=== PATIENT | male | born 1980 | race Caucasian/White ===

== ENCOUNTER 2017-01-04 11:20 | Emergency (ER) | payer OTHER ==
[~2017-01-04] VITALS: Ht 182.9 cm; Wt 85.8 kg
[~2017-01-04 11:20] MED LIST: RANI300T2 PO
[2017-01-04 11:48] VITALS: TEMP 36.4; Ht 182.9 cm; Wt 85.8 kg
--- NOTE | 2017-01-04 12:44 | EMERGENCY ROOM VISIT NOTE ---
History Report prepared by Randall: Cristo Christine Under the Supervision of: Dr. Shannan Iyer D.O. First contact with patient: 12:26 Chief Complaint: MENTAL HEALTH EVALUATION Stated Complaint: RINGING IN EAR History of Present Illness The patient is a 36 year old male who presents to the Emergency Room with complaints of episodes of hallucinations that started 2 days ago. He says that he was given a substance that he thought was cocaine 3 days ago, and he smoked it. The patient notes that as soon as he tasted it, he knew that it was not cocaine. The patient thinks it may have been bath salts or crystal meth. He took Suboxone after smoking the substance to try to sleep. A day later after smoking the substance, the patient started getting symptoms, including staring into space and not saying anything, per the patient's . The patient said he was concentrating because he was hearing something. He says that he has been hearing voices that consist of a artem and a girl. He says that he hears them often, and they are following him. Per the patient's , the patient last night kept saying that "they're at the door". The patient says that they are police, and they use walky-talkies that beep. The patient states that even in the waiting room here, he was hearing them. The patient notes that they would not come because there were dogs around. He wishes that the two people would come out if they are following him. The patient states that he has never had this kind of reaction before, and has never had mental health issues before. The patient used to be in the , and got into pain pills. The patient is not on the Suboxone program, but he buys Suboxone off the street, and uses it whenever he feels like he wants to get some pain pills. The patient started using cocaine in the past 8 months. He states that he had not been using recreational drugs much before the cocaine. He denies any major medical problems. He denies any chest pain, shortness of breath, palpitations, dizziness , cough, or diarrhea. The patient smokes cigarettes, but does not drink alcohol. Source of History: patient, spouse/significant other Onset: 2 days ago Position: other (global - hallucinations) Quality: other (hearing 2 voices, 1 artem and 1 girl that are following him) Timing: other (episodes) Associated Symptoms: No SOB, No chest pain, No cough, No diarrhea Note: Associated symptoms: Denies palpitations, dizziness. Review of Systems See HPI for pertinent positives & negatives. A total of 10 systems reviewed and were otherwise negative. Past Medical & Surgical Medical Problems: (1) Gout (2) Spinal stenosis Family History No pertinent family history Social History Smoking Status: Current Every Day Smoker Alcohol Use: none Drug Use: cocaine Marital Status: in relationship Housing Status: lives with significant other Occupation Status: employed Current/Historical Medications Scheduled Ranitidine (Zantac), 300 MG PO HS Allergies Coded Allergies: No Known Allergies (Unverified , 01/04/17) Physical Exam Vital Signs Date Time Temp Pulse Resp B/P Pulse Ox O2 Delivery O2 Flow Rate FiO2 01/04/17 14:00 113 20 135/90 98 Room Air 01/04/17 11:48 36.4 92 20 163/103 99 Room Air Physical Exam GENERAL: alert, well appearing, well nourished, no distress, non-toxic EYE EXAM: normal conjunctiva, PERRL and EOM's grossly intact OROPHARYNX: no exudate, no erythema, lips, buccal mucosa, and tongue normal and mucous membranes are moist NECK: supple, no nuchal rigidity, no adenopathy, non-tender LUNGS: Clear to auscultation. Normal chest wall mechanics HEART: no murmurs, S1 normal and S2 normal ABDOMEN: abdomen soft, non-tender, normo-active bowel sounds, no masses, no rebound or guarding. BACK: Back is symmetrical on inspection and there is no deformity, no midline tenderness, no CVA tenderness. SKIN: no rashes and no bruising UPPER EXTREMITIES: upper extremities are grossly normal. LOWER EXTREMITIES: No pitting edema. NEURO EXAM: Normal sensorium, cranial nerves II-XII grossly intact, normal speech, no gross weakness of arms, no gross weakness of legs. No drift. Finger to nose intact. Gross sensation intact. Medical Decision & Procedures Laboratory Results 01/04/17 12:44 Red Blood Count 5.06, Mean Corpuscular Volume 87.4, Mean Corpuscular Hemoglobin 29.4, Mean Corpuscular Hemoglobin Concent 33.7, Mean Platelet Volume 11.1, Neutrophils (%) (Auto) 65.8, Lymphocytes (%) (Auto) 22.7, Monocytes (%) (Auto) 8.9, Eosinophils (%) (Auto) 1.9, Basophils (%) (Auto) 0.5, Neutrophils # (Auto) 7.74, Lymphocytes # (Auto) 2.66, Monocytes # (Auto) 1.04, Eosinophils # (Auto) 0.22, Basophils # (Auto) 0.06 01/04/17 12:44 Test 01/04/17 12:44 01/04/17 13:05 White Blood Count 11.74 K/uL (4.8-10.8) Red Blood Count 5.06 M/uL (4.7-6.1) Hemoglobin 14.9 g/dL (14.0-18.0) Hematocrit 44.2 % (42-52) Mean Corpuscular Volume 87.4 fL (80-100) Mean Corpuscular Hemoglobin 29.4 pg (25-34) Mean Corpuscular Hemoglobin Concent 33.7 g/dl (32-36) Platelet Count 304 K/uL (130-400) Mean Platelet Volume 11.1 fL (7.4-10.4) Neutrophils (%) (Auto) 65.8 % Lymphocytes (%) (Auto) 22.7 % Monocytes (%) (Auto) 8.9 % Eosinophils (%) (Auto) 1.9 % Basophils (%) (Auto) 0.5 % Neutrophils # (Auto) 7.74 K/uL (1.4-6.5) Lymphocytes # (Auto) 2.66 K/uL (1.2-3.4) Monocytes # (Auto) 1.04 K/uL (0.11-0.59) Eosinophils # (Auto) 0.22 K/uL (0-0.5) Basophils # (Auto) 0.06 K/uL (0-0.2) RDW Standard Deviation 40.6 fL (36.4-46.3) RDW Coefficient of Variation 12.7 % (11.5-14.5) Immature Granulocyte % (Auto) 0.2 % Immature Granulocyte # (Auto) 0.02 K/uL (0.00-0.02) Anion Gap 3.0 mmol/L (3-11) Est Creatinine Clear Calc Drug Dose 94.3 ml/min Estimated GFR () 90.3 Estimated GFR (Non- 77.9 BUN/Creatinine Ratio 7.6 (10-20) Calcium Level 9.6 mg/dl (8.5-10.1) Total Bilirubin 0.6 mg/dl (0.2-1) Aspartate Amino Transf (AST/SGOT) 13 U/L (15-37) Alanine Aminotransferase (ALT/SGPT) 22 U/L (12-78) Alkaline Phosphatase 65 U/L (45-117) Total Protein 7.9 gm/dl (6.4-8.2) Albumin 4.6 gm/dl (3.4-5.0) Globulin 3.3 gm/dl (2.5-4.0) Albumin/Globulin Ratio 1.4 (0.9-2) Thyroid Stimulating Hormone (TSH) 1.090 uIu/ml (0.300-4.500) Salicylates Level 2.8 mg/dl (2.8-20) Acetaminophen Level < 2 ug/ml (10-30) Ethyl Alcohol mg/dL < 3.0 mg/dl (0-3) Urine Color YELLOW Urine Appearance CLEAR (CLEAR) Urine pH 7.0 (4.5-7.5) Urine Specific [place] 1.011 (1.000-1.030) Urine Protein NEG (NEG) Urine Glucose (UA) NEG (NEG) Urine Ketones NEG (NEG) Urine Occult Blood NEG (NEG) Urine Nitrite NEG (NEG) Urine Bilirubin NEG (NEG) Urine Urobilinogen NEG (NEG) Urine Leukocyte Esterase NEG (NEG) Urine Opiates Screen NEG (NEG) Urine Methadone, Qualitative NEG (NEG) Urine Barbiturates NEG (NEG) Urine Phencyclidine (PCP) Level NEG (NEG) Ur Amphetamine/Methamphetamine POS (NEG) MDMA (Ecstasy) Screen POS (NEG) Urine Benzodiazepines Screen NEG (NEG) Urine Cocaine Metabolite NEG (NEG) Urine Marijuana (THC) NEG (NEG) Laboratory results per my review. Medications Administered Medications (Trade) Dose Ordered Sig/Nabor Route Start Time Stop Time Status Last Admin Dose Admin Nicotine (Nicoderm Cq 21MG Patch) 1 patch STK-MED ONCE .ROUTE 01/04/17 17:12 01/04/17 17:13 DC 01/04/17 17:14 1 PATCH ED Course 1238: The patient was evaluated in room A6. A complete history and physical exam was performed. 1541: I reevaluated the patient and he still wants to go home. 1700: The mental health rn field case manager has informed me that the patient will sign a voluntary, and will be evaluated for further treatment at the [facility]. The patient verbally expressed understanding and agreement of the treatment plan. Medical Decision Differential diagnosis: Etiologies such as mood disorder, infection, hypoglycemia, electrolyte abnormalities, cardiac sources, intracerebral event, toxicologic, neurologic, as well as others were entertained. Patient admits to substance abuse, concern for additional psychiatric etiology of hallucinations and paranoia. In light of timing of ingestion and persistence of symptoms, patient evaluated for mental health. I feel patient is a safety risk going home, and after extensive bedside discussion patient agreed for voluntary admission. Labs otherwise reassuring. Did not feel patient warranted neuro imaging at this time. No recent trauma. Doubt occult infectious etiology, no evidence of joint abnormality. Impression Primary Impression: Hallucinations Additional Impressions: Paranoia Substance abuse Scribe Attestation The scribe's documentation has been prepared under my direction and personally reviewed by me in its entirety. I confirm that the note above accurately reflects all work, treatment, procedures, and medical decision making performed by me. Departure Information Dispostion Transfer Acute Care Facility (to [facility]) Referrals More Vazquez M.D. (PCP) Patient Instructions My [facility] Problem Qualifiers
[2017-01-04 13:02] LABS: BASO % 0.5 %; BASO ABS # 0.06 K/uL (0-0.2); COMPLETE YES; EOS % 1.9 %; HEMATOCRIT 44.2 % (42-52); IG% 0.2 %; LYMPH % 22.7 %; LYMPH ABS # 2.66 K/uL (1.2-3.4); MEAN CELL VOLUME 87.4 fL (80-100); MEAN CORPUSCULAR HEMOGLOBIN 29.4 pg (25-34); MEAN CORPUSCULAR HGB CONC 33.7 g/dl (32-36); MEAN PLATELET VOLUME 11.1 fL (7.4-10.4); MONO % 8.9 %; NEUT % 65.8 %; PLATELET COUNT 304 K/uL (130-400); RED BLOOD COUNT 5.06 M/uL (4.7-6.1); WHITE BLOOD COUNT 11.74 K/uL (4.8-10.8)
[2017-01-04 13:22] LABS: BUN/CREATININE RATIO 7.6 (10-20); CALCIUM 9.6 mg/dl (8.5-10.1); CREATININE 1.2 mg/dl (0.60-1.40)
[2017-01-04 13:32] LABS: ACETAMINOPHEN < 2 ug/ml (10-30); ALB/GLOB RATIO 1.4 (0.9-2); THYROID STIMULATING HORMONE 1.09 uIu/ml (0.300-4.500)
[2017-01-04 13:43] LABS: BENZODIAZEPINE, URINE NEG (NEG); COCAINE,URINE NEG (NEG); PHENCYCLIDINE, URINE NEG (NEG)
[2017-01-04 13:57] LABS: URINE APPEARANCE CLEAR (CLEAR); URINE BILIRUBIN NEG (NEG); URINE COLOR YELLOW; URINE NITRITE NEG (NEG); URINE SPECIFIC GRAVITY 1.011 (1.000-1.030); UROBILINOGEN NEG (NEG); ZZUR CULT IF INDIC CLEAN CATCH NO
[2017-01-04 13:59] LABS: MANUAL MICROSCOPIC REQUIRED? NO; REVIEW REQ? NO
[2017-01-04] MEDS ORDERED: NICOTINE 21 MG/24 HR TDSY ONE (17:12)
[2017-01-04] MEDS ORDERED: NURSING VERBAL MED ORDER ONE (17:15)
[2017-01-04] MEDS ORDERED: SODIUM CHLORIDE 0.9% 1000ML 1,000 ML IV STA (17:47)
[2017-01-04] MEDS ORDERED: hydrOXYzine HCL 10 MG TAB PO STA (20:26)
--- NOTE | 2017-01-04 20:52 | DIAGNOSTIC IMAGING REPORT ---
CT HEAD WITHOUT CONTRAST (CT) CLINICAL HISTORY: hallucinations COMPARISON STUDY: No previous studies for comparison. TECHNIQUE: Axial CT of the brain is performed from the vertex to the skull base. IV contrast was not administered for this examination. CT DOSE: 537.48 mGy.cm FINDINGS: No intra or extra-axial mass lesions are visualized. There is no CT evidence of acute cortical infarction. There is no evidence of midline shift. There is no acute hemorrhage. No calvarial fractures are visualized. There is no evidence of pathologic ventricular dilatation. There is no evidence of acute sinusitis IMPRESSION: Normal noncontrast head CT. Electronically signed by: Nelson Beatty M.D. 01/04/2017 8:50 PM Dictated Date/Time: 01/04/2017 8:50 PM
[2017-01-04 22:48] VITALS: BP 116/83; PULSE 120; O2SAT 98
[2017-01-12 11:43] LABS: SYNTHETIC CANNABINOIDS QL URIN NEGATIVE (Negative)
== END 2017-01-04 22:50 ==
LOC: C.EDB 11:22 → C.EDA 22:50
DX: R44.3 Hallucinations, unspecified (principal); F22 Delusional disorders; F19.10 Other psychoactive substance abuse, uncomplicated; Z79.899 Other long term (current) drug therapy; F17.200 Nicotine dependence, unspecified, uncomplicated

== ENCOUNTER → 2017-05-11 | Outpatient (CLI) | payer OTHER | END | disposition home or self-care (01) | LOC: C.LAB 17:08 | DX: Z02.83 Encounter for blood-alcohol and blood-drug test (principal) ==

== ENCOUNTER 2024-04-02 16:56 | Inpatient (IN) ==
[2024-04-02] MEDS: MULTI-VITAMIN INFUSION 10 ML, THIAMINE HCL 100 MG, FOLIC ACID 1 MG in SODIUM CHLORIDE 0... IV ONE (17:31)
[2024-04-02 18:00] LABS: Hematocrit (blood only) 37.9 % (42.0-52.0); Hemoglobin 12.8 g/dl (14.0-18.0); Mean Corpuscular Hemoglobin 32.6 pg (25.0-34.0); Mean Corpuscular Hgb Conc 33.8 g/dL (32.0-36.0); Mean Corpuscular Volume 96.4 fL (80.0-100.0); Mean Platelet Volume 10.5 fL (9.4-12.4); Platelet Count 274 K/uL (130-400); RDW Coefficient of Variation 15.9 % (11.5-14.5); RDW Standard Deviation 56.5 fL (36.4-46.3); Red Blood Count 3.93 M/uL (4.70-6.10); White Blood Count 13.13 K/ul (4.8-10.8)
[2024-04-02 18:48] LABS: Basophils # (auto) 0.14 K/uL (0.00-0.20); Basophils % (auto) 1.1 %; Eosinophils # (auto) 0.21 K/uL (0.00-0.50); Eosinophils % (auto) 1.6 %; Immature Granulocytes # (auto) 0.11 K/uL (0.01-0.20); Immature Granulocytes % (auto) 0.8 %; Lymphocytes # (auto) 6.75 K/uL (1.20-3.40); Lymphocytes % (auto) 51.4 %; Monocytes # (auto) 0.98 K/uL (0.11-0.59); Monocytes % (auto) 7.5 %; Neutrophils # (auto) 4.94 K/uL (1.40-6.50); Neutrophils % (auto) 37.6 %
--- NOTE | 2024-04-02 18:51 | Emergency Department Note ---
Impression & Plan Alcohol withdrawal syndrome, Alcoholic intoxication ED Provider Note NAME: ASTRID PERZE AGE: 43 SEX: M : 1980 ARRIVES VIA: Walk-In INFORMANT: Patient, ED PROVIDER(S): Shawnee Garcia MD CHIEF COMPLAINT: Alcohol withdrawal HPI: This is a 43-year-old male presenting for alcohol withdrawal. Patient states that he has been drinking excessively for 5 years, every single day. He notes that more recently he has been drinking "1 gallon of siri radha per day as well as 12 twisted teas ". He states he is never gone 1 day without drinking. He notes when he wakes up he is nauseous, tremulous and very anxious. He drinks all day, every day. He reports he wants to get sober and detox. He reports no current chest pain, nausea, vomiting, diarrhea, arm pain, leg pain, headache, vision changes. He last drank about 3 hours prior to arrival ROS: See above HPI for pertinent positives & negatives. A total of 10 systems reviewed and were otherwise negative. PHYSICAL EXAMINATION: General: resting comfortably in no acute distress, anxious appearing, tearful Head: Normocephalic and atraumatic Eyes: Normal inspection, extraocular muscles intact Ear, nose, throat: Normal external exam Neck: Normal range of motion Respiratory: lungs clear to auscultation bilaterally Cardiovascular: Regular rate/rhythm, no murmur GI: soft, nontender, no guarding or rebound Extremities: nontender, moves all extremities Neuro: The patient awake and alert, appropriately conversive, no focal deficits, symmetric faces Skin: Warm, dry, and intact MEDICAL DECISION MAKING: This is a 43-year-old male presenting for alcohol use disorder/detox request. Will do basic screening blood work. Will give Valium 10 mg due to tachycardia at this time. His heart rate is already between 115 and 130. Will continue to give Valium 10 mg to 20 mg as needed for withdrawal symptoms. -Patient's blood work is reviewed and shows a slight leukocytosis, slight anemia. Electrolytes slightly hypokalemic. No significant bilirubin elevation -Patient continues to be somewhat tremulous and tachycardic. Will redose the Valium at this time -Patient had downtrending heart rate,. More comfortable at this time. Will admit for alcohol detox Differential diagnosis: Alcohol withdrawal, cirrhosis, hepatorenal syndrome ER treatment provided: See below Diagnostics interpreted by me: ECG: None Cardiac Monitoring: An order was placed for continuous cardiac monitoring. The monitor shows a rate of 89 with sinus rhythm. Laboratory studies: As stated above and show below. Imaging studies: See below. Critical Care Note: I have personally spent 40 minutes of critical care time in the direct management of this patient. This includes bedside care, interpretation of diagnostic studies, and testing, discussion with consultants, patient, and family members, and other required patient management activities. This 40 minutes is in excess of all separately billable procedures. Past Med/Surg History Problem List (Updated 04/03/24 @ 00:00 by Shawnee Garcia MD) Alcoholic intoxication (Acute) Alcohol withdrawal syndrome (Acute) Pain, dental (Acute) GERD (gastroesophageal reflux disease) (Acute) Spinal stenosis Gout (Chronic) Pain of left great toe (Acute) Pain, dental (Acute) Surgical History Hx of knee surgery Family History Other No significant family history Social History Smoking Status: Current every day smoker Tobacco Type: Cigarettes Second Hand Exposure: No; Do You Dip or Chew Tobacco: No; Tobacco Cessation Education Requested by Patient: No Hx Alcohol Use: Yes Alcohol type: beer and hard liquor Hx Substance Use: No Preferred Language: Iranian Communication Ability: Effective Corporate Administrator Required: No Beliefs That Will Affect Care: None marital status: Single Current Living Situation: Homeless current occupational status: unemployed Other Information That Helps Us Care for You: No Feels Safe at Home: Hesitant to Answer Safety Concerns: Afraid for Self Assistive Devices: Denture - Upper Allergies Allergies Allergy/AdvReac Type Severity Reaction Status Date / Time No Known Allergies Allergy Verified 04/02/24 18:34 Home Meds Home Medications Medication Instructions Recorded Confirmed acetaminophen 500 mg tablet 1,000 mg PO Q6H PRN Pain 01/12/23 04/02/24 (Tylenol Extra Strength) ibuprofen 200 mg tablet 600 mg PO Q8 PRN Pain 01/12/23 04/02/24 omeprazole 20 mg capsule,delayed 20 mg PO DAILY PRN Acid Reflux 01/12/23 04/02/24 release lidocaine 5 % topical patch 1 patch topical DAILY PRN Pain 02/07/23 04/02/24 (Lidoderm) gabapentin 100 mg capsule 100 mg PO QAM 04/02/24 04/02/24 gabapentin 600 mg tablet 600 mg PO HS 04/02/24 04/02/24 Previous Rx's Medication Instructions Recorded cyclobenzaprine 10 mg tablet 10 mg PO TID PRN muscle spasm #10 01/13/23 tabs methocarbamol 500 mg tablet 500 mg PO Q8H PRN pain #20 tabs 02/07/23 Results & Data (ED) Vital Signs Vital Signs - 24 hr 04/02/24 17:01 04/02/24 17:11 04/02/24 17:18 Temperature 36.5 C Temperature Source Oral Pulse Rate 122 H 119 H 117 H Pulse Rate [Apical] Respiratory Rate 20 22 Respiratory Effort / Characteristics Non-Labored Respiratory Depth Normal Blood Pressure 143/104 H Blood Pressure [Left Arm] Blood Pressure Mean 117 Blood Pressure Mean [Left Arm] Blood Pressure Position [Left Arm] Pulse Oximetry 96 Oxygen Delivery Method Room Air Sepsis Recent Fever Within 48 Hours No Sepsis New/Unexplained Change in Mental Status No Sepsis Action Taken by Nursing No Action Required 04/02/24 17:19 04/02/24 17:20 04/02/24 17:20 Temperature Temperature Source Pulse Rate Pulse Rate [Apical] 125 H Respiratory Rate 19 Respiratory Effort / Characteristics Respiratory Depth Blood Pressure 146/97 H Blood Pressure [Left Arm] 146/97 H Blood Pressure Mean 102 Blood Pressure Mean [Left Arm] 113 Blood Pressure Position [Left Arm] Pulse Oximetry 94 98 Oxygen Delivery Method Room Air Room Air Sepsis Recent Fever Within 48 Hours Sepsis New/Unexplained Change in Mental Status Sepsis Action Taken by Nursing 04/02/24 17:21 04/02/24 17:24 04/02/24 17:30 Temperature Temperature Source Pulse Rate 115 H 117 H Pulse Rate [Apical] Respiratory Rate 17 Respiratory Effort / Characteristics Respiratory Depth Blood Pressure 128/97 Blood Pressure [Left Arm] Blood Pressure Mean 104 Blood Pressure Mean [Left Arm] Blood Pressure Position [Left Arm] Pulse Oximetry 98 99 Oxygen Delivery Method Sepsis Recent Fever Within 48 Hours Sepsis New/Unexplained Change in Mental Status Sepsis Action Taken by Nursing 04/02/24 17:36 04/02/24 17:45 04/02/24 17:57 Temperature Temperature Source Pulse Rate 106 H 105 H Pulse Rate [Apical] Respiratory Rate 24 20 Respiratory Effort / Characteristics Respiratory Depth Blood Pressure Blood Pressure [Left Arm] Blood Pressure Mean Blood Pressure Mean [Left Arm] Blood Pressure Position [Left Arm] Pulse Oximetry 97 97 97 Oxygen Delivery Method Sepsis Recent Fever Within 48 Hours Sepsis New/Unexplained Change in Mental Status Sepsis Action Taken by Nursing 04/02/24 18:00 04/02/24 18:03 04/02/24 18:18 Temperature Temperature Source Pulse Rate 109 H 114 H Pulse Rate [Apical] Respiratory Rate 18 15 Respiratory Effort / Characteristics Respiratory Depth Blood Pressure 140/94 Blood Pressure [Left Arm] Blood Pressure Mean 101 Blood Pressure Mean [Left Arm] Blood Pressure Position [Left Arm] Pulse Oximetry 97 97 Oxygen Delivery Method Sepsis Recent Fever Within 48 Hours Sepsis New/Unexplained Change in Mental Status Sepsis Action Taken by Nursing 04/02/24 18:21 04/02/24 18:35 04/02/24 19:12 Temperature 36.9 C Temperature Source Oral Pulse Rate 106 H Pulse Rate [Apical] 110 H Respiratory Rate 17 16 Respiratory Effort / Characteristics Respiratory Depth Blood Pressure 109/91 Blood Pressure [Left Arm] 128/96 Blood Pressure Mean 98 Blood Pressure Mean [Left Arm] 106 Blood Pressure Position [Left Arm] Sitting Pulse Oximetry 98 98 Oxygen Delivery Method Sepsis Recent Fever Within 48 Hours Sepsis New/Unexplained Change in Mental Status Sepsis Action Taken by Nursing 04/02/24 21:00 04/02/24 21:08 Temperature 36.8 C Temperature Source Oral Pulse Rate 105 H Pulse Rate [Apical] 94 H Respiratory Rate 24 Respiratory Effort / Characteristics Respiratory Depth Blood Pressure Blood Pressure [Left Arm] 122/80 Blood Pressure Mean Blood Pressure Mean [Left Arm] 94 Blood Pressure Position [Left Arm] Pulse Oximetry 96 Oxygen Delivery Method Room Air Sepsis Recent Fever Within 48 Hours Sepsis New/Unexplained Change in Mental Status Sepsis Action Taken by Nursing Laboratory Data 04/02/24 17:19 04/02/24 19:26 Lab Results 04/02/24 04/02/24 Range/Units 17:19 19:26 WBC 13.13 H (4.8-10.8) K/ul RBC 3.93 L (4.70-6.10) M/uL Hgb 12.8 L (14.0-18.0) g/dl Hct 37.9 L (42.0-52.0) % MCV 96.4 (80.0-100.0) fL MCH 32.6 (25.0-34.0) pg MCHC 33.8 (32.0-36.0) g/dL RDW Std Deviation 56.5 H (36.4-46.3) fL RDW Coeff of Dhiraj 15.9 H (11.5-14.5) % Plt Count 274 (130-400) K/uL MPV 10.5 (9.4-12.4) fL Immature Gran % (Auto) 0.8 % Neut % (Auto) 37.6 % Lymph % (Auto) 51.4 % [place] % (Auto) 7.5 % Eos % (Auto) 1.6 % Baso % (Auto) 1.1 % Neut # (Auto) 4.94 (1.40-6.50) K/uL Lymph # (Auto) 6.75 H (1.20-3.40) K/uL [place] # (Auto) 0.98 H (0.11-0.59) K/uL Eos # (Auto) 0.21 (0.00-0.50) K/uL Baso # (Auto) 0.14 (0.00-0.20) K/uL Immature Gran # (Auto) 0.11 (0.01-0.20) K/uL PT 11.1 (9.0-12.0) Seconds INR 1.0 (0.9-1.1) Sodium TNP 137 Potassium TNP 3.1 L Chloride 102 (98-107) mmol/L Carbon Dioxide 19 L (21-32) mmol/L Anion Gap TNP BUN 2 L (6-23) mg/dl Creatinine 0.76 (0.6-1.4) mg/dl Est Cr Clr Drug Dosing 139.0 ml/min Est GFR ( Amer) 130.4 ml/min Est GFR (Non-Af Amer) 112.5 ml/min BUN/Creatinine Ratio 2.6 L (10-20) Glucose 135 H (70-99(Fasting)) mg/dl Calcium 8.6 (8.6-10.3) mg/dl Magnesium TNP 2.0 Total Bilirubin 0.5 (0.2-1.0) mg/dl Direct Bilirubin TNP 0.1 AST TNP 66 H ALT 42 (7-52) U/L Alkaline Phosphatase 133 H (34-104) U/L Total Protein 7.9 (6.0-8.3) gm/dl Albumin 4.1 (3.4-5.0) gm/dl Lipase 50 (11-82) U/L Ethyl Alcohol mg/dL 368.8 H (<10.0) mg/dl Administered Medications Cyclobenzaprine HCl (Cyclobenzaprine Hcl 10 Mg Tab) 10 mg PO TID PRN PRN Reason: muscle spasm Stop: 05/02/24 22:52 Last Admin: 04/02/24 23:38 Dose: 10 mg Documented By: KEYANA Potassium Chloride 20 meq/ (Lactated Ringer's) 1,010 mls @ 100 mls/hr IV .Q10H6M ONE Stop: 04/03/24 07:20 Last Admin: 04/02/24 21:37 Dose: 100 mls/hr Documented By: JULIANA Discontinued Medications Chlordiazepoxide HCl (Chlordiazepoxide Hcl 25 Mg Cap) 50 mg PO ONE STA Stop: 04/02/24 21:43 Last Admin: 04/02/24 22:09 Dose: 50 mg Documented By: JULIANA Diazepam (Diazepam 5 Mg/Ml 10ml Vial) 10 mg IV NOW STA Stop: 04/02/24 17:32 Last Admin: 04/02/24 19:58 Dose: Not Given Documented By: JULIANA Diazepam (Diazepam 5 Mg/Ml 10ml Vial) 10 mg IV NOW STA Stop: 04/02/24 19:36 Last Admin: 04/02/24 19:45 Dose: 10 mg Documented By: JULIANA Multivitamins 10 ml/ Thiamine HCl 100 mg/ Folic Acid 1 mg/Sodium Chloride 1,011.2 mls @ 500 mls/hr IV .Q2H2M ONE Stop: 04/02/24 19:10 Last Infusion: 04/02/24 20:27 Dose: Infused Documented By: Admin: 04/02/24 17:31 Dose: 500 mls/hr Documented By: LOS Ketorolac Tromethamine (Ketorolac Tromethamine 15 Mg/Ml Vial) 15 mg IV NOW ONE Stop: 04/02/24 23:22 Last Admin: 04/02/24 23:38 Dose: 15 mg Documented By: KEYANA Nicotine (Nicotine 21 Mg/24 Hr Tdsy) 1 patch TD ONE STA Stop: 04/02/24 21:32 Last Admin: 04/02/24 21:46 Dose: 1 patch Documented By: JULIANA Oxycodone HCl (Oxycodone Hcl Ir 5 Mg Tab (Immediate Release)) 5 mg PO NOW STA Stop: 04/02/24 21:31 Last Admin: 04/02/24 21:46 Dose: 5 mg Documented By: JULIANA Potassium Chloride (Potassium Chloride Pwd 20 Meq Pack) 40 meq PO NOW STA Stop: 04/02/24 21:05 Last Admin: 04/02/24 21:34 Dose: 40 meq Documented By: JULIANA Potassium Chloride (Potassium Chloride Pwd 20 Meq Pack) 40 meq PO ONE ONE Stop: 04/02/24 23:01 Last Admin: 04/02/24 23:39 Dose: 40 meq Documented By: KEYANA Discharge Plan Visit Data Chief Complaint: Detox Request Stated Complaint: ARM PAIN/BOTH SIDES, ALC DETOX ED Provider: Shawnee Garcia Discharge Problem: Alcohol withdrawal syndrome, Alcoholic intoxication Patient Disposition: Admitted As Inpatient Discharge Instructions Interventions: ED Discharge Assessment Last Done: 04/02/24 22:22
[2024-04-02 18:53] LABS: Alanine Aminotransferase 42 U/L (7-52); Albumin Level 4.1 gm/dl (3.4-5.0); Alkaline Phosphatase 133 U/L (34-104); BUN Creatinine Ratio 2.6 (10-20); Bilirubin,Total 0.5 mg/dl (0.2-1.0); Blood Urea Nitrogen 2 mg/dl (6-23); Calcium 8.6 mg/dl (8.6-10.3); Carbon Dioxide 19 mmol/L (21-32); Chloride 102 mmol/L (98-107); Est GFR (African American) 130.4 ml/min; Est GFR (Non-African American) 112.5 ml/min; Glucose 135 mg/dl (70-99(Fasting)); Lipase 50 U/L (11-82); Total Protein 7.9 gm/dl (6.0-8.3)
[2024-04-02] MEDS: diazePAM 5 MG/ML 10ML VIAL IV STA ×2 (19:45→19:58)
[2024-04-02 20:09] LABS: Bilirubin Direct 0.1 mg/dl (0-0.2); Potassium 3.1 mmol/L (3.5-5.1)
--- NOTE | 2024-04-02 21:31 | History & Physical Report ---
Date of Service April 02, 2024 Assessment & Plan (1) Alcohol withdrawal syndrome: Plan: Sepsis SIRS with note of procalcitonin elevation possible sources: Infectious diarrhea rule out C. difficile ? Joint pathology given worsening bilateral shoulder pain UTI Hypokalemia secondary to diarrhea Acute on chronic anemia (baseline hemoglobin of 13), no overt source of bleed for now, FOBT done at the ER was negative Alcoholic hepatitis, likely good prognosis with normal PT level possible LILIANA mood disorder, patient not suicidal, patient not on maintenance medications Hyperglycemia rule out DM history of substance abuse ongoing tobacco abuse Admit to medical telemetry ERICA S, DT precautions CS, stool CS, C. difficile Check UA Cefepime for empiric coverage for now until source found Oral vancomycin 1 dose now for possible C. difficile given sepsis criteria CT shoulders re: worsening pain Replace potassium Anemia workup Outpatient sleep study Psych consult as per patient request Re: Depression Check hemoglobin A1c Nicotine patch DVT prophylaxis. Lovenox subcu Full code Text document was generated using [employer] voice recognition software. It may contain grammatical or spelling errors. Kindly contact undersigned for clarification of any documentation item in question. History of Present Illness Chief Complaint: Detox Primary Care Provider: Nayeli Gutierrez MD History obtained from patient and records. Medical history significant for chronic anemia (baseline hemoglobin of 13), GERD, possible LILIANA, gout, mood disorder, history of substance abuse, ongoing tobacco/alcohol abuse. Patient not feeling well the last few days. Watery stools of 1 month duration with nausea symptoms. No abdominal pain. Denies black/bloody stools, hematuria or unusual bleeding. Denies chest pain, SOB, cough symptoms. Longstanding possible sleep apnea symptoms. Worsening bilateral shoulder pain going on for some time now. Denies neck pain. Admits to depression but denies suicidality. Patient consulted ER due to wishes for detox. 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 Allergies Allergy/AdvReac Type Severity Reaction Status Date / Time No Known Allergies Allergy Verified 04/02/24 18:34 Home Medications Medication Instructions Recorded Confirmed Type acetaminophen 500 mg tablet 1,000 mg PO Q6H PRN Pain 01/12/23 04/02/24 History (Tylenol Extra Strength) ibuprofen 200 mg tablet 600 mg PO Q8 PRN Pain 01/12/23 04/02/24 History omeprazole 20 mg capsule,delayed 20 mg PO DAILY PRN Acid Reflux 01/12/23 04/02/24 History release cyclobenzaprine 10 mg tablet 10 mg PO TID PRN muscle spasm #10 01/13/23 04/02/24 Rx tabs lidocaine 5 % topical patch 1 patch topical DAILY PRN Pain 02/07/23 04/02/24 History (Lidoderm) methocarbamol 500 mg tablet 500 mg PO Q8H PRN pain #20 tabs 02/07/23 04/02/24 Rx gabapentin 100 mg capsule 100 mg PO QAM 04/02/24 04/02/24 History gabapentin 600 mg tablet 600 mg PO HS 04/02/24 04/02/24 History Past Med/Surg History Problem List (Updated 04/03/24 @ 00:00 by Shawnee Garcia MD) Alcoholic intoxication (Acute) Alcohol withdrawal syndrome (Acute) Pain, dental (Acute) GERD (gastroesophageal reflux disease) (Acute) Spinal stenosis Gout (Chronic) Pain of left great toe (Acute) Pain, dental (Acute) Surgical History Hx of knee surgery Family History Other No significant family history Social History Smoking Status: Current every day smoker Tobacco Type: Cigarettes Second Hand Exposure: No; Do You Dip or Chew Tobacco: No; Tobacco Cessation Education Requested by Patient: No Hx Alcohol Use: Yes Alcohol type: beer and hard liquor Hx Substance Use: No Preferred Language: [place] Communication Ability: Effective Rn Patient Services Required: No Beliefs That Will Affect Care: None marital status: Single Current Living Situation: Homeless current occupational status: unemployed Other Information That Helps Us Care for You: No Feels Safe at Home: Hesitant to Answer Safety Concerns: Afraid for Self Assistive Devices: Denture - Upper Review of Systems Review of Systems: As per HPI, all other systems reviewed and negative Physical Exam Physical Exam: GENERAL: uncomfortable, tearful, no respiratory distress SKIN: Pallor,, warm HEENT: Pale palpebral conjunctivae, no ptosis, dry buccal mucosa NECK : Supple, no tenderness CHEST : CTA, no tenderness HEART : Tachycardic, no obvious murmurs ABDOMEN: Some distention, nontender RECTAL : Intact sphincter, brown stool (FOBT negative) EXTREMITIES : No LE swelling/tenderness, minimal upper extremity tenderness, no other conspicuous deformities noted NEUROLOGIC : Coherent, no facial asymmetry, no other gross focality Results & Data Results & Data Vital Signs (Past 12 Hours) Vital Signs Temp Pulse Pulse Resp BP BP Pulse Ox 04/02/24 21:08 105 H 04/02/24 19:12 36.9 C 110 H 16 128/96 98 04/02/24 18:35 109/91 04/02/24 18:21 106 H 17 98 04/02/24 18:18 114 H 15 97 04/02/24 18:03 109 H 18 97 04/02/24 18:00 140/94 04/02/24 17:57 105 H 20 97 04/02/24 17:45 106 H 24 97 04/02/24 17:36 97 04/02/24 17:30 128/97 04/02/24 17:24 117 H 99 04/02/24 17:21 115 H 17 98 04/02/24 17:20 146/97 H 04/02/24 17:20 125 H 19 146/97 H 98 04/02/24 17:19 94 04/02/24 17:18 117 H 22 04/02/24 17:11 119 H 04/02/24 17:01 36.5 C 122 H 20 143/104 H 96 O2 Del Method 04/02/24 21:08 04/02/24 19:12 04/02/24 18:35 04/02/24 18:21 04/02/24 18:18 04/02/24 18:03 04/02/24 18:00 04/02/24 17:57 04/02/24 17:45 04/02/24 17:36 04/02/24 17:30 04/02/24 17:24 04/02/24 17:21 04/02/24 17:20 04/02/24 17:20 Room Air 04/02/24 17:19 Room Air 04/02/24 17:18 04/02/24 17:11 04/02/24 17:01 Room Air Laboratory Results Laboratory Results WBC 13.13 K/ul (4.8-10.8) H 04/02/24 17:19 RBC 3.93 M/uL (4.70-6.10) L 04/02/24 17:19 Hgb 12.8 g/dl (14.0-18.0) L 04/02/24 17:19 Hct 37.9 % (42.0-52.0) L 04/02/24 17:19 MCV 96.4 fL (80.0-100.0) 04/02/24 17:19 MCH 32.6 pg (25.0-34.0) 04/02/24 17:19 MCHC 33.8 g/dL (32.0-36.0) 04/02/24 17:19 RDW Std Deviation 56.5 fL (36.4-46.3) H 04/02/24 17:19 RDW Coeff of Dhiraj 15.9 % (11.5-14.5) H 04/02/24 17:19 Plt Count 274 K/uL (130-400) 04/02/24 17:19 MPV 10.5 fL (9.4-12.4) 04/02/24 17:19 Immature Gran % (Auto) 0.8 % 04/02/24 17:19 Neut % (Auto) 37.6 % 04/02/24 17:19 Lymph % (Auto) 51.4 % 04/02/24 17:19 [place] % (Auto) 7.5 % 04/02/24 17:19 Eos % (Auto) 1.6 % 04/02/24 17:19 Baso % (Auto) 1.1 % 04/02/24 17:19 Neut # (Auto) 4.94 K/uL (1.40-6.50) 04/02/24 17:19 Lymph # (Auto) 6.75 K/uL (1.20-3.40) H 04/02/24 17:19 [place] # (Auto) 0.98 K/uL (0.11-0.59) H 04/02/24 17:19 Eos # (Auto) 0.21 K/uL (0.00-0.50) 04/02/24 17:19 Baso # (Auto) 0.14 K/uL (0.00-0.20) 04/02/24 17:19 Immature Gran # (Auto) 0.11 K/uL (0.01-0.20) 04/02/24 17:19 Sodium 137 mmol/L (136-145) 04/02/24 19:26 Potassium 3.1 mmol/L (3.5-5.1) L 04/02/24 19:26 Chloride 102 mmol/L (98-107) 04/02/24 17:19 Carbon Dioxide 19 mmol/L (21-32) L 04/02/24 17:19 Anion Gap TNP 04/02/24 17:19 BUN 2 mg/dl (6-23) L 04/02/24 17:19 Creatinine 0.76 mg/dl (0.6-1.4) 04/02/24 17:19 Est Cr Clr Drug Dosing 139.0 ml/min 04/02/24 17:19 Est GFR ( Amer) 130.4 ml/min 04/02/24 17:19 Est GFR (Non-Af Amer) 112.5 ml/min 04/02/24 17:19 BUN/Creatinine Ratio 2.6 (10-20) L 04/02/24 17:19 Glucose 135 mg/dl (70-99(Fasting)) H 04/02/24 17:19 Calcium 8.6 mg/dl (8.6-10.3) 04/02/24 17:19 Magnesium 2.0 mg/dl (1.7-2.4) 04/02/24 19:26 Total Bilirubin 0.5 mg/dl (0.2-1.0) 04/02/24 17:19 Direct Bilirubin 0.1 mg/dl (0-0.2) 04/02/24 19:26 AST 66 U/L (13-39) H 04/02/24 19:26 ALT 42 U/L (7-52) 04/02/24 17:19 Alkaline Phosphatase 133 U/L (34-104) H 04/02/24 17:19 Total Protein 7.9 gm/dl (6.0-8.3) 04/02/24 17:19 Albumin 4.1 gm/dl (3.4-5.0) 04/02/24 17:19 Lipase 50 U/L (11-82) 04/02/24 17:19 Ethyl Alcohol mg/dL 368.8 mg/dl (<10.0) H 04/02/24 17:19 Diagnostic Findings EKG as per my interpretation :Rate 120, sinus tachycardia, normal axis, T wave flattening inferior leads
[2024-04-02] MEDS: POTASSIUM CHLORIDE PWD 20 MEQ PACK PO STA (21:34)
[2024-04-02] MEDS ORDERED: chlordiazePOXIDE ALCOHOL WITHDRAWL 50MG PO STA (21:35)
[2024-04-02] MEDS ORDERED: LORazepam 3 MG in SYRINGE 1.5 ML IV PRN (21:35)
[2024-04-02] MEDS ORDERED: Ativan IV Alcohol Withdrawal--Active Protocol IV PRN (21:35)
[2024-04-02] MEDS ORDERED: oxyCODONE HCL IR 5 MG TAB (IMMEDIATE RELEASE) PO PRN (21:35)
[2024-04-02] MEDS: POTASSIUM CHLORIDE 20 MEQ in LACTATED RINGER'S 1,000 ML IV ONE (21:37)
[2024-04-02] MEDS: oxyCODONE HCL IR 5 MG TAB (IMMEDIATE RELEASE) PO STA (21:46)
[2024-04-02] MEDS: NICOTINE 21 MG/24 HR TDSY TD STA (21:46)
[2024-04-02 22:01] LABS: Prothrombin Time 11.1 Seconds (9.0-12.0)
[2024-04-02] MEDS: chlordiazePOXIDE HCl 25 MG CAP PO STA (22:06)
[2024-04-02] MEDS ORDERED: PANTOprazole 40 MG TAB PO PRN (22:56)
[2024-04-02] MEDS: KETOROLAC TROMETHAMINE 15 MG/ML VIAL IV ONE (23:38)
[2024-04-02] MEDS: CYCLOBENZAPRINE HCL 10 MG TAB PO PRN (23:38)
[2024-04-02] MEDS: POTASSIUM CHLORIDE PWD 20 MEQ PACK PO ONE (23:39)
[2024-04-03] MEDS: OPTIRAY 320 100ml IV ONE (01:53)
[2024-04-03] MEDS: LORazepam 1 MG in SYRINGE 0.5 ML IV PRN (02:02)
[2024-04-03] MEDS: CEFEPIME 2,000 MG in SYRINGE 0 ML IV SCH (02:03)
[2024-04-03 02:22] LABS: Hematocrit (blood only) 32.2 % (42.0-52.0); Hemoglobin 10.8 g/dl (14.0-18.0); Mean Corpuscular Hemoglobin 32.2 pg (25.0-34.0); Mean Corpuscular Hgb Conc 33.5 g/dL (32.0-36.0); Mean Corpuscular Volume 96.1 fL (80.0-100.0); Mean Platelet Volume 10.2 fL (9.4-12.4); Platelet Count 189 K/uL (130-400); RDW Coefficient of Variation 15.9 % (11.5-14.5); RDW Standard Deviation 56.6 fL (36.4-46.3); Red Blood Count 3.35 M/uL (4.70-6.10); Reticulocyte % 2.47 % (0.50-2.00); White Blood Count 7.77 K/ul (4.8-10.8)
--- NOTE | 2024-04-03 02:40 | CT Scan Report ---
Exam(s): CT RIGHT SHOULDER With Contrast IV Amt: 92 cc opti 320 EXAM: CT Right Upper Extremity With Intravenous Contrast, Shoulder CLINICAL HISTORY: Reason for exam: worsening pain, sepsis. TECHNIQUE: Axial computed tomography images of the right shoulder with intravenous contrast. CTDI is 23.23 mGy and DLP is 685.26 mGy-cm. Automated exposure control was utilized for the study. A dose lowering technique was utilized adhering to the principles of ALARA. CONTRAST: Patient received 92 cc opti 320 of IV contrast COMPARISON: No relevant prior studies available. FINDINGS: Bones/joints: Acute T11 vertebral body compression fracture resulting in 2% vertebral body height loss. No dislocation. Soft tissues: Unremarkable. No abnormal contrast enhancement. IMPRESSION: Normal right shoulder CT. T11 vertebral body compression fracture resulting in 10% vertebral body height loss Electronically signed by: Stefano Fleming MD 04/03/24 02:39 AM
[2024-04-03 02:53] LABS: Albumin Globulin Ratio 1.3 (0.9-2); Albumin Level 3.4 gm/dl (3.4-5.0); BUN Creatinine Ratio 2.7 (10-20); Basophils # (auto) 0.07 K/uL (0.00-0.20); Basophils % (auto) 0.9 %; Bilirubin,Total 0.6 mg/dl (0.2-1.0); Calcium 7.8 mg/dl (8.6-10.3); Creatinine Clr Calc Pharmacy 144.7 ml/min; Eosinophils # (auto) 0.21 K/uL (0.00-0.50); Eosinophils % (auto) 2.7 %; Est GFR (African American) 132.6 ml/min; Est GFR (Non-African American) 114.4 ml/min; Globulin 2.7 gm/dl (2.5-4.0); Immature Granulocytes # (auto) 0.07 K/uL (0.01-0.20); Immature Granulocytes % (auto) 0.9 %; Lymphocytes # (auto) 3.91 K/uL (1.20-3.40); Lymphocytes % (auto) 50.3 %; Monocytes # (auto) 0.59 K/uL (0.11-0.59); Monocytes % (auto) 7.6 %; Neutrophils # (auto) 2.92 K/uL (1.40-6.50); Neutrophils % (auto) 37.6 %; Potassium 4.1 mmol/L (3.5-5.1); Total Protein 6.1 gm/dl (6.0-8.3)
[2024-04-03 02:54] LABS: Ferritin 546.3 ng/ml (8-388)
[2024-04-03 03:00] LABS: Folate (Folic Acid),Ser orPlas 18.97 ng/ml (>5.38)
--- NOTE | 2024-04-03 03:02 | CT Scan Report ---
Exam(s): CT LEFT SHOULDER With Contrast IV Amt: 92 cc opti 320 EXAM: CT Left Upper Extremity With Intravenous Contrast, Shoulder CLINICAL HISTORY: Reason for exam: worsening pain, sepsis. TECHNIQUE: Axial computed tomography images of the left shoulder with intravenous contrast. CTDI is 23.23 mGy and DLP is 685.26 mGy-cm. Automated exposure control was utilized for the study. A dose lowering technique was utilized adhering to the principles of ALARA. CONTRAST: Patient received 92 cc opti 320 of IV contrast COMPARISON: No relevant prior studies available. FINDINGS: Bones/joints: Unremarkable. No acute fracture. No dislocation. Soft tissues: Unremarkable. No abnormal contrast enhancement. IMPRESSION: Normal left shoulder CT. Electronically signed by: Stefano Fleming MD 04/03/24 03:01 AM
[2024-04-03] MEDS: VANCOMYCIN HCL 125 MG/2.5ML SOLN PO STA (03:39)
[2024-04-03] MEDS: CHERRY SYRUP 5 ML UDP PO STA (03:39)
[2024-04-03] MEDS: chlordiazePOXIDE HCl 25 MG CAP PO SCH ×2 (03:40→23:03)
[2024-04-03 05:29] LABS: Appearance Urine Clear (Clear); Bilirubin Urine Negative (Negative); Blood Urine Negative (Negative); Color Urine Yellow; Glucose Urine UA Negative (Negative); Ketones Urine Negative (Negative); Leukocyte Esterase Urine Negative (Negative); Nitrite Urine Negative (Negative); Protein Urine Negative (Negative); Specific Gravity Urine 1.005 (1.000-1.030); Urobilinogen Urine Negative (Negative); pH Urine 5.5 (4.5-7.5)
--- OUTSIDE RECORDS SUMMARY | 2024-04-03 05:38 | External Medical Summary | Summary of Care ---
Author Name Unknown Organization [facility] Address [address] [place] [address] Phone [phone] Care Team Providers Care Pattern Stamper Name Role Phone Nayeli Gutierrez MD Primary Care Provid er Encounter Details Date Type Department Care Team (Late st Contact Info) Description 11/10/2023 Patient Reported Data Patient Survey Ortho OBERD Allergies No known active allergiesdocumented as of this encounter (statuses as of 11/10/2023) Medications Medication Sig Dispensed Refills Start Date End Date Status Omeprazole 10 MG Oral Capsule Delayed Release (Prilosec) Take 1 Capsule by mouth in the morning. 0 Active Multivitamin Men Oral Tablet Take by mouth. 0 Active Lidocaine 5 % External Patch (Lidoderm) apply 1 patch TO THE AFFECTED AREA DAILY. LEAVE ON MOST PAINFUL A... (REFER TO PRESCRIPTION NOTES). 0 01/12/2023 Active Colchicine 0.6 MG Oral TabletIndications: Gouty arthropathy Take twice a day while in a gout flare up - stop 3 days after pain has resolved. 60 Tablet 5 02/14/2023 Active Additional Information Patient not taking.Reported on 08/14/2023 Allopurinol 100 MG Oral Tablet (Zyloprim)Indicati ons:Chronic gout without tophus, unspecified cause, unspecified site Take 1 Tablet by mouth in the morning. 30 Tablet 11 08/14/2023 Active Gabapentin 100 MG Oral Capsule (Neurontin)Indicat ions:Paresthesia Take 1 Capsule by mouth in the morning. 90 Capsule 1 08/14/2023 Active Gabapentin 600 MG Oral Tablet (Neurontin)Indicat ions:Paresthesia Take 1 Tablet by mouth at bedtime. 90 Tablet 1 08/14/2023 Active documented as of this encounter (statuses as of 11/10/2023) Active Problems Problem Noted Date Diagnosed Date Alcohol abuse, in remission 10/22/2023 Gastroesophageal reflux disease 02/12/2023 Gout 02/12/2023 DDD (degenerative disc disease), cervical 2022 Acute pain of right shoulder 02/06/2023 Severe episode of recurrent major depressive disorder, without psychotic features 12/14/2020 PTSD (post-traumatic stress disorder) 12/14/2020 Anxiety 12/14/2020 documented as of this encounter (statuses as of 11/10/2023) Resolved Problems Problem Noted Date Diagnosed Date Resolved Date Opioid abuse, in remission 12/14/2020 0 02/20/2022 documented as of this encounter (statuses as of 11/10/2023) Immunizations Name Administration Dates Next Due TDAP (age 10 and older)(Boostrix) 09/30/2021 documented as of this encounter Social History Tobacco Use Types Packs/Day Years Used Date Smoking Tobacco: Every Day Cigarettes 1 22 Smokeless Tobacco: Never Comments:09/29/20 currently smoking 10 cig/day Alcohol Use Standard Drinks/Week Comments Not Currently 0 (1 standard drink = 0.6 oz pur e alcohol) PHQ-2 Answer Date Recorded PHQ Adult Total Score 1 02/06/2023 Hunger Vital Sign Answer Date Recorded Within the past 12 months, y ou worried that your food would run out before you got the money to buy more. Never true 02/07/20 23 Within the past 12 months, t he food you bought just didn't last and you didn't have money to get more. Never true 02/06/2023 Sex and Gender Information Value Date Recorded Sex Assigned at Male 02/19/2022 11:36 PM EDT Gender Identity Male 02/19/2022 11:36 PM EDT Sexual Orientation Straight 02/19/2022 11 :36 PM EDT Job Start Date Occupation Industry Not on file Not on file Not on file documented as of this encounter Plan of Treatment Upcoming Encounters Date Type Department Care Team (Late st Contact Info) Description 12/13/2023 8:15 AM EDT Office Visit Orthopaedics [facility] [address] [phone] Jacobo Kumar MD [address] [place] [address] Health Maintenance Due Date Last Done Comments Lipid Panel 1981 Pneumococcal Vaccine: Pediat rics (0 to 5 Years) and At-Risk Patients (6 to 64 Years) (1 of 2 - PCV) 1987 Hepatitis B (1 of 3 - 19+ 3- dose series) 2000 COVID-19 Vaccine ( - 2022-2 4 season) 2023 Influenza Vaccine (FLU shot) (#1) 2023 Depression Screening 02/07/2024 02/06/2023 DTaP,Tdap,and Td Vaccines (2 - Td or Tdap) 09/30/2031 09/30/2021 GARDASIL-HPV IMMUNIZATION SERIES Aged Out No longer eligible based on patient's age to complete this topic MENINGOCOCCAL (MENACTRA/MENVEO) Aged Out No longer eligible based on patient's age to complete this topic documented as of this encounter Medical Devices Not on filedocumented as of this encounter Care Teams Pattern Stamper Relationship Specialty Start Date End Date Nayeli Gutierrez MD [address] [place] [address] PCP - General Family Medicine 12/14/20 documented as of this encounter
--- OUTSIDE RECORDS SUMMARY | 2024-04-03 05:38 | External Medical Summary | Summary of Care ---
Author Name Unknown Organization [facility] Address [address] [place] [address] Phone [phone] Care Team Providers Care Foundry Operator Name Role Phone Nayeli Gutierrez MD Primary Care Provid er Encounter Details Date Type Department Care Team (Late st Contact Info) Description 11/19/2023 Population Health External Data Unspecified Department Allergies No known active allergiesdocumented as of this encounter (statuses as of 11/19/2023) Medications Medication Sig Dispensed Refills Start Date [...] as of this encounter (statuses as of 11/19/2023) Active Problems Problem Noted Date Diagnosed Date Alcohol abuse, in remission 10/22/2023 Gastroesophageal reflux disease 02/12/2023 Gout 02/12/2023 DDD (degenerative disc disease), cervical 2022 Acute pain of right shoulder 02/06/2023 Severe episode of recurrent major depressive disorder, without psychotic features 12/14/2020 PTSD (post-traumatic stress disorder) 12/14/2020 Anxiety 12/14/2020 documented as of this encounter (statuses as of 11/19/2023) Resolved Problems Problem Noted Date Diagnosed Date Resolved Date Opioid abuse, in remission 12/14/2020 0 02/20/2022 documented as of this encounter (statuses as of 11/19/2023) Immunizations Name Administration Dates Next Due TDAP [...] AM EDT Office Visit Orthopaedics [facility] [address] [phone] Jacobo Kumar MD [address] [place] [address] Health Maintenance Due Date Last Done Comments [...] filedocumented as of this encounter Care Teams Foundry Operator Relationship Specialty Start Date End Date Nayeli Gutierrez MD [address] [place] [address] PCP - General Family Medicine 12/14/20 documented as of this encounter
--- OUTSIDE RECORDS SUMMARY | 2024-04-03 05:38 | External Medical Summary | Summary of Care ---
Author Name Unknown Organization [facility] Address [address] [place] [address] Phone [phone] Care Team Providers Care Charge Operator Name Role Phone Nayeli Gutierrez MD [...] Visit Orthopaedics [facility] [address] [phone] Jacobo Kumar MD [address] [place] [address] Health Maintenance Due Date Last Done Comments [...] filedocumented as of this encounter Care Teams Charge Operator Relationship Specialty Start Date End Date Nayeli Gutierrez MD [address] [place] [address] PCP - General Family Medicine 12/14/20 documented as of this encounter
--- OUTSIDE RECORDS SUMMARY | 2024-04-03 05:38 | External Medical Summary ---
Author Name Unknown Address Unknown Organization R4:[facility] [address] [address] Laboratory Report Ordering Provider Test Date Status GIO ESCOTO 11/15/2023 12:13:00 Final Observation Date Value Abnormality Reference (Units ) Status WBC 11/15/2023 12:40 15.6 Above high normal 4.0-9 .1 (X10E+09/L) Final PERIPHERAL SMEAR REVIEWED RBC 11/15/2023 12:40 3.47 Below low normal 4.6-6.1 (X10E+12/L) Final Hemoglobin 11/15/2023 12:40 11.2 Below low normal 13.7-17.5 (g/dL) Final Hematocrit 11/15/2023 12:40 33.4 Below low normal 40-51 (%) Final MCV 11/15/2023 12:40 96.3 Above high normal 79-92 (fL) Final MCH 11/15/2023 12:40 32.3 Above high normal 26.0-32.0 (pg) Final MCHC 11/15/2023 12:40 33.5 32-37 (g/dL) Final Platelets 11/15/2023 12:40 267 150-330 (X10E +09/L) Final RDW 11/15/2023 12:40 13.7 11.6-14.4 (%) Final Neutrophils 11/15/2023 12:40 74.5 Above high normal 34.0-67.9 (%) Final Lymphocytes 11/15/2023 12:40 15.5 Below low normal 21.8-53.1 (%) Final Monocytes 11/15/2023 12:40 8.6 5.3-12.2 (%) Final Eosinophils 11/15/2023 12:40 0.8 0.8-7.0 (%) Final Basophils 11/15/2023 12:40 0.6 0.1-1.2 (%) F inal Absolute Neutrophils 11/15/2023 12:40 11.60 Abo ve high normal 1.8-5.4 (X10E+09/L) Final Absolute Lymphocytes 11/15/2023 12:40 2.40 1. 3-3.6 (X10E+09/L) Final Absolute Monocytes 11/15/2023 12:40 1.30 Above high normal 0.3-0.8 (X10E+09/L) Final Absolute Eosinophils 11/15/2023 12:40 0.10 0. 0-0.5 (X10E+09/L) Final Absolute Basophils 11/15/2023 12:40 0.10 0.0- 0.1 (X10E+09/L) Final Performing Location [facility] [address] [address]
--- OUTSIDE RECORDS SUMMARY | 2024-04-03 05:38 | External Medical Summary | Summary of Care ---
Author Name Unknown Organization [facility] Address [address] [place] [address] Phone [phone] Care Team Providers Care Wall Attendant Name Role Phone Brina Barnett MD Primary Care Provid er Reason for Visit * Reason Comments eRx-Medication Refill Encounter Details Date Type Department Care Team (Late st Contact Info) Description 02/13/2024 Refill [facility] [address] [place] [address] Brina Barnett MD [address] [place] [address] Paresthesia Allergies No known active allergiesdocumented as of this encounter (statuses as of 02/15/2024) Medications Medication Sig Dispensed Refills Start Date End Date Status Omeprazole 10 MG Oral Capsule Delayed Release (Prilosec) Take 1 Capsule by mouth in the morning. Active Multivitamin Men Oral Tablet Take by mouth. Active Lidocaine 5 % External Patch (Lidoderm) apply 1 patch TO THE AFFECTED AREA DAILY. LEAVE ON MOST PAINFUL A... (REFER TO PRESCRIPTION NOTES). 01/12/2023 Active Colchicine 0.6 MG Oral TabletIndication s:Gouty arthropathy Take twice a day while in a gout flare up - stop 3 days after pain has resolved. 60 Tablet 5 02/14/2023 Active Additional Information Patient not taking.Reported on 08/14/2023 Allopurinol 100 MG Oral Tablet (Zyloprim)Indica tions:Chronic gout without tophus, unspecified cause, unspecified site Take 1 Tablet by mouth in the morning. 30 Tablet 11 08/14/2023 Active Gabapentin 600 MG Oral Tablet (Neurontin)Indic ations:Paresthes ia Take 1 Tablet by mouth at bedtime. 90 Tablet 1 08/14/2023 Active Gabapentin 100 MG Oral Capsule (Neurontin)Indic ations:Paresthes ia Take 1 capsule by mouth in the morning 90 Capsule 3 02/15/2024 Active Gabapentin 100 MG Oral Capsule (Neurontin)Indic ations:Paresthes ia Take 1 Capsule by mouth in the morning. 90 Capsule 1 08/14/2023 02/15/20 24 Discontinued documented as of this encounter (statuses as of 02/15/2024) Active Problems Problem Noted Date Diagnosed Date Alcohol abuse, in remission 10/22/2023 Gastroesophageal reflux disease 02/12/2023 Gout 02/12/2023 DDD (degenerative disc disease), cervical 2022 Acute pain of right shoulder 02/06/2023 Severe episode of recurrent major depressive disorder, without psychotic features 12/14/2020 PTSD (post-traumatic stress disorder) 12/14/2020 Anxiety 12/14/2020 documented as of this encounter (statuses as of 02/15/2024) Resolved Problems Problem Noted Date Diagnosed Date Resolved Date Opioid abuse, in remission 12/14/2020 0 02/20/2022 documented as of this encounter (statuses as of 02/15/2024) Immunizations Name Administration Dates Next Due TDAP [...] Answer Date Recorded PHQ Adult Total Score 8 01/01/2024 Hunger Vital Sign Answer Date Recorded Within the past 12 months, y ou worried that your food would run out before you got the money to buy more. Never true 11/19/19 24 Within the past 12 months, t he food you bought just didn't last and you didn't have money to get more. Never true 11/19/2023 Sex and Gender Information Value Date Recorded Sex Assigned at Male 02/19/2022 11:36 PM EDT Gender Identity Male 02/19/2022 11:36 PM EDT Sexual Orientation Straight 02/19/2022 11 :36 PM EDT Job Start Date Occupation Industry Not on file Not on file Not on file documented as of this encounter Miscellaneous Notes * Telephone Encounter - Brina Barnett MD - 02/15/2024 12:37 PM EDT Signed Prescriptions: Disp Refills Gabapentin 100 MG Oral Capsule (Neurontin) 90 Cap*3 Sig: Take 1 capsule by mouth in the morning Authorizing Provider: BRINA BARNETT * Telephone Encounter - Lam Martin RN - 02/13/2024 2:53 PM EDTPending Prescriptions: Disp Refills Gabapentin 100 MG Oral Capsule (Neurontin) 90 Cap*3 Sig: Take 1 capsule by mouth in the morning * Telephone Encounter - Lam Martin RN - 02/13/2024 2:52 PM EDT Images from the original note were not included. Refill routed to provider. Provider to address: med Reason for Call: eRx-Medication Refill Contact: My Katarzyna Contact Type: Medication Provider In-Basket: Yes Outcome: See above Face to face time spent with Patient (minutes): 0 Total Time including non face to face (minutes): 10 Lam Martin TRANSIT MIXER OPERATOR [employer] Primary Care Nurse Coordinator [facility] (Helping out) * Telephone Encounter - Teena Seymour - 02/13/2024 1:59 PM EDTPending Prescriptions: Disp Refills Gabapentin 100 MG Oral Capsule 90 Cap*0 Sig: Take 1 Capsule by mouth in the morning. documented in this encounter Plan of Treatment Health Maintenance Due Date Last Done Comments Lipid Panel 1981 Pneumococcal Vaccine: Pediat rics (0 to 5 Years) and At-Risk Patients (6 to 64 Years) (1 of 2 - PCV) 1987 Hepatitis B (1 of 3 - 19+ 3- dose series) 2000 COVID-19 Vaccine (2022-2 4 season) 2023 Influenza Vaccine (FLU shot) (Season Ended) 2024 DTaP,Tdap,and Td Vaccines (2 - Td or Tdap) 09/30/2031 09/30/2021 GARDASIL-HPV IMMUNIZATION SERIES Aged Out No longer eligible based on patient's age to complete this topic MENINGOCOCCAL (MENACTRA/MENVEO) Aged Out No longer eligible based on patient's age to complete this topic documented as of this encounter Medical Devices Not on filedocumented as of this encounter Visit Diagnoses Diagnosis Paresthesia Disturbance of skin sensation documented in this encounter Care Teams Wall Attendant Relationship Specialty Start Date End Date Brina Barnett MD [address], [place] [phone] PCP - General Family Medicine 12/14/20 documented as of this encounter
--- OUTSIDE RECORDS SUMMARY | 2024-04-03 05:38 | External Medical Summary ---
Author Name Unknown Address Unknown Organization R4H:[facility] [address] [address] Laboratory Report Ordering Provider Test Date Status GIO ESCOTO 11/15/2023 12:13:00 Final Observation Date Value Abnormality Reference (Units ) Status Glucose 11/15/2023 13:00 107 Above high normal 70-99 (mg/dL) Final BUN 11/15/2023 13:00 11 7-18 (mg/dL) Final Creatinine 11/15/2023 13:00 0.67 0.60-1.30 (m g/dL) Final eGFR 11/15/2023 13:00 120 >59 (mL/min/1 .73m2) Final eGFR = 142 X [min(Scr/k,1)]* *a [max(Scr/k,1)-1.200x0.9938age X 1.012 [if female] Where Scr is serum creatinine; k is 0.7 for females and 0.9 males; a is -0.241 for females and -0.302 for males; min indicates the minimum of Scr/k or 1, max indicates the maximum of Scr/k or 1 Sodium 11/15/2023 13:00 134 Below low normal 136-14 5 (mmol/L) Final Potassium 11/15/2023 13:00 3.2 Below low normal 3.6-5. 0 (mmol/L) Final Chloride 11/15/2023 13:00 97 Below low normal 101-11 1 (mmol/L) Final CO2 11/15/2023 13:00 24 21-31 (mmol/L ) Final Anion Gap 11/15/2023 13:00 16 6-16 (mmol/L) Final Calcium 11/15/2023 13:00 9.1 8.4-10.5 (mg/ dL) Final Total Protein 11/15/2023 13:00 8.1 6.0-8.3 ( g/dL) Final Albumin 11/15/2023 13:00 4.3 3.2-5.5 (g/dL ) Final Bilirubin, Total 11/15/2023 13:00 1.3 Above high tita l 0.2-1.0 (mg/dL) Final AST 11/15/2023 13:00 19 10-42 (U/L) F inal ALT 11/15/2023 13:00 15 10-60 (U/L) F inal Alkaline Phosphatase 11/15/2023 13:00 78 42 -121 (U/L) Final Performing Location [facility] [address] [address]
--- OUTSIDE RECORDS SUMMARY | 2024-04-03 05:38 | External Medical Summary | Summary of Care ---
Author Name Unknown Organization [facility] Address [address] [place] [address] Phone [phone] Care Team Providers Care Emr Trainer Name Role Phone Nayeli Gutierrez MD Primary [...] Visit Orthopaedics [place] Guido [address] [phone] Jacobo Kumar MD [address] [place] [address] Health Maintenance Due Date Last Done Comments [...] filedocumented as of this encounter Care Teams Emr Trainer Relationship Specialty Start Date End Date Nayeli Gutierrez MD [address] [place] [address] PCP - General Family Medicine 12/14/20 documented as of this encounter
--- OUTSIDE RECORDS SUMMARY | 2024-04-03 05:38 | External Medical Summary | Summary of Care ---
Author Name Unknown Organization [facility] Address [address] [place] [address] Phone [phone] Care Team Providers Care Landcare Facilitator Name Role Phone Nayeli Gutierrez MD Primary [...] Visit Orthopaedics [place] Guido [address] [phone] Jacobo Kumar MD [address] [place] [address] Health Maintenance Due Date Last Done Comments [...] filedocumented as of this encounter Care Teams Landcare Facilitator Relationship Specialty Start Date End Date Nayeli Gutierrez MD [address] [place] [address] PCP - General Family Medicine 12/14/20 documented as of this encounter
--- OUTSIDE RECORDS SUMMARY | 2024-04-03 05:38 | External Medical Summary ---
Author Name Unknown Address Unknown Organization R4LH:[facility] [address] [address] Laboratory Report Ordering Provider Test Date Status LEXIEJOJOYVETTE ANDERSATAERNESTO 11/15/2023 12:13:00 Final Observation Date Value Abnormality Reference (Units ) Status Sedimentation Rate 11/15/2023 12:47 42 Above high nor mal <15 (mm/h) Final Results and reference ranges are slightly higher due to new methodology Performing Location [facility] [address] [address]
--- OUTSIDE RECORDS SUMMARY | 2024-04-03 05:38 | External Medical Summary ---
Author Name Unknown Address Unknown Organization R1WR:[facility] [address] [place] [address] Laboratory Report Ordering Provider Test Date Status GIO ESCOTO 11/15/2023 12:13:00 Final Observation Date Value Abnormality Reference (Units ) Status Uric Acid 11/15/2023 16:58 8.9 3.7-9.2 (mg/d L) Final Performing Location [facility] [address] [place] [address]
--- OUTSIDE RECORDS SUMMARY | 2024-04-03 05:39 | External Medical Summary | Summary of Care ---
Author Name Unknown Organization [facility] Address [address] [place] [address] Phone [phone] Care Team Providers Care School Library Media Specialist Name Role Phone Nayeli Gutierrez MD Primary Care Provid er Reason for Referral * Evaluate & Treat - Unlimited Visits (Within 10 days (routine)) - Authorized Specialty Diagnoses / Procedures Referred By Conttramaine gerardo Referred To Contact Orthopaedic Surgery / Orthopedics Diagnoses Carpal tunnel syndrome of right wrist Dilshad Payan PA-C [facility] [place] [address] Jacobo Kumar MD [address] [place] [address] Referral ID Status Reason Start Date Expiration Date Visits Requested Visits Authorized [id number] Authorized Specialty Services Required 11/06/2023 999 999 Question Answer Referral Priority Within 10 days (routine) Where should this appointment be scheduled? [facility] What body part is the patient being seen for? Hand What condition is the patient being seen for? Weakness/Numbness/Tingling Reason for Visit * Reason Comments Test Results Encounter Details Date Type Department Care Team ([facility] st Contact Info) Description 11/06/2023 1:10 PM EST Office Visit Orthopaedics [address] [place] [address] Oscar Jimenez MD [facility] [place] [address] Carpal tunnel syndrome of right wrist* Allergies No known active allergiesdocumented as of this encounter (statuses as of 11/06/2023) Medications Medication Sig Dispensed Refills Start Date [...] as of this encounter (statuses as of 11/06/2023) Active Problems Problem Noted Date Diagnosed Date Alcohol abuse, in remission 10/22/2023 Gastroesophageal reflux disease 02/12/2023 Gout 02/12/2023 DDD (degenerative disc disease), cervical 2022 Acute pain of right shoulder 02/06/2023 Severe episode of recurrent major depressive disorder, without psychotic features 12/14/2020 PTSD (post-traumatic stress disorder) 12/14/2020 Anxiety 12/14/2020 documented as of this encounter (statuses as of 11/06/2023) Resolved Problems Problem Noted Date Diagnosed Date Resolved Date Opioid abuse, in remission 12/14/2020 0 02/20/2022 documented as of this encounter (statuses as of 11/06/2023) Immunizations Name Administration Dates Next Due TDAP [...] on file documented as of this encounter Progress Notes * Oscar Jimenez MD - 11/06/2023 1:22 PM EST I have reviewed the advanced practitioner's documentation on the date of service referenced in note, and I agree with, and take responsibility for the plan of care. * Dilshad Payan PA-C - 11/06/2023 1:14 PM EST CHIEF COMPLAINT: Right hand pain, numbness, and tingling Consultation was requested by Self for same. HISTORY OF PRESENT ILLNESS: Joaquim Reyes is a 43 year old male. Location: right Symptoms: numbness - fingers: thumb, index, long, and ring, tingling - fingers: thumb, index, long,and ring, pain - fingers # 1-4; pain severity: 8, and wakes patient at night Duration: 2 months Hand Dominance: Right EMG: yes, done 09/24/2023; positive for "evidence for a moderate prolongation right median distal sensory latencies and low amplitude right ulnar and radial sensory latencies consistent with a carpal tunnel syndrome and a superimposed sensory neuropathy." Previous Treatment: has tried OTC night splints, which were unhelpful and has not had an injection;also uses tylenol and ibuprofen without relief REVIEW OF SYSTEMS: Constitutional:Normal Skin: Negative HEENT: Normal Cardiovascular: Normal Pulmonary: Normal Gastrointestinal: Normal Genitourinary: Normal Endocrine/Metabolic: Normal Neurologic: Normal Musculoskeletal: Normal and gout history Hematologic: Normal Diabetes Mellitus: no Rheumatoid Arthritis: no Neck Pain: No Sleep Apnea: no No past medical history on file. No past surgical history on file. Current Outpatient Medications Medication Sig Dispense Refill Omeprazole 10 MG Oral Capsule Delayed Release (Prilosec) Take 1 Capsule by mouth in the morning. (Patient not taking: Reported on 08/14/2023) Multivitamin Men Oral Tablet Take by mouth. (Patient not taking: Reported on 02/20/2022) Lidocaine 5 % External Patch (Lidoderm) apply 1 patch TO THE AFFECTED AREA DAILY. LEAVE ON MOST PAINFUL A... (REFER TO PRESCRIPTION NOTES). (Patient not taking: Reported on 08/14/2023) Colchicine 0.6 MG Oral Tablet Take twice a day while in a gout flare up - stop 3 days after pain has resolved. (Patient not taking: Reported on 08/14/2023) 60 Tablet 5 Allopurinol 100 MG Oral Tablet (Zyloprim) Take 1 Tablet by mouth in the morning. 30 Tablet 11 Gabapentin 100 MG Oral Capsule (Neurontin) Take 1 Capsule by mouth in the morning. 90 Capsule 1 Gabapentin 600 MG Oral Tablet (Neurontin) Take 1 Tablet by mouth at bedtime. 90 Tablet 1 No current facility-administered medications for this visit. Review of patient's allergies indicates: No Known Allergies Social History Tobacco Use Smoking status: Every Day Current packs/day: 1.00 Average packs/day: 1 pack/day for 22.0 years (22.0 ttl pk-yrs) Types: Cigarettes Smokeless tobacco: Never Tobacco comments: 09/29/20 currently smoking 10 cig/day Substance Use Topics Alcohol use: Not Currently Drug use: Never Family History Problem Relation Age of Onset Other (sleep apnea) Father No Known Problems Sister No Known Problems Brother HAND EXAM There were no vitals filed for this visit. General: alert & oriented x 3, pleasant, and cooperative HEENT: hearing intact and sclera anicteric Neck: no masses/good motion Skin: no pertinent skin lesions, openings, rashes, ulcers, no edema, and no erythema PV: good peripheral pulses to b/L UE Elbow: ROM: full Hand: ROM: full ROM to wrist/fingers Right CTS: (+) Carpal Tunnel Compression test and (+) numbness in median nerve distribution Neuro: motor/sensory grossly intact b/L UE MS: 5/5 motor strength to bilateral UE, normal symmetry and tone. Assessment: Right carpal tunnel syndrome Plan: Patient evaluated and discussed with Dr. Jimenez Discussed exam, imaging findings, diagnosis, and treatment options with patient Carpal tunnel night splint fitted today Referral placed to hand surgery team to discuss carpal tunnel release Dilshad Payan PA-C 11/06/2023 1:14 PM Orthopa[address]ics [address] [phone] documented in this encounter Nursing Notes * Marifer Perez LPN - 11/06/2023 1:11 PM EST results documented in this encounter Plan of Treatment Upcoming Encounters Date Type Department Care Team ([facility] Contact Info) Description 12/13/2023 8:15 AM EDT Office Visit Orthopaedics Jessica Guido [address] [place] [phone] Jacobo Kumar MD [address] [place] [phone] Scheduled Referrals Name Type Priority Associated Diagnoses Order Schedule ORTHOPAEDICS REFERRAL OP Referral Within 10 days (routine) Carpal tunnel syndrome of right wrist Ordered: 11/06/2023 Health Maintenance Due Date Last Done Comments [...] as of this encounter Visit Diagnoses Diagnosis Carpal tunnel syndrome of right wrist- Primary Carpal tunnel syndrome documented in this encounter Care Teams School Library Media Specialist Relationship Specialty Start Date End Date Nayeli Gutierrez MD [address] [place] [address] PCP - General Family Medicine 12/14/20 documented as of this encounter
--- OUTSIDE RECORDS SUMMARY | 2024-04-03 05:39 | External Medical Summary | Summary of Care ---
Author Name Unknown Organization [facility] Address [address] [place] [address] Phone [phone] Care Team Providers Care Customer Sales Advisor Name Role Phone Nayeli Gutierrez MD Primary Care Provid er Encounter Details Date Type Department Care Team (Late st Contact Info) Description 11/02/2023 Population Health External Data Unspecified Department Allergies No known active allergiesdocumented as of this encounter (statuses as of 11/02/2023) Medications Medication Sig Dispensed Refills Start Date [...] as of this encounter (statuses as of 11/02/2023) Active Problems Problem Noted Date Diagnosed Date Alcohol abuse, in remission 10/22/2023 Gastroesophageal reflux disease 02/12/2023 Gout 02/12/2023 DDD (degenerative disc disease), cervical 2022 Acute pain of right shoulder 02/06/2023 Severe episode of recurrent major depressive disorder, without psychotic features 12/14/2020 PTSD (post-traumatic stress disorder) 12/14/2020 Anxiety 12/14/2020 documented as of this encounter (statuses as of 11/02/2023) Resolved Problems Problem Noted Date Diagnosed Date Resolved Date Opioid abuse, in remission 12/14/2020 0 02/20/2022 documented as of this encounter (statuses as of 11/02/2023) Immunizations Name Administration Dates Next Due TDAP [...] Upcoming Encounters Date Type Department Care Team ([facility] Contact Info) Description 11/06/2023 1:10 PM EST Office Visit Orthopaedics [facility] [address] [place] [phone] Oscar Jimenez MD [address] [place], [place] [phone] Health Maintenance Due Date Last Done Comments [...] filedocumented as of this encounter Care Teams Customer Sales Advisor Relationship Specialty Start Date End Date Nayeli Gutierrez MD [address] [place] [address] PCP - General Family Medicine 12/14/20 documented as of this encounter
--- OUTSIDE RECORDS SUMMARY | 2024-04-03 05:39 | External Medical Summary | Summary of Care ---
Author Name Unknown Organization [facility] Address [address] [place] [address] Phone [phone] Care Team Providers Care Insurance Coordinator Name Role Phone Nayeli Gutierrez MD Primary [...] Visit Orthopaedics [place] Guido [address] [phone] Jacobo Kumar MD [address] [place] [address] Health Maintenance Due Date Last Done Comments [...] filedocumented as of this encounter Care Teams Insurance Coordinator Relationship Specialty Start Date End Date Nayeli Gutierrez MD [address] [place] [address] PCP - General Family Medicine 12/14/20 documented as of this encounter
--- OUTSIDE RECORDS SUMMARY | 2024-04-03 05:39 | External Medical Summary | Summary of Care ---
Author Name Unknown Organization [facility] Address [address] [place] [address] Phone [phone] Care Team Providers Care Educational Program Assistant Name Role Phone Nayeli Gutierrez MD Primary Care Provid er Reason for Visit * Reason Onset Date Comments Appointment 10/15/2023 Encounter Details Date Type Department Care Team ([facility] st Contact Info) Description 10/15/2023 Telephone Orthopaedics [address] [place] [address] Dilshad Payan PA-C [address] [place] [address] Appointment Allergies No known active allergiesdocumented as of this encounter (statuses as of 10/16/2023) Medications Medication Sig Dispensed Refills Start Date [...] as of this encounter (statuses as of 10/16/2023) Active Problems Problem Noted Date Diagnosed Date Gastroesophageal reflux disease 02/12/2023 Gout 02/12/2023 DDD (degenerative disc disease), cervical 2022 Acute pain of right shoulder 02/06/2023 Severe episode of recurrent major depressive disorder, without psychotic features 12/14/2020 PTSD (post-traumatic stress disorder) 12/14/2020 Anxiety 12/14/2020 documented as of this encounter (statuses as of 10/16/2023) Resolved Problems Problem Noted Date Diagnosed Date Resolved Date Opioid abuse, in remission 12/14/2020 0 02/20/2022 documented as of this encounter (statuses as of 10/16/2023) Immunizations Name Administration Dates Next Due TDAP [...] encounter Miscellaneous Notes * Telephone Encounter - Courtney Cabrera OSA - 10/16/2023 12:53 PM EST Spoke to pt. Pt scheduled 11/06/[address] lozoya at [place] office. * Telephone Encounter - Jackie Key OSA - 10/15/2023 2:53 PM EST Patient had to cancel his appointment on 10/02 with Dilshad Payan for a follow up after EMG but no appointment available. Patient still needs to be seen as soon as possible. Please further assist. documented in this encounter Plan of Treatment Upcoming Encounters Date Type Department Care Team ([facility] st Contact Info) Description 11/06/2023 1:10 PM EST Office Visit Orthopaedics [address] [place] [address] Oscar Lozoya MD [address] [place] [address] Health Maintenance Due Date Last Done Comments Hepatitis B (1 of 3 - 3-dose series) 1981 Lipid Panel 1981 COVID-19 Vaccine (#1) 05/04/1982 Pneumococcal Vaccine: Pediat rics (0 to 5 Years) and At-Risk Patients (6 to 64 Years) (1 - PCV) 1987 Influenza Vaccine (FLU shot) (#1) 2023 Depression [...] filedocumented as of this encounter Care Teams Educational Program Assistant Relationship Specialty Start Date End Date Nayeli Gutierrez MD [address] [address] PCP - General Family Medicine 12/14/20 documented as of this encounter
--- OUTSIDE RECORDS SUMMARY | 2024-04-03 05:39 | External Medical Summary | Summary of Care ---
Author Name Unknown Organization [facility] Address [address] [place] [address] Phone [phone] Care Team Providers Care Rn Rehabilitation Name Role Phone Nayeli Gutierrez MD Primary Care Provid er Reason for Visit * Reason Onset Date Comments Appointment 10/15/2023 Encounter Details Date Type Department Care Team ([facility] st Contact Info) Description 10/15/2023 Telephone Orthopaedics [address] [place] [address] Dilshad Payan PA-C [address] [place] [address] Appointment Allergies No known active [...] Pt scheduled 11/06/[address] lozoya at [place] [facility]. * Telephone Encounter - Jackie Key OSA - 10/15/2023 2:53 PM EST Patient had to cancel his appointment on 10/02 with Dilshad Payan for a follow up after EMG but no appointment available. Patient still needs to be seen as soon as possible. Please further assist. documented in this encounter Plan of Treatment Upcoming Encounters Date Type Department Care Team ([facility] st Contact Info) Description 11/06/2023 1:10 PM EST Office Visit Orthopaedics [address] [place] [address] Oscar Lozoya MD [address] [place] [address] Health Maintenance Due Date Last Done [...] filedocumented as of this encounter Care Teams Rn Rehabilitation Relationship Specialty Start Date End Date Nayeli Gutierrez MD [address] [address] PCP - General Family Medicine 12/14/20 documented as of this encounter
--- OUTSIDE RECORDS SUMMARY | 2024-04-03 05:39 | External Medical Summary | Summary of Care ---
Author Name Unknown Organization [facility] Address [address] [place] [address] Phone [phone] Care Team Providers Care Word Processing Machine Operator Name Role Phone Nayeli Gutierrez MD [...] Visit Orthopaedics [place] Guido [address] [phone] Jacobo Kumar MD [address] [place] [address] Health Maintenance Due Date Last Done Comments [...] filedocumented as of this encounter Care Teams Word Processing Machine Operator Relationship Specialty Start Date End Date Nayeli Gutierrez MD [address] [place] [address] PCP - General Family Medicine 12/14/20 documented as of this encounter
[2024-04-03 06:14] LABS: Amphetamines+Metham, Urine Neg (Neg); Barbiturates, Urine Neg (Neg); Benzodiazepine, Urine Neg (Neg); Cocaine, Urine Neg (Neg); Fentanyl, Urine Neg (Neg); MDMA (Ecstacy), Urine Neg (Neg); Marijuana, Urine Pos (Neg); Methadone, Urine Neg (Neg); Opiate, Urine Neg (Neg); Phencyclidine, Urine Neg (Neg)
[2024-04-03] MEDS: MULTIVITAMIN TAB PO SCH (07:42)
[2024-04-03] MEDS: ENOXAPARIN INJ 40 MG/0.4 ML SYR SQ SCH (07:42)
[2024-04-03] MEDS: GABAPENTIN 100 MG CAP PO SCH (07:42)
[2024-04-03] MEDS: NICOTINE 21 MG/24 HR TDSY TD SCH (07:42)
[2024-04-03] MEDS: FOLIC ACID 1 MG TAB PO SCH (07:42)
[2024-04-03] MEDS: THIAMINE HCL 100 MG TAB PO SCH (07:43)
[2024-04-03 07:45] LABS: Estimated Average Glucose 117 mg/dl; Hemoglobin A1C 5.7 % (4.5-5.6)
--- NOTE | 2024-04-03 08:54 | Electrocardiogram Report ---
Test Reason : Blood Pressure : / mmHG Vent. Rate : 117 BPM Atrial Rate : 117 BPM P-R Int : 152 ms QRS Dur : 070 ms QT Int : 310 ms P-R-T Axes : 052 010 009 degrees QTc Int : 432 ms Sinus tachycardia Otherwise normal ECG When compared with ECG of 13-JAN-2023 07:19, Vent. rate has increased BY 41 BPM Confirmed by Joaquim Perez ([id number]) on 04/03/2024 8:54:21 AM Referred By: REFERRED SELF Confirmed By:Joaquim Perez
[2024-04-03] MEDS ORDERED: ENOXAPARIN INJ 40 MG/0.4 ML SYR SQ SCH (09:00)
[2024-04-03] MEDS: oxyCODONE HCL IR 5 MG TAB (IMMEDIATE RELEASE) PO PRN (11:32)
[2024-04-03 13:13] LABS: Adenovirus F 40/41 PCR Not Detected (NotDetected); Astrovirus PCR Not Detected (NotDetected); Campylobacter PCR Not Detected (NotDetected); Cryptosporidium PCR Not Detected (NotDetected); Cyclospora cayetanensis PCR Not Detected (NotDetected); Entamoeba histolytica PCR Not Detected (NotDetected); Enteroaggregative E.coli(EAEC) Not Detected (NotDetected); Enteropathogenic E.coli (EPEC) Not Detected (NotDetected); Enterotoxigenic E.coli (ETEC) Not Detected (NotDetected); Giardia lamblia PCR Not Detected (NotDetected); Norovirus GI/GII PCR Not Detected (NotDetected); Plesiomonas shigelloides PCR Not Detected (NotDetected); Rotavirus A PCR Not Detected (NotDetected); Salmonella PCR Not Detected (NotDetected); Sapovirus PCR Not Detected (NotDetected); Shiga-like Toxin E.coli (STEC) Not Detected (NotDetected); Shigella/Enteroinvasive E.coli Not Detected (NotDetected); Vibrio cholerae PCR Not Detected (NotDetected); Vibrio species PCR Not Detected (NotDetected); Yersinia enterocolitica PCR Not Detected (NotDetected)
--- NOTE | 2024-04-03 14:28 | Hospitalist Progress Note ---
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 He also reports some nausea, denies vomiting. Denies abdominal pain. Denies chest pain shortness of breath or febrile illness. He reported snoring while sleeping. He is being managed for the following: SIRS positive Rule out sepsis At admission, WBC and pulse rate elevated, procalcitonin elevated, lactate WNL, no source of infection identified. At admission: Lyme screen negative, stool PCR negative, C. difficile negative, UA negative. Patient with no cough or febrile illness or abdominal pain or pain or burning with passing urine. Patient started on cefepime 04/03, continue for now, DC once blood culture negative for 48 hours. Follow blood culture 04/03. Closely monitor for any other signs and symptoms of infection. Alcohol intoxication: Admitting alc level 368.8 Risks of alcohol withdrawal Patient reports drinking 1 L of gin or radha daily along with 12 pack of beer. Last drink was 04/02/2024 AM. AWSS protocol, thiamine, folic acid, as needed Ativan, Librium taper. Telemetry monitoring. Likely will benefit from inpatient rehab. CM consulted. Bilateral shoulder pain: Admitting CT negative for acute fracture or pathology. Continue with pain management. 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 Admitting stool culture and C. difficile negative . Monitor replete electrolytes. Monitor for clinical improvements with improvement in nutrition/cessation of alcohol. If ongoing loose stools, consider GI consultation. Acute on chronic anemia: Baseline hemoglobin of around 13, admitting hemoglobin of 12.8 which dropped to 10.8 the following day. FOBT done in the ED negative. Likely acute anemia in the setting of excessive alcohol use with dilutional component unmasking the anemia after admission. Iron profile with adequate iron store, vitamin B12 and folate WNL. Repeat iron profile and vitamin B12/folate levels in about 2 to 3 months time. Expect to improve with cessation of alcohol use. Alcoholic hepatitis, likely good prognosis with normal PT level, LFT trending down. monitor. Possible LILIANA: sleep study as OP. Prediabetes: A1c 5.7, encouraged lifestyle modification/incorporation of exercise regimen. repeat A1c in 3 months. Other chronic medical conditions: Continue with/resume home meds as and when able. mood disorder, patient not suicidal, patient not on maintenance medications Hyperglycemia rule out DM history of substance abuse ongoing tobacco abuse, Nicotine patch. DVT prophylaxis. Lovenox subcu Full code Text document was generated using [employer] voice recognition software. It may contain grammatical or spelling errors. Kindly contact undersigned for clarification of any documentation item in question. Admission and Anticipated Discharge Date Admission Date: April 02, 2024 Subjective Patient was seen and examined at bedside. Patient was lying in bed, on room air, NAD, resting comfortably. Patient denies any fever, chills, recent flulike illness, sore throat, chest pain. Patient reports eating okay, reports some nausea, denies vomiting. 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 Denies abdominal pain. Physical Exam Physical Exam: GENERAL: Alert and oriented x3. NAD, on RA. HEENT: No pallor, no icterus. Pupils equal, round and reactive to light. Oral mucosa moist. NECK: No JVD, no neck masses. HEART: S1 and S2 heard. Regular rate and rhythm. tachycardia. No murmur, no gallop. RESPIRATORY SYSTEM: Normal AP diameter. No accessory muscle use. No wheezing, no crackles. ABDOMEN: Soft, bowel sounds present, nontender, no distention. CENTRAL NERVOUS SYSTEM: No facial droop. Speech is clear. Obeys simple commands. Moves extremities. EXTREMITIES: No edema, no erythema seen. Results & Data Results & Data Vital Signs (Past 12 Hours) Vital Signs Temp Pulse Pulse Resp BP Pulse Ox O2 Del Method 04/03/24 11:51 36.8 C 92 H 20 141/93 H 97 Room Air 04/03/24 08:04 82 04/03/24 07:42 36.5 C 84 16 130/88 98 Room Air 04/03/24 04:48 37.1 C 89 18 129/87 98 Room Air
[2024-04-03] MEDS: CYANOCOBALAMIN (B-12) 100 MCG TABLET PO SCH (15:25)
[2024-04-03] MEDS: GABAPENTIN 600 MG TAB PO SCH (20:32)
[2024-04-03] MEDS ORDERED: NICOTINE 21 MG/24 HR TDSY TD SCH (21:00)
[2024-04-03 22:50] LABS: A calco-baum cmplx NotReported Not Detected (NotDetected); Bact fragilis Not Reported Not Detected (NotDetected); Blood Culture Id Panel See PCR Comment (NotDetected); C auris Not Reported Not Detected (NotDetected); Calbicans Not Reported Not Detected (NotDetected); Candida glabrata Not Reported Not Detected (NotDetected); Candida krusei Not Reported Not Detected (NotDetected); Cneoformans/gatti Not Reported Not Detected (NotDetected); Cparapsilosis Not Reported Not Detected (NotDetected); E cloacae compx Not Reported Not Detected (NotDetected); Efaecalis Not Reported Not Detected (NotDetected); Efaecium Not Reported Not Detected (NotDetected); Enterobacterales Not Reported Not Detected (NotDetected); Escherichia coli Not Reported Not Detected (NotDetected); H influenzae Not Reported Not Detected (NotDetected); K aerogenes Not Reported Not Detected (NotDetected); Koxytoca Not Reported Not Detected (NotDetected); Kpneumoniae grp Not Reported Not Detected (NotDetected); Lmonocyt Not Reported Not Detected (NotDetected); N meningitidis Not Reported Not Detected (NotDetected); P aeruginosa Not Reported Not Detected (NotDetected); Proteus spp Not Reported Not Detected (NotDetected); Salmonella spp Not Reported Not Detected (NotDetected); Staph lugdunensis Not Reported Not Detected (NotDetected); Staph spp. Not Reported DETECTED (NotDetected); Staphaureus Not Reported Not Detected (NotDetected); Staphepi Not Reported DETECTED (NotDetected); Stenmaltophilia Not Reported Not Detected (NotDetected); Strep agal(GrpB) Not Reported Not Detected (NotDetected); Strep pneum Not Reported Not Detected (NotDetected); Strep pyog (GrpA) Not Reported Not Detected (NotDetected); Strep spp Not Reported Not Detected (NotDetected); mecAC Resistant Gene Not Detected (NotDetected)
[2024-04-03 22:57] LABS: Staphylococcus epidermidis DETECTED (NotDetected); Staphylococcus spp. DETECTED (NotDetected)
[2024-04-04] MEDS: oxyCODONE HCL IR 5 MG TAB (IMMEDIATE RELEASE) PO PRN (06:40)
[2024-04-04 07:17] LABS: Hematocrit (blood only) 32.1 % (42.0-52.0); Hemoglobin 10.8 g/dl (14.0-18.0); Mean Corpuscular Hemoglobin 32.5 pg (25.0-34.0); Mean Corpuscular Hgb Conc 33.6 g/dL (32.0-36.0); Mean Corpuscular Volume 96.7 fL (80.0-100.0); Mean Platelet Volume 10.2 fL (9.4-12.4); Platelet Count 181 K/uL (130-400); RDW Coefficient of Variation 15.8 % (11.5-14.5); RDW Standard Deviation 56.1 fL (36.4-46.3); Red Blood Count 3.32 M/uL (4.70-6.10); White Blood Count 8.74 K/ul (4.8-10.8)
[2024-04-04 07:41] LABS: BUN Creatinine Ratio 11.8 (10-20); Calcium 8.8 mg/dl (8.6-10.3); Creatinine Clr Calc Pharmacy 155.3 ml/min; Est GFR (African American) 136.5 ml/min; Est GFR (Non-African American) 117.8 ml/min; Phosphorus 5.6 mg/dl (2.5-4.9)
--- NOTE | 2024-04-04 15:20 | Hospitalist Progress Note ---
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 He also reports some nausea, denies vomiting. Denies abdominal pain. Denies chest pain shortness of breath or febrile illness. He reported snoring while sleeping. He is being managed for the following: SIRS positive Rule out sepsis 1 of 4 bottles positive blood cx: likely contaminant. repeat bl cx 04/04. Antibiotic until repeat cx are neg. At admission, WBC and pulse rate elevated, procalcitonin elevated, lactate WNL, no source of infection identified. At admission: Lyme screen negative, stool PCR negative, C. difficile negative, UA negative. Patient with no cough or febrile illness or abdominal pain or pain or burning with passing urine. Patient started on cefepime 04/03, continue for now, DC once blood culture negative for 48 hours. Follow blood culture 04/03. Closely monitor for any other signs and symptoms of infection. Alcohol intoxication: Admitting alc level 368.8 Risks of alcohol withdrawal Patient reports drinking 1 L of gin or radha daily along with 12 pack of beer. Last drink was 04/02/2024 AM. AWSS protocol, thiamine, folic acid, as needed Ativan, Librium taper. Telemetry monitoring. Likely will benefit from inpatient rehab. CM consulted. Bilateral shoulder pain: Admitting CT negative for acute fracture or pathology. Continue with pain management. 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 Admitting stool culture and C. difficile negative . reports improvement and pt is happy. Acute on chronic anemia: Baseline hemoglobin of around 13, admitting hemoglobin of 12.8 which dropped to 10.8 the following day. FOBT done in the ED negative. Likely acute anemia in the setting of excessive alcohol use with dilutional component unmasking the anemia after admission. Iron profile with adequate iron store, vitamin B12 and folate WNL. Repeat iron profile and vitamin B12/folate levels in about 2 to 3 months time. Expect to improve with cessation of alcohol use. Alcoholic hepatitis, likely good prognosis with normal PT level, LFT trending down. monitor. Possible LILIANA: sleep study as OP. Prediabetes: A1c 5.7, encouraged lifestyle modification/incorporation of exercise regimen. repeat A1c in 3 months. Other chronic medical conditions: Continue with/resume home meds as and when able. mood disorder, patient not suicidal, patient not on maintenance medications Hyperglycemia rule out DM history of substance abuse ongoing tobacco abuse, Nicotine patch. DVT prophylaxis. Lovenox subcu Full code Text document was generated using [employer] voice recognition software. It may contain grammatical or spelling errors. Kindly contact undersigned for clarification of any documentation item in question. Admission and Anticipated Discharge Date Admission Date: April 02, 2024 Subjective Patient was seen and examined at bedside. Patient was lying in bed, on room air, NAD, resting comfortably. Patient denies any fever, chills, recent flulike illness, sore throat, chest pain. Patient reports eating okay, reports bowels getting better/no more loose stools. Physical Exam Physical Exam: GENERAL: Alert and oriented x3. NAD, on RA. HEENT: No pallor, no icterus. Pupils equal, round and reactive to light. Oral mucosa moist. NECK: No JVD, no neck masses. HEART: S1 and S2 heard. Regular rate and rhythm. tachycardia. No murmur, no gallop. RESPIRATORY SYSTEM: Normal AP diameter. No accessory muscle use. No wheezing, no crackles. ABDOMEN: Soft, bowel sounds present, nontender, no distention. CENTRAL NERVOUS SYSTEM: No facial droop. Speech is clear. Obeys simple commands. Moves extremities. EXTREMITIES: No edema, no erythema seen. Results & Data Results & Data Vital Signs (Past 12 Hours) Vital Signs Temp Pulse Pulse Resp BP Pulse Ox O2 Del Method 04/04/24 14:31 107 H 04/04/24 11:27 37.2 C 113 H 18 130/89 96 Room Air 04/04/24 08:19 82 04/04/24 08:09 36.3 C L 94 H 18 135/96 96 Room Air 04/04/24 04:17 36.3 C L 89 18 119/78 95 Room Air
[2024-04-04] MEDS: cloNIDine HCL 0.1 MG TAB PO ONE (21:11)
[2024-04-04] MEDS: ACETAMINOPHEN 325 MG TAB PO PRN (21:11)
[2024-04-04 22:02] LABS: Marijuana Quant, GCMS Urine 36 ng/mL (<5)
[2024-04-04] MEDS: chlordiazePOXIDE HCl 25 MG CAP PO SCH (23:57)
[2024-04-05] MEDS: PROMETHAZINE HCL 6.25 MG in SODIUM CHLORIDE 0.9% 50 ML IV PRN (02:08)
[2024-04-05 07:58] LABS: BUN Creatinine Ratio 12.5 (10-20); Calcium 8.8 mg/dl (8.6-10.3); Est GFR (Non-African American) 120.8 ml/min; Phosphorus 5.6 mg/dl (2.5-4.9)
[2024-04-05] MEDS ORDERED: ONDANSETRON INJ 2 MG/ML 2 ML VIAL IV PRN (08:56)
--- NOTE | 2024-04-05 15:36 | Hospitalist Progress Note ---
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 He also reports some nausea, denies vomiting. Denies abdominal pain. Denies chest pain shortness of breath or febrile illness. He reported snoring while sleeping. He is being managed for the following: SIRS positive Rule out sepsis 1 of 4 bottles positive blood cx: likely contaminant. repeat bl cx 04/04. Antibiotic until repeat cx are neg. At admission, WBC and pulse rate elevated, procalcitonin elevated, lactate WNL, no source of infection identified. At admission: Lyme screen negative, stool PCR negative, C. difficile negative, UA negative. Patient with no cough or febrile illness or abdominal pain or pain or burning with passing urine. Patient started on cefepime 04/03, continue for now, DC once repeat blood culture negative for 48 hours. Follow blood culture 04/03. Closely monitor for any other signs and symptoms of infection. Alcohol intoxication: Admitting alc level 368.8 Risks of alcohol withdrawal Patient reports drinking 1 L of gin or radha daily along with 12 pack of beer. Last drink was 04/02/2024 AM. AWSS protocol, thiamine, folic acid, as needed Ativan, Librium taper. Telemetry monitoring. Likely will benefit from inpatient rehab. CM assisting w/ inpatient rehab plan per pt wishes. Bilateral shoulder pain: Admitting CT negative for acute fracture or pathology. Continue with pain management. 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 Admitting stool culture and C. difficile negative . resolved. Acute on chronic anemia: Baseline hemoglobin of around 13, admitting hemoglobin of 12.8 which dropped to 10.8 the following day. FOBT done in the ED negative. Likely acute anemia in the setting of excessive alcohol use with dilutional component unmasking the anemia after admission. Iron profile with adequate iron store, vitamin B12 and folate WNL. Repeat iron profile and vitamin B12/folate levels in about 2 to 3 months time. Expect to improve with cessation of alcohol use. Alcoholic hepatitis, likely good prognosis with normal PT level, LFT trending down. monitor. Possible LILIANA: sleep study as OP. Prediabetes: A1c 5.7, encouraged lifestyle modification/incorporation of exercise regimen. repeat A1c in 3 months. Other chronic medical conditions: Continue with/resume home meds as and when able. mood disorder, patient not suicidal, patient not on maintenance medications Hyperglycemia rule out DM history of substance abuse ongoing tobacco abuse, Nicotine patch. DVT prophylaxis. Lovenox subcu Full code Text document was generated using [employer] voice recognition software. It may contain grammatical or spelling errors. Kindly contact undersigned for clarification of any documentation item in question. Admission and Anticipated Discharge Date Admission Date: April 02, 2024 Subjective Patient was seen and examined at bedside. Patient was lying in bed, on room air, NAD, resting comfortably. Patient denies any fever, chills, recent flulike illness, sore throat, chest pain. Pt reports no more diarrhea, but reports more tremulous w/ nausea and vomiting today. Appears anxious today. Physical Exam Physical Exam: GENERAL: Alert and oriented x3. NAD, on RA. tremors x b/l hand +ve HEENT: No pallor, no icterus. Pupils equal, round and reactive to light. Oral mucosa moist. NECK: No JVD, no neck masses. HEART: S1 and S2 heard. Regular rate and rhythm. tachycardia. No murmur, no gallop. RESPIRATORY SYSTEM: Normal AP diameter. No accessory muscle use. No wheezing, no crackles. ABDOMEN: Soft, bowel sounds present, nontender, no distention. CENTRAL NERVOUS SYSTEM: No facial droop. Speech is clear. Obeys simple commands. Moves extremities. EXTREMITIES: No edema, no erythema seen. Results & Data Results & Data Vital Signs (Past 12 Hours) Vital Signs Temp Pulse Pulse Resp BP Pulse Ox O2 Del Method 04/05/24 11:50 36.8 C 70 18 118/75 96 Room Air 04/05/24 08:27 36.8 C 99 H 18 116/71 98 Room Air 04/05/24 08:14 113 H 04/05/24 07:10 Room Air 04/05/24 07:09 O2 Del Method 04/05/24 11:50 04/05/24 08:27 04/05/24 08:14 04/05/24 07:10 04/05/24 07:09 Room Air
[2024-04-06 08:12] LABS: Calcium 9.2 mg/dl (8.6-10.3); Creatinine Clr Calc Pharmacy 140.8 ml/min; Est GFR (African American) 131.1 ml/min; Est GFR (Non-African American) 113.1 ml/min; Magnesium 2.2 mg/dl (1.7-2.4); Phosphorus 5.3 mg/dl (2.5-4.9); Potassium 4.3 mmol/L (3.5-5.1)
--- NOTE | 2024-04-06 10:05 | XRay Report ---
XR knee LT 3V HISTORY: 43 years-old Male left knee pain/ swelling acute left knee pain status post trauma COMPARISON: 06/04/2021 TECHNIQUE: 3 views of the left knee FINDINGS: Moderate size joint effusion. There is mild tricompartmental osteoarthritis of the knee. Mild circumf erential soft tissue swelling. No acute fracture, dislocation or opaque foreign body. IMPRESSION: 1. No acute fracture. 2. Soft tissue swelling with moderate joint effusion. ACT 112: Negative or not required by law. The above report was generated using voice recognition software. It may contain grammatical, syntax o r spelling errors. Electronically signed by: Basim Avelar M.D. 04/06/2024 10:04 AM
[2024-04-06] MEDS: predniSONE 20 MG TAB PO SCH (11:09)
[2024-04-06] MEDS: DICLOFENAC SOD 1% GEL 100 GM TUBE EXT SCH (11:09)
[2024-04-06] MEDS: PANTOprazole 40 MG TAB PO SCH (11:09)
--- NOTE | 2024-04-06 16:13 | Hospitalist Progress Note ---
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 He also reports some nausea, denies vomiting. Denies abdominal pain. Denies chest pain shortness of breath or febrile illness. He reported snoring while sleeping. He is being managed for the following: SIRS positive Rule out sepsis 1 of 4 bottles positive blood cx: likely contaminant. repeat bl cx 04/04. Antibiotic until repeat cx are neg. At admission, WBC and pulse rate elevated, procalcitonin elevated, lactate WNL, no source of infection identified. At admission: Lyme screen negative, stool PCR negative, C. difficile negative, UA negative. Patient with no cough or febrile illness or abdominal pain or pain or burning with passing urine. Patient started on cefepime 04/03, continue for now, DC once repeat blood culture negative for 48 hours. Follow blood culture 04/03. Closely monitor for any other signs and symptoms of infection. Left knee Swelling/gout vs infxn: XR left knee reviewed, prednisone started, ortho consulted. monitor for improvement. Alcohol intoxication: Admitting alc level 368.8 Risks of alcohol withdrawal Patient reports drinking 1 L of gin or radha daily along with 12 pack of beer. Last drink was 04/02/2024 AM. AWSS protocol, thiamine, folic acid, as needed Ativan, Librium taper. Telemetry monitoring. Likely will benefit from inpatient rehab. CM assisting w/ inpatient rehab plan per pt wishes. Bilateral shoulder pain: Admitting CT negative for acute fracture or pathology. Continue with pain management. 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 Admitting stool culture and C. difficile negative . resolved. Acute on chronic anemia: Baseline hemoglobin of around 13, admitting hemoglobin of 12.8 which dropped to 10.8 the following day. FOBT done in the ED negative. Likely acute anemia in the setting of excessive alcohol use with dilutional component unmasking the anemia after admission. Iron profile with adequate iron store, vitamin B12 and folate WNL. Repeat iron profile and vitamin B12/folate levels in about 2 to 3 months time. Expect to improve with cessation of alcohol use. Alcoholic hepatitis, likely good prognosis with normal PT level, LFT trending down. monitor. Possible LILIANA: sleep study as OP. Prediabetes: A1c 5.7, encouraged lifestyle modification/incorporation of exercise regimen. repeat A1c in 3 months. Other chronic medical conditions: Continue with/resume home meds as and when able. mood disorder, patient not suicidal, patient not on maintenance medications Hyperglycemia rule out DM history of substance abuse ongoing tobacco abuse, Nicotine patch. DVT prophylaxis. Lovenox subcu Full code Text document was generated using [employer] voice recognition software. It may contain grammatical or spelling errors. Kindly contact undersigned for clarification of any documentation item in question. Admission and Anticipated Discharge Date Admission Date: April 02, 2024 Subjective Patient was seen and examined at bedside. Patient was lying in bed, on room air, NAD, resting comfortably. Patient denies any fever, chills, recent flulike illness, sore throat, chest pain. Pt reports no more diarrhea, reports left knee swelling and pain. Has h/o gout for which he takes prn colchicine. Physical Exam Physical Exam: GENERAL: Alert and oriented x3. NAD, on RA. tremors x b/l hand +ve HEENT: No pallor, no icterus. Pupils equal, round and reactive to light. Oral mucosa moist. NECK: No JVD, no neck masses. HEART: S1 and S2 heard. Regular rate and rhythm. tachycardia. No murmur, no gallop. RESPIRATORY SYSTEM: Normal AP diameter. No accessory muscle use. No wheezing, no crackles. ABDOMEN: Soft, bowel sounds present, nontender, no distention. CENTRAL NERVOUS SYSTEM: No facial droop. Speech is clear. Obeys simple commands. Moves extremities. EXTREMITIES: No edema, no erythema seen. left knee swollen, warm, painful rom (doesn't seem out of proportion pain) Results & Data Results & Data Vital Signs (Past 12 Hours) Vital Signs Temp Pulse Pulse Resp BP Pulse Ox O2 Del Method 04/06/24 15:20 36.7 C 115 H 18 151/94 H 98 Room Air 04/06/24 11:31 36.4 C L 97 H 18 112/71 97 Room Air 07/28/24 08:16 36.6 C 102 H 18 121/79 94 Room Air 04/06/24 08:14 105 H 04/06/24 08:13 O2 Del Method 04/06/24 15:20 04/06/24 11:31 04/06/24 08:16 04/06/24 08:14 04/06/24 08:13 Room Air
[2024-04-06] MEDS: LIDOCAINE 1% LOCAL 20 ML VIAL INFIL ONE (20:19)
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
[2024-04-06 20:38] LABS: Appearance Synovial Fluid Hazy; Color Synovial Fluid Pale Yellow; Mononuclear WBC Synovial 23.2 %; Polynuclear WBC Synovial 76.8 %; RBC Synovial Fluid Auto < 2000 /uL; Source Synovial Fluid Left Knee; WBC Synovial Fluid Auto 14135 /ul (0-200)
[2024-04-07 07:19] LABS: Hematocrit (blood only) 30.3 % (42.0-52.0); Hemoglobin 10.1 g/dl (14.0-18.0); Mean Corpuscular Hgb Conc 33.3 g/dL (32.0-36.0); Mean Platelet Volume 10.8 fL (9.4-12.4); Platelet Count 234 K/uL (130-400); RDW Coefficient of Variation 15.5 % (11.5-14.5); RDW Standard Deviation 56.4 fL (36.4-46.3); Red Blood Count 3.06 M/uL (4.70-6.10); White Blood Count 10.71 K/ul (4.8-10.8)
[2024-04-07 07:37] LABS: BUN Creatinine Ratio 13.2 (10-20); Calcium 8.7 mg/dl (8.6-10.3); Creatinine Clr Calc Pharmacy 155.3 ml/min; Est GFR (African American) 136.5 ml/min; Est GFR (Non-African American) 117.8 ml/min; Magnesium 2.3 mg/dl (1.7-2.4); Phosphorus 5.2 mg/dl (2.5-4.9); Potassium 3.9 mmol/L (3.5-5.1)
--- NOTE | 2024-04-07 09:14 | Orthopedic Progress Note ---
Date of Service April 07, 2024 Assessment & Plan (1) Knee effusion, left: Plan: Patient is status post a left knee aspiration. He is much improved today. He can weight-bear as tolerated on the left knee. A compression wrap has been applied to the left knee and recommend keeping that in place. He can do gentle range of motion exercises as instructed. PT and OT. Will continue to follow culture, crystal analysis and Gram stain results. Will update patient as information becomes available. He may be out of bed as tolerated. May have regular diet. His fluid analysis revealed a slightly elevated white blood cell count but not suggestive for infection. Will continue to follow. Admission and Anticipated Discharge Date Admission Date: April 02, 2024 Supervising Physician Co-Signing Physician Notes I, Dr. Wise, saw and examined the patient. I discussed the management with my PA. I reviewed my PAs note and agree with the documented findings and attest to completing the substantive portion of medical decision making and plan of care I developed. Subjective Patient was seen at bedside today. Dr. Wise present for today's visit. Patient is ambulating in room at the time of our arrival. He states that his knee feels significantly better. He has been ambulating the halls and doing the exercises as instructed. He states that he can move it much better and his pain has minimized significantly. He has not had a fever. He has been tolerating a regular diet. He is pleased with how well his knee feels today. Physical Exam Musculoskeletal: Exam of his left lower extremity: He has no distal edema. Full ankle and hip range of motion. Range of motion active left knee is full extension to 105 flexion. He has small effusion, less than yesterday. Nontender to palpation. Extensor mechanism is intact. Calf is supple and nontender. Ambulates throughout the room with a slight antalgic gait without an assistive device. Results & Data Vital Signs (Past 12 Hours) Vital Signs Temp Pulse Pulse Resp BP Pulse Ox O2 Del Method 04/07/24 08:07 85 04/07/24 07:50 36.4 C L 90 18 109/71 95 Room Air 04/07/24 03:16 36.6 C 107 H 20 123/69 94 Room Air 04/06/24 23:33 36.5 C 110 H 20 132/86 95 Room Air 04/06/24 23:00 101 H Laboratory Results 04/07/24 04/06/24 04/06/24 Range/Units 06:58 20:14 19:49 WBC 10.71 (4.8-10.8) K/ul RBC 3.06 L (4.70-6.10) M/uL Hgb 10.1 L (14.0-18.0) g/dl Hct 30.3 L (42.0-52.0) % MCV 99.0 (80.0-100.0) fL MCH 33.0 (25.0-34.0) pg MCHC 33.3 (32.0-36.0) g/dL RDW Std Deviation 56.4 H (36.4-46.3) fL RDW Coeff of Dhiraj 15.5 H (11.5-14.5) % Plt Count 234 (130-400) K/uL MPV 10.8 (9.4-12.4) fL Sodium 140 (136-145) mmol/L Potassium 3.9 (3.5-5.1) mmol/L Chloride 106 (98-107) mmol/L Carbon Dioxide 28 (21-32) mmol/L Anion Gap 6 (3-11) BUN 9 (6-23) mg/dl Creatinine 0.68 (0.6-1.4) mg/dl Est Cr Clr Drug Dosing 155.3 ml/min Est GFR ( Amer) 136.5 ml/min Est GFR (Non-Af Amer) 117.8 ml/min BUN/Creatinine Ratio 13.2 (10-20) Glucose 108 H (70-99(Fasting)) mg/dl Calcium 8.7 (8.6-10.3) mg/dl Phosphorus 5.2 H (2.5-4.9) mg/dl Magnesium 2.3 (1.7-2.4) mg/dl Fluid Comment Synovial Source Left Knee Synovial Color Pale Yellow Synovial Appearance Hazy Synovial WBC (Auto) 27438 H (0-200) /ul Synovial RBC (Auto) < 2000 /uL Synovial Polynuclear % 76.8 % Synovial Mononuclear % 23.2 % Synovial Crystals Pending Anaplasma Smear See Comment Babesia Smear See Comment Babesia microti DNA PCR Pending Lyme Disease Screen Negative (Negative) Microbiology 04/04/24 09:03 Aerobic Blood Culture - Preliminary Blood No growth in Aerobic bottle after 48 hours. Anaerobic Blood Culture - Preliminary No growth in Anaerobic bottle after 48 hours. 04/04/24 09:05 Aerobic Blood Culture - Preliminary Blood No growth in Aerobic bottle after 48 hours. Anaerobic Blood Culture - Preliminary No growth in Anaerobic bottle after 48 hours. Left knee aspirate cultures and Gram stain currently pending. Crystal analysis pending
--- NOTE | 2024-04-07 15:49 | Hospitalist Progress Note ---
Date of Service April 07, 2024 Assessment & Plan (1) Alcohol withdrawal syndrome: Plan: 43-year-old male with PMH of chronic anemia [baseline hemoglobin of 13], GERD, possible LILIANA, gout, mood disorder, history of substance abuse, ongoing tobacco/alcohol abuse presented to the ED 04/02 with complaint of not feeling well since the last few days [employer] and also reported having loose stools about 4-5 times a day for about 1 to 2 months prior to arrival. He also reports some nausea, denies vomiting. Denies abdominal pain. Denies chest pain shortness of breath or febrile illness. He reported snoring while sleeping. He is being managed for the following: SIRS positive Rule out sepsis 1 of 4 bottles positive blood cx: likely contaminant. repeat bl cx 04/04 w/ NC48H, will dc antibiotics. At admission, WBC and pulse rate elevated, procalcitonin elevated, lactate WNL, no source of infection identified. At admission: Lyme screen negative, stool PCR negative, C. difficile negative, UA negative. Patient with no cough or febrile illness or abdominal pain or pain or burning with passing urine. Infection ruled out, antibiotic discontinued. Follow-up final blood culture and sensitivity. Monitor off antibiotic. Closely monitor for any other signs and symptoms of infection. Left knee Swelling/gout vs infxn: XR left knee reviewed, prednisone started 04/06, ortho consulted. 04/06 joint aspiration - +ve for gout. Patient reports improving left knee pain. Alcohol intoxication: Admitting alc level 368.8 Risks of alcohol withdrawal Patient reports drinking 1 L of gin or radha daily along with 12 pack of beer. Last drink was 04/02/2024 AM. AWSS protocol, thiamine, folic acid, as needed Ativan, Librium taper. Telemetry monitoring. Likely will benefit from inpatient rehab. CM assisting w/ inpatient rehab plan per pt wishes. Bilateral shoulder pain: Admitting CT negative for acute fracture or pathology. Continue with pain management. Loose stools Electrolyte abnormalities Patient reports having loose stools 4-5 times a day for about 1 to 2 months [employer]. Admitting stool culture and C. difficile negative . resolved. Acute on chronic anemia: Baseline hemoglobin of around 13, admitting hemoglobin of 12.8 which dropped to 10.8 the following day. FOBT done in the ED negative. Likely acute anemia in the setting of excessive alcohol use with dilutional component unmasking the anemia after admission. Iron profile with adequate iron store, vitamin B12 and folate WNL. Repeat iron profile and vitamin B12/folate levels in about 2 to 3 months time. Expect to improve with cessation of alcohol use. Alcoholic hepatitis, likely good prognosis with normal PT level, LFT trending down. monitor. Possible LILIANA: sleep study as OP. Prediabetes: A1c 5.7, encouraged lifestyle modification/incorporation of exercise regimen. repeat A1c in 3 months. Other chronic medical conditions: Continue with/resume home meds as and when able. mood disorder, patient not suicidal, patient not on maintenance medications Hyperglycemia rule out DM history of substance abuse ongoing tobacco abuse, Nicotine patch. DVT prophylaxis. Lovenox subcu Full code Text document was generated using [employer] voice recognition software. It may contain grammatical or spelling errors. Kindly contact undersigned for clarification of any documentation item in question. Admission and Anticipated Discharge Date Admission Date: April 02, 2024 Subjective Patient was seen and examined at bedside. Patient was lying in bed, on room air, NAD, resting comfortably. Patient denies any fever, chills, recent flulike illness, sore throat, chest pain. Pt reports no more diarrhea. He reports improvement in his left knee pain after starting steroid and joint aspiration. Physical Exam Physical Exam: GENERAL: Alert and oriented x3. NAD, on RA. tremors x b/l hand +ve HEENT: No pallor, no icterus. Pupils equal, round and reactive to light. Oral mucosa moist. NECK: No JVD, no neck masses. HEART: S1 and S2 heard. Regular rate and rhythm. tachycardia. No murmur, no gallop. RESPIRATORY SYSTEM: Normal AP diameter. No accessory muscle use. No wheezing, no crackles. ABDOMEN: Soft, bowel sounds present, nontender, no distention. CENTRAL NERVOUS SYSTEM: No facial droop. Speech is clear. Obeys simple commands. Moves extremities. EXTREMITIES: No edema, no erythema seen. left knee w/ dressing, improved rom Results & Data Results & Data Vital Signs (Past 12 Hours) Vital Signs Temp Pulse Pulse Resp BP Pulse Ox O2 Del Method 04/07/24 12:24 36.4 C L 96 H 18 116/77 96 Room Air 04/07/24 08:07 85 04/07/24 08:00 04/07/24 07:50 36.4 C L 90 18 109/71 95 Room Air O2 Del Method 04/07/24 12:24 04/07/24 08:07 04/07/24 08:00 Room Air 04/07/24 07:50
[2024-04-07] MEDS: LORazepam 2 MG in SYRINGE 1 ML IV PRN (16:51)
--- NOTE | 2024-04-08 13:34 | Orthopedic Progress Note ---
Date of Service April 08, 2024 Assessment & Plan (1) Gout of left knee: Plan: The patient was educated regarding today's findings. He states he is not aware of the gout diagnosis. Through further discussion, he relates that he has 2 bottles of colchicine that he recently picked up from the [facility]. He did not take the medication once it was picked up. He has a history of gout, but states he has never had an attack in his knee. He was reassured that there has been no indication for infection of his knee. His symptoms are likely related to gout. Risk of recurrence is high given his alcohol habits, risk of dehydration, and lack of regular preventative medication. The patient states he believes he will be discharged tomorrow. He was encouraged to follow-up with his PCP at the [facility] to discuss medication adjustments. He does not require any antibiotics. He is desiring outpatient alcohol treatment/counseling. However, he does not have access to a vehicle and has stated before that he is homeless. He now states he may stay with a friend. Inpatient rehab will be encouraged. Continue with the compression wrap for edema control. Ice and elevate the knee frequently to reduce pain and swelling. Maintain hydration and avoid alcohol. Avoid protein rich foods. He will need to be on a daily dose of preventative medication at this point. Follow-up pcp for gout management, follow-up with ortho as needed. Admission and Anticipated Discharge Date Admission Date: April 02, 2024 Supervising Physician Co-Signing Physician Notes I, Dr. Wise, saw and examined the patient. I discussed the management with my PA. I reviewed my PAs note and agree with the documented findings and attest to completing the substantive portion of medical decision making and plan of care I developed. Subjective This 43-year-old male was seen today in his room. He states the knee is better than prior to the aspiration. He states the pain has been increasing slightly, especially in the posterior aspect of the knee. He notes the swelling has increased slightly. He continues to be quite active. He states he took multiple walks yesterday using his cane, but overnight became anxious and did extensive walking without any assistive device. He thinks he will be discharged tomorrow. No fevers or chills. No new areas of discomfort. No other complaints. Physical Exam Physical Exam: General: Well-developed, well-nourished, middle-aged male, in no acute distress. Sitting on the edge of the bed. Alert and oriented. Skin: Warm and dry with good turgor. No rashes. Mild intra-articular effusion in the left knee. No erythema or warmth. Musculoskeletal: The patient has full terminal extension. Flexion to greater than 100 degrees. Strength is 5/5 with good quad tone. Mild discomfort with palpation over the popliteal fossa. No significant discomfort with palpation over the medial or lateral joint lines. No pain over his patellar tendon or quadriceps tendon. Ambulating with no significant limp. Neurologic: Gross sensation is intact across the left leg by soft touch. Peripheral pulses are 2+. Results & Data Vital Signs (Past 12 Hours) Vital Signs Temp Pulse Pulse Resp BP BP Pulse Ox 04/08/24 11:07 36.6 C 83 20 113/70 95 04/08/24 09:42 112 H 04/08/24 08:00 04/08/24 07:38 36.5 C 61 16 120/78 98 04/08/24 05:45 36.4 C L 111 H 20 131/87 97 04/08/24 03:22 36.4 C L 100 H 18 134/89 95 O2 Del Method O2 Del Method 04/08/24 11:07 Room Air 04/08/24 09:42 04/08/24 08:00 Room Air 04/08/24 07:38 Room Air 04/08/24 05:45 Room Air 04/08/24 03:22 Room Air Laboratory Results Knee aspirate was positive for gout.
--- NOTE | 2024-04-08 16:20 | Hospitalist Progress Note ---
Date of Service April 08, 2024 Assessment & Plan (1) Alcohol withdrawal syndrome: Plan: 43-year-old male with PMH of chronic anemia [baseline hemoglobin of 13], GERD, possible LILIANA, gout, mood disorder, history of substance abuse, ongoing tobacco/alcohol abuse presented to the ED 04/02 with complaint of not feeling well since the last few days [employer] and also reported having loose stools about 4-5 times a day for about 1 to 2 months prior to arrival. He also reports some nausea, denies vomiting. Denies abdominal pain. Denies chest pain shortness of breath or febrile illness. He reported snoring while sleeping. He is being managed for the following: SIRS positive Rule out sepsis 1 of 4 bottles positive blood cx: likely contaminant. repeat bl cx 04/04 w/ NC48H, will dc antibiotics. At admission, WBC and pulse rate elevated, procalcitonin elevated, lactate WNL, no source of infection identified. At admission: Lyme screen negative, stool PCR negative, C. difficile negative, UA negative. Patient with no cough or febrile illness or abdominal pain or pain or burning with passing urine. Infection ruled out, antibiotic discontinued. Follow-up final blood culture and sensitivity. Monitor off antibiotic. Closely monitor for any other signs and symptoms of infection. Left knee Swelling/gout vs infxn: XR left knee reviewed, prednisone started 04/06, ortho consulted. 04/06 joint aspiration - +ve for gout. Patient reports improving left knee pain. Taper steroid after resolution of knee pain over 7 to 10 days. Follow-up final results on joint aspiration culture. Alcohol intoxication: Admitting alc level 368.8 Risks of alcohol withdrawal Patient reports drinking 1 L of gin or radha daily along with 12 pack of beer. Last drink was 04/02/2024 AM. AWSS protocol, thiamine, folic acid, as needed Ativan, Librium taper. Telemetry monitoring. pt decided against inpatient rehab. counselled again on importance of alc cessation. Bilateral shoulder pain: Admitting CT negative for acute fracture or pathology. Continue with pain management. Loose stools Electrolyte abnormalities Patient reports having loose stools 4-5 times a day for about 1 to 2 months [employer]. Admitting stool culture and C. difficile negative . resolved. Acute on chronic anemia: Baseline hemoglobin of around 13, admitting hemoglobin of 12.8 which dropped to 10.8 the following day. FOBT done in the ED negative. Likely acute anemia in the setting of excessive alcohol use with dilutional component unmasking the anemia after admission. Iron profile with adequate iron store, vitamin B12 and folate WNL. Repeat iron profile and vitamin B12/folate levels in about 2 to 3 months time. Expect to improve with cessation of alcohol use. Alcoholic hepatitis, likely good prognosis with normal PT level, LFT trending down. monitor. Possible LILIANA: sleep study as OP. Prediabetes: A1c 5.7, encouraged lifestyle modification/incorporation of exercise regimen. repeat A1c in 3 months. Other chronic medical conditions: Continue with/resume home meds as and when able. mood disorder, patient not suicidal, patient not on maintenance medications Hyperglycemia rule out DM history of substance abuse ongoing tobacco abuse, Nicotine patch. DVT prophylaxis. Lovenox subcu Full code Dispo: likely dc narayan. Text document was generated using [employer] voice recognition software. It may contain grammatical or spelling errors. Kindly contact undersigned for clarification of any documentation item in [employer] ion. Admission and Anticipated Discharge Date Admission Date: April 02, 2024 Subjective Patient was seen and examined at bedside. Patient was lying in bed, on room air, NAD, resting comfortably. Patient denies any fever, chills, recent flulike illness, sore throat, chest p ain. Pt reports no more diarrhea. He reports improvement in his left knee pain after starting steroid and joint aspiration. Patient has decided against inpatient rehab, [facility] Patient counseled on importance of alcohol cessation. Patient would like to go home tomorrow. Physical Exam Physical Exam: GENERAL: Alert and oriented x3. NAD, on RA. tremors x b/l hand +ve HEENT: No pallor, no icterus. Pupils equal, round and reactive to light. Oral mucosa moist. NECK: No JVD, no neck masses. HEART: S1 and S2 heard. Regular rate and rhythm. tachycardia. No murmur, no gallop. RESPIRATORY SYSTEM: Normal AP diameter. No accessory muscle use. No wheezing, no crackles. ABDOMEN: Soft, bowel sounds present, nontender, no distention. CENTRAL NERVOUS SYSTEM: No facial droop. Speech is clear. Obeys simple commands. Moves extremities. EXTREMITIES: No edema, no erythema seen. left knee w/ dressing, improved rom Results & Data Results & Data Vital Signs (Past 12 Hours) Vital Signs Temp Pulse Pulse Resp BP BP Pulse Ox 04/08/24 15:51 36.7 C 86 18 117/71 96 04/08/24 11:07 36.6 C 83 20 113/70 95 04/08/24 09:42 112 H 04/08/24 08:00 04/08/24 07:38 36.5 C 61 16 120/78 98 04/08/24 05:45 36.4 C L 111 H 20 131/87 97 O2 Del Method O2 Del Method 04/08/24 15:51 Room Air 04/08/24 11:07 Room Air 04/08/24 09:42 04/08/24 08:00 Room Air 04/08/24 07:38 Room Air 04/08/24 05:45 Room Air
[2024-04-09 06:07] LABS: Hematocrit (blood only) 32.2 % (42.0-52.0); Hemoglobin 10.4 g/dl (14.0-18.0); Mean Corpuscular Hgb Conc 32.3 g/dL (32.0-36.0); Mean Corpuscular Volume 102.2 fL (80.0-100.0); Mean Platelet Volume 10.7 fL (9.4-12.4); Platelet Count 307 K/uL (130-400); RDW Coefficient of Variation 15.6 % (11.5-14.5); RDW Standard Deviation 58.4 fL (36.4-46.3); Red Blood Count 3.15 M/uL (4.70-6.10); White Blood Count 13.29 K/ul (4.8-10.8)
[2024-04-09 06:23] LABS: BUN Creatinine Ratio 14.9 (10-20); Calcium 8.6 mg/dl (8.6-10.3); Creatinine Clr Calc Pharmacy 157.6 ml/min; Est GFR (African American) 137.4 ml/min; Est GFR (Non-African American) 118.5 ml/min; Phosphorus 4.2 mg/dl (2.5-4.9); Potassium 3.6 mmol/L (3.5-5.1)
--- NOTE | 2024-04-09 12:04 | Discharge Summary ---
Date of Service April 09, 2024 Admission HPI Per Admitting Provider History obtained from patient and records. Medical history significant for chronic anemia (baseline hemoglobin of 13), GERD, possible LILIANA, gout, mood disorder, history of substance abuse, ongoing tobacco/alcohol abuse. Patient not feeling well the last few days. Watery stools of 1 month duration with nausea symptoms. No abdominal pain. Denies black/bloody stools, hematuria or unusual bleeding. Denies chest pain, SOB, cough symptoms. Longstanding possible sleep apnea symptoms. Worsening bilateral shoulder pain going on for some time now. Denies neck pain. Admits to depression but denies suicidality. Patient consulted ER due to wishes for detox. 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 Admission Exam Per Admitting Provider GENERAL: uncomfortable, tearful, no respiratory distress SKIN: Pallor,, warm HEENT: Pale palpebral conjunctivae, no ptosis, dry buccal mucosa NECK : Supple, no tenderness CHEST : CTA, no tenderness HEART : Tachycardic, no obvious murmurs ABDOMEN: Some distention, nontender RECTAL : Intact sphincter, brown stool (FOBT negative) EXTREMITIES : No LE swelling/tenderness, minimal upper extremity tenderness, no other conspicuous deformities noted NEUROLOGIC : Coherent, no facial asymmetry, no other gross focality Principal Diagnosis Alcohol withdrawal Gout flare, left knee Acute on chronic anemia Discharge Exam Constitutional + well hydrated; no acute distress Eyes PERRL, conjunctivae normal, anicteric sclerae ENMT external ear and nose normal, oropharynx normal Respiratory normal respiratory effort, lungs clear to auscultation Cardiovascular Rate/Rhythm: regular rate and regular rhythm Gastrointestinal (Abdomen) normal bowel sounds, soft, nontender, no hepatosplenomegaly Musculoskeletal Left knee bandaged Neurologic PERRL, EOMI, accommodation nl, no face palsy, no dysarthria Psychiatric A+Ox3, euthymic affect Discharge Data Allergies Allergy/AdvReac Type Severity Reaction Status Date / Time No Known Allergies Allergy Verified 04/02/24 18:34 Consultations 04/02/24 19:40 ED Decision to Admit Stat 04/03/24 12:56 Consult Behavioral Health Liaison Routine 04/06/24 09:41 Consult Orthopedic Surgery Routine Ordered Studies 04/03/24 01:33 CT shoulder LT w con Stat CT shoulder RT w con Stat Hospital Course (1) Alcohol withdrawal syndrome: 43-year-old male with PMH of chronic anemia [baseline hemoglobin of 13], GERD, possible LILIANA, gout, mood disorder, history of substance abuse, ongoing tobacco/alcohol abuse presented to the ED 04/02 with complaint of not feeling well since the last few days [employer] and also reported having loose stools about 4-5 times a day for about 1 to 2 months prior to arrival. He also reports some nausea, denies vomiting. Denies abdominal pain. Denies chest pain shortness of breath or febrile illness. He reported snoring while sleeping. He is being managed for the following: SIRS positive Ruled out sepsis 1 of 4 bottles positive blood cx: (Grew CONS) likely contaminant. repeat bl cx 04/04 negative At admission, WBC and pulse rate elevated, procalcitonin elevated, lactate WNL, no source of infection identified. At admission: Lyme screen negative, stool PCR negative, C. difficile negative, UA negative. Patient with no cough or febrile illness or abdominal pain or pain or burning with passing urine. Infection ruled out, antibiotic discontinued. Follow-up final blood culture and sensitivity. Left knee effusion/gout: XR left knee showed soft tissues swelling with moderate joint effusion Prednisone started 04/06, Ortho consulted evaluated and performed joint aspiration which was positive for gout. Synovial culture negative Knee pain improved Discharged on lower dose of prednisone to complete treatment Reports he was supposed to be taking allopurinol daily at home. He does not recall dose but stated he has enough medicine. Advised to take allopurinol and follow up with his PCP for med rec Alcohol intoxication: Admitting alc level 368.8 Risks of alcohol withdrawal Patient reports drinking 1 L of gin or radha daily along with 12 pack of beer. Last drink was 04/02/2024 AM. Was managed for alcohol withdrawal pt decided against inpatient rehab. Resources provided for outpatient rehab Bilateral shoulder pain: Admitting CT negative for acute fracture or pathology. Loose stools Electrolyte abnormalities Patient reports having loose stools 4-5 times a day for about 1 to 2 months [employer]. Admitting stool culture and C. difficile negative . Resolved. Acute on chronic anemia: Baseline hemoglobin of around 13, admitting hemoglobin of 12.8 which dropped to 10.8 the following day. FOBT done in the ED negative. Likely anemia in the setting of excessive alcohol use with dilutional component unmasking the anemia after admission. Iron profile with adequate iron store, vitamin B12 and folate WNL. Hb stable in 10s Follow up with PCP Elevated LFT Due to alcohol abuse. Trended down Possible LILIANA: Get sleep study Prediabetes: A1c 5.7, encouraged lifestyle modification/incorporation of exercise regimen. repeat A1c in 3 months. Other chronic medical conditions: . mood disorder, patient not suicidal, patient not on maintenance medications history of substance abuse ongoing tobacco abuse, Nicotine patch. Total Time Total Time Spent Total Time Spent (In Minutes): 35 Total Time Includes: Examination of the Patient, Discharge Planning and Medication Reconciliation Discharge Plan Discharge Items Patient Disposition: Home - Self-Care Reason For Visit: ALCOHOL WITHDRAWAL Discharge Diagnosis: Alcohol withdrawal Gout flare, left knee Acute on chronic anemia Activity: Resume your previous activity Non-emergency contact: Primary Care Provider Call non-emergency contact if: you have any medication questions and your symptoms worsen Follow-up/Referrals: Christopher Wise MD [Physician] - (as needed) Nayeli Gutierrez MD [Primary Care Provider] - Diet: Regular Addtl Attending Provider Instructions: Mr Reyes You were managed in the hospital for the above listed diagnoses. You are being discharged on few more days of prednisone for your gout flare. Please hold off your ibuprofen while on prednisone. Please ensure you start taking the allopurinol you stated you have at home and follow up with your Primary Doctor for proper medication reconciliation. Please avoid alcohol as we discussed and utilize the outpatient rehab services advised. It was a pleasure taking care of you. Pending Studies at Discharge: No Stand-Alone Forms: [facility], Smoking Cessation Medications and DC Order Prescriptions: New cyanocobalamin (vitamin B-12) [Vitamin B-12] 100 mcg Tablet 100 mcg PO QAM 30 Days Qty: 30 0RF prednisone 20 mg Tablet 20 mg PO QAM 4 Days Qty: 4 0RF thiamine HCl (vitamin B1) 100 mg Tablet 100 mg PO QAM 30 Days Qty: 30 0RF folic acid 1 mg Tablet 1 mg PO QAM 30 Days Qty: 30 0RF multivitamin with folic acid [Daily-Mark (with folic acid)] 400 mcg Tablet 1 tab PO QAM 30 Days Qty: 30 0RF oxycodone 5 mg tablet 5 mg PO TID PRN (Reason: pain, severe) Qty: 12 0RF Continued acetaminophen [Tylenol Extra Strength] 500 mg Tablet 1,000 mg PO Q6H PRN (Reason: Pain) omeprazole 20 mg Capsule,Delayed Release(Dr/Ec) 20 mg PO DAILY PRN (Reason: Acid Reflux) lidocaine [Lidoderm] 5 % adhesive patch,medicated 1 patch topical DAILY PRN (Reason: Pain) Rx Instructions: leave on most painful area for up to 12 hrs cyclobenzaprine 10 mg tablet 10 mg PO TID PRN (Reason: muscle spasm) Qty: 10 0RF Rx Instructions: UNKNOWN WHEN LAST FILLED gabapentin 600 mg tablet 600 mg PO HS Rx Instructions: LAST FILLED 11/19/23 FOR 90 CAPS/90 DAYS gabapentin 100 mg capsule 100 mg PO QAM Rx Instructions: LAST FILLED 11/19/23 FOR 90 CAPS/90 DAYS Discontinued ibuprofen 200 mg Tablet 600 mg PO Q8 PRN (Reason: Pain) methocarbamol 500 mg tablet 500 mg PO Q8H PRN (Reason: pain) Qty: 20 0RF Rx Instructions: UNKNOWN WHEN LAST FILLED Discharge Orders: Discharge Order (Routine); Ordered 04/09/24 Ordered By: Dottie Stover/Other Patient Handouts: Treating Gout Attacks, Alcohol Withdrawal: What to Expect, Eating to Prevent Gout Admission Data Admit Date/Time: 04/02/24 21:33 Attending Provider: Dottie Mireles I. Admit Provider: Caden Schuler Primary Care Provider: Nayeli Gutierrez Other Providers: Caden Schuler; [facility]; Vega Diamond; Camille Crenshaw; Karen Markham; More Senior; Keny Renee; Monet Castillo; Francisco Howe; Niyah Vicente; Sanju Carr; Jose Luis Sykes; Shanti Henson; Jose Luis Cooley; Basim Bajwa; Ryan Courtney; Rose Mary Mane Other Interventions: Discharge Summary Assessment (RN) Last Done: 04/09/24 16:17
[2024-04-10 05:17] LABS: Babesia microti DNA Not Detected (Not Detected)
== END 2024-04-09 17:20 | disposition home or self-care (01) | DRG 897 ==
LOC: ED 16:56 → 2N 21:33 → SUATTDRO 21:33 → 2N 22:22

== ENCOUNTER 2024-04-16 18:25 | Inpatient (IN) ==
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
[2024-04-16] MEDS: SODIUM CHLORIDE 0.9% 1,000 ML IV SCH (19:31)
[2024-04-16] MEDS: KETOROLAC TROMETHAMINE 15 MG/ML VIAL IV ONE (19:31)
[2024-04-16] MEDS: dexAMETHasone**PF** 10 MG/ML VIAL IV ONE (19:32)
[2024-04-16 19:45] LABS: Basophils # (auto) 0.09 K/uL (0.00-0.20); Basophils % (auto) 0.4 %; Eosinophils # (auto) 0.06 K/uL (0.00-0.50); Eosinophils % (auto) 0.3 %; Hematocrit (blood only) 37.4 % (42.0-52.0); Hemoglobin 12.2 g/dl (14.0-18.0); Immature Granulocytes # (auto) 0.41 K/uL (0.01-0.20); Immature Granulocytes % (auto) 1.9 %; Lymphocytes # (auto) 2.12 K/uL (1.20-3.40); Mean Corpuscular Hemoglobin 32.8 pg (25.0-34.0); Mean Corpuscular Hgb Conc 32.6 g/dL (32.0-36.0); Mean Corpuscular Volume 100.5 fL (80.0-100.0); Mean Platelet Volume 10.9 fL (9.4-12.4); Monocytes # (auto) 2.31 K/uL (0.11-0.59); Monocytes % (auto) 10.9 %; Neutrophils # (auto) 16.19 K/uL (1.40-6.50); Neutrophils % (auto) 76.5 %; Platelet Count 430 K/uL (130-400); RDW Coefficient of Variation 13.9 % (11.5-14.5); RDW Standard Deviation 51.6 fL (36.4-46.3); Red Blood Count 3.72 M/uL (4.70-6.10); White Blood Count 21.18 K/ul (4.8-10.8)
[2024-04-16 20:02] LABS: Alanine Aminotransferase 27 U/L (7-52); Albumin Globulin Ratio 1.3 (0.9-2); Albumin Level 3.9 gm/dl (3.4-5.0); Alkaline Phosphatase 87 U/L (34-104); Anion Gap 10 (3-11); Aspartate Aminotransferase 26 U/L (13-39); BUN Creatinine Ratio 16.9 (10-20); Bilirubin,Total 1.2 mg/dl (0.2-1.0); Blood Urea Nitrogen 13 mg/dl (6-23); Calcium 9.2 mg/dl (8.6-10.3); Carbon Dioxide 25 mmol/L (21-32); Chloride 104 mmol/L (98-107); Est GFR (African American) 129.7 ml/min; Est GFR (Non-African American) 111.9 ml/min; Globulin 3.1 gm/dl (2.5-4.0); Glucose 101 mg/dl (70-99(Fasting)); Potassium 3.7 mmol/L (3.5-5.1); Sodium 139 mmol/L (136-145); Uric Acid 8.4 mg/dl (2.6-7.2)
--- NOTE | 2024-04-16 20:08 | CT Scan Report ---
Exam(s): CT HEAD Without Contrast EXAM: CT Head Without Intravenous Contrast CLINICAL HISTORY: Reason for exam: headache, prior fall. TECHNIQUE: Axial computed tomography images of the head/brain without intravenous contrast. CTDI is 36.31 mGy and DLP is 547.75 mGy-cm. Automated exposure control was utilized for the study. A dose lowering technique was utilized adhering to the principles of ALARA. Mild motion artifact. COMPARISON: Head CT 02/10/22. FINDINGS: Brain: No mass effect or acute infarct. No acute hemorrhage. No abnormal density in the brain parenchyma. Ventricles: No hydrocephalus or midline shift. Bones/joints: No skull fracture. Soft tissues: No scalp hematoma. Visualized Sinuses: Clear. Mastoid air cells: No mastoid effusion. IMPRESSION: 1. No bleed, skull fracture, acute intracranial abnormality, or interval change. Electronically signed by: Gregoria Diaz M.D. 04/16/24 20:07 PM
[2024-04-16 20:16] LABS: Thyroid Stimulating Hormone 1.426 uIu/ml (0.300-4.500)
[2024-04-16 20:21] LABS: Prothrombin Time 11.2 Seconds (9.0-12.0)
[2024-04-16] MEDS: cefTRIAXone SODIUM 2,000 MG/50 ML BAG IV STA (20:24)
[2024-04-16] MEDS: SODIUM CHLORIDE 0.9% 1,000 ML IV ONE (20:24)
[2024-04-16] MEDS: MoRPHine SULFATE 2 MG/ML CARP IV STA (20:45)
--- NOTE | 2024-04-16 22:06 | Ultrasound Report ---
Exam(s): US VENOUS LEFT UPPER EXTREMITY EXAM: US Duplex Left Upper Extremity Veins CLINICAL HISTORY: Reason for exam: left arm swelling. TECHNIQUE: Real-time duplex ultrasound scan of the left upper extremity veins integrating B-mode two-dimensional vascular structure, Doppler spectral analysis, color flow Doppler imaging and compression. COMPARISON: No relevant prior studies available. FINDINGS: Deep veins: Unremarkable. No DVT in the internal jugular, subclavian, axillary, or brachial veins. The veins demonstrate normal color flow, are normally compressible, with normal phasic flow and/or augmentation response. Superficial veins: No thrombus. Soft tissues: No acute findings. IMPRESSION: 1. No DVT. Electronically signed by: Gregoria Diaz M.D. 04/16/24 22:05 PM
[2024-04-16] MEDS: DAPTOmycin 475 MG in SYRINGE 0 ML IV SCH (22:08)
--- NOTE | 2024-04-17 01:06 | History & Physical Report ---
Date of Service April 17, 2024 Assessment & Plan (1) Hand pain, left: Plan: 43-year-old male with past medical history significant for gout, GERD, depression, PTSD, anxiety, alcohol abuse and tobacco abuse comes because of left wrist pain. Initially also was somewhat hypotensive and tachycardic. In the ER received Decadron morphine and Toradol and fluids and antibiotics Dapto and Rocephin. Patient is somewhat drowsy now. Patient states last time he drank alcohol was 2 weeks ago. States he used to drink 12 pack of beer and also bottle seems radha daily. But when asked whether we should put him on alcohol withdrawal protocol he agreed to put him on alcohol withdrawal protocol. Denies any fevers. No chest pain or shortness of breath. Has some headache. Has cough. No runny nose. No sore throat. Yesterday had some chest discomfort that resolved. No shortness of breath. No nausea or abdominal pain. Normal bowel and bladder movements. Hemodynamics are okay. Left hand/wrist pain Swelling History of gout Recently treated for left knee gout Received Decadron and Toradol in the ER IV Toradol as needed Consult orthopedics in a.m. for further recommendations SIRS Leukocytosis and tachycardia Leukocytosis could be from recent steroid use for gout Empirically placed on Dapto and Rocephin in the ER which we will continue IV fluids Follow cultures Close monitor Alcoholism Patient is a heavy drinker States not have drinking for last 2 weeks but states okay to place on withdrawal protocol Staring on gabapentin withdrawal protocol with IV Ativan as needed Hold home gabapentin while getting protocol One dose of IV thiamine Continue home p.o. thiamine, folic acid and multivitamins Close monitor Possible sleep apnea Sleep study Depression PTSD Anxiety DVT prophylaxis SCDs for now Disposition Med/telemetry Full code. History of Present Illness Chief Complaint: Left wrist pain Primary Care Provider: Nayeli Gutierrez MD 43-year-old male with past medical history significant for gout, GERD, depression, PTSD, anxiety, alcohol abuse and tobacco abuse comes because of left wrist pain. Initially also was somewhat hypotensive and tachycardic. In the ER received Decadron morphine and Toradol and fluids and antibiotics Dapto and Rocephin. Patient is somewhat drowsy now. Patient states last time he drank alcohol was 2 weeks ago. States he used to drink 12 pack of beer and also bottle seems radha daily. But when asked whether we should put him on alcohol withdrawal protocol he agreed to put him on alcohol withdrawal protocol. Denies any fevers. No chest pain or shortness of breath. Has some headache. Has cough. No runny nose. No sore throat. Yesterday had some chest discomfort that resolved. No shortness of breath. No nausea or abdominal pain. Normal bowel and bladder movements. Hemodynamics are okay. Past medical history. As mentioned above Past surgical history. No surgical history on file Social history. Smokes 1 pack a day for 22 years. Drinks alcohol. Medical marijuana. Family history. Father had sleep apnea. Allergies Allergy/AdvReac Type Severity Reaction Status Date / Time No Known Allergies Allergy Verified 04/16/24 21:06 Home Medications Medication Instructions Recorded Confirmed Type acetaminophen 500 mg tablet 1,000 mg PO Q6H PRN Pain 01/12/23 04/16/24 History (Tylenol Extra Strength) omeprazole 20 mg capsule,delayed 20 mg PO DAILY PRN Acid Reflux 01/12/23 04/16/24 History release lidocaine 5 % topical patch 1 patch topical DAILY PRN Pain 02/07/23 04/16/24 History (Lidoderm) gabapentin 100 mg capsule 100 mg PO QAM 04/02/24 04/16/24 History gabapentin 600 mg tablet 600 mg PO HS 04/02/24 04/16/24 History cyanocobalamin (vitamin B-12) 100 100 mcg PO QAM 30 days #30 tabs 04/09/24 04/16/24 Rx mcg tablet (Vitamin B-12) folic acid 1 mg tablet 1 mg PO QAM 30 days #30 tabs 04/09/24 04/16/24 Rx multivitamin with folic acid 400 1 tab PO QAM 30 days #30 tabs 04/09/24 04/16/24 Rx mcg tablet (Daily-Mark (with folic acid)) thiamine HCl (vitamin B1) 100 mg 100 mg PO QAM 30 days #30 tabs 04/09/24 04/16/24 Rx tablet Past Med/Surg History Problem List (Updated 04/16/24 @ 19:28 by Manuel Gustafson MD) Hand pain, left (Acute) Swelling of left hand (Acute) Gout of left knee Knee effusion, left Alcoholic intoxication (Acute) Alcohol withdrawal syndrome (Acute) Pain, dental (Acute) Pain of left great toe (Acute) Pain, dental (Acute) Medical History (Updated 04/16/24 @ 19:28 by Manuel Gustafson MD) Alcoholism Gout Spinal stenosis GERD (gastroesophageal reflux disease) Surgical History Hx of knee surgery Family History Other No significant family history Social History Smoking Status: Current every day smoker Tobacco Type: Cigarettes Cigarettes Per Day: 20; Second Hand Exposure: Yes; Do You Dip or Chew Tobacco: No; Hx Alcohol Use: Yes Alcohol type: beer and hard liquor Hx Substance Use: No (No per patient) Preferred Language: Maldivian Communication Ability: Effective Music Professor Required: No Beliefs That Will Affect Care: None marital status: Single Current Living Situation: Alone current occupational status: unemployed Feels Safe at Home: Yes Safety Concerns: Feels Safe At This Time Assistive Devices: Cane, Denture - Upper, Denture - Lower and Glasses Review of Systems Review of Systems: All systems reviewed & are unremarkable except as noted in HPI & below Physical Exam Physical Exam: General- Not in distress Head- atraumatic Eyes- PERRL. ENT- oropharynx clear Neck- supple, no JVD. Lungs- clear to auscultation no wheezing or crackles Heart- regular rhythm; no murmur, no gallop. Abdomen- normal bowel sounds, soft, nontender, no distension Extremities- no pretibial edema, left wrist somewhat swollen and tender to palpation Neuro-somewhat drowsy ; PERRL, ; no facial palsy; no dysarthria; moves extremities. obeys simple commands Results & Data Results & Data Vital Signs (Past 12 Hours) Vital Signs Temp Pulse Pulse Resp BP BP Pulse Ox 04/16/24 23:03 72 16 97 04/16/24 22:09 19 95 04/16/24 21:00 69 16 96 04/16/24 21:00 100/62 04/16/24 20:48 86 22 96 04/16/24 20:44 119/73 04/16/24 20:28 113/76 04/16/24 20:28 113/76 04/16/24 19:24 90 19 96 04/16/24 19:15 90 17 97 04/16/24 19:14 93 H 20 111/72 98 04/16/24 19:06 105 H 04/16/24 19:03 111/72 04/16/24 18:36 37.2 C 120 H 20 95/56 L 97 O2 Del Method 04/16/24 23:03 Room Air 04/16/24 22:09 04/16/24 21:00 04/16/24 21:00 04/16/24 20:48 04/16/24 20:44 04/16/24 20:28 04/16/24 20:28 04/16/24 19:24 04/16/24 19:15 04/16/24 19:14 Room Air 04/16/24 19:06 04/16/24 19:03 04/16/24 18:36 Room Air Diagnostic Findings Laboratory Results WBC 21.18 K/ul (4.8-10.8) H 04/16/24 19:25 RBC 3.72 M/uL (4.70-6.10) L 04/16/24 19:25 Hgb 12.2 g/dl (14.0-18.0) L 04/16/24 19:25 Hct 37.4 % (42.0-52.0) L 04/16/24 19:25 MCV 100.5 fL (80.0-100.0) H 04/16/24 19:25 MCH 32.8 pg (25.0-34.0) 04/16/24 19:25 MCHC 32.6 g/dL (32.0-36.0) 04/16/24 19:25 RDW Std Deviation 51.6 fL (36.4-46.3) H 04/16/24 19:25 RDW Coeff of Dhiraj 13.9 % (11.5-14.5) 04/16/24 19:25 Plt Count 430 K/uL (130-400) H 04/16/24 19:25 MPV 10.9 fL (9.4-12.4) 04/16/24 19:25 Immature Gran % (Auto) 1.9 % 04/16/24 19:25 Neut % (Auto) 76.5 % 04/16/24 19:25 Lymph % (Auto) 10.0 % 04/16/24 19:25 Dodge % (Auto) 10.9 % 04/16/24 19:25 Eos % (Auto) 0.3 % 04/16/24 19:25 Baso % (Auto) 0.4 % 04/16/24 19:25 Neut # (Auto) 16.19 K/uL (1.40-6.50) H 04/16/24 19:25 Lymph # (Auto) 2.12 K/uL (1.20-3.40) 04/16/24 19:25 Dodge # (Auto) 2.31 K/uL (0.11-0.59) H 04/16/24 19:25 Eos # (Auto) 0.06 K/uL (0.00-0.50) 04/16/24 19:25 Baso # (Auto) 0.09 K/uL (0.00-0.20) 04/16/24 19:25 Immature Gran # (Auto) 0.41 K/uL (0.01-0.20) H 04/16/24 19:25 PT 11.2 Seconds (9.0-12.0) 04/16/24 19:25 INR 1.0 (0.9-1.1) 04/16/24 19:25 Sodium 139 mmol/L (136-145) 04/16/24 19:25 Potassium 3.7 mmol/L (3.5-5.1) 04/16/24 19:25 Chloride 104 mmol/L (98-107) 04/16/24 19:25 Carbon Dioxide 25 mmol/L (21-32) 04/16/24 19:25 Anion Gap 10 (3-11) 04/16/24 19:25 BUN 13 mg/dl (6-23) 04/16/24 19:25 Creatinine 0.77 mg/dl (0.6-1.4) 04/16/24 19:25 Est Cr Clr Drug Dosing Not Reportable 04/16/24 19:25 Est GFR ( Amer) 129.7 ml/min 04/16/24 19:25 Est GFR (Non-Af Amer) 111.9 ml/min 04/16/24 19:25 BUN/Creatinine Ratio 16.9 (10-20) 04/16/24 19:25 Glucose 101 mg/dl (70-99(Fasting)) H 04/16/24 19:25 Lactate 1.2 mmol/L (0.4-2.0) 04/16/24 19:25 Uric Acid 8.4 mg/dl (2.6-7.2) H 04/16/24 19:25 Calcium 9.2 mg/dl (8.6-10.3) 04/16/24 19:25 Magnesium 2.0 mg/dl (1.7-2.4) 04/16/24 19:25 Total Bilirubin 1.2 mg/dl (0.2-1.0) H 04/16/24 19:25 AST 26 U/L (13-39) 04/16/24 19:25 ALT 27 U/L (7-52) 04/16/24 19:25 Alkaline Phosphatase 87 U/L (34-104) 04/16/24 19:25 Total Protein 7.0 gm/dl (6.0-8.3) 04/16/24 19:25 Albumin 3.9 gm/dl (3.4-5.0) 04/16/24 19:25 Globulin 3.1 gm/dl (2.5-4.0) 04/16/24 19:25 Albumin/Globulin Ratio 1.3 (0.9-2) 04/16/24 19:25 Procalcitonin 0.14 ng/ml (0-0.5) 04/16/24 19:25 TSH 1.426 uIu/ml (0.300-4.500) 04/16/24 19:[address] 04/16/24 19:10 Exam(s): CT HEAD Without Contrast EXAM: CT Head Without Intravenous Contrast CLINICAL HISTORY: Reason for exam: headache, prior fall. TECHNIQUE: Axial computed tomography images of the head/brain without intravenous contrast. CTDI is 36.31 mGy and DLP is 547.75 mGy-cm. Automated exposure control was utilized for the study. A dose lowering technique was utilized adhering to the principles of ALARA. Mild motion artifact. COMPARISON: Head CT 02/10/22. FINDINGS: Brain: No mass effect or acute infarct. No acute hemorrhage. No abnormal density in the brain parenchyma. Ventricles: No hydrocephalus or midline shift. Bones/joints: No skull fracture. Soft tissues: No scalp hematoma. Visualized Sinuses: Clear. Mastoid air cells: No mastoid effusion. IMPRESSION: 1. No bleed, skull fracture, acute intracranial abnormality, or interval change. Electronically signed by: Gregoria Diaz M.D. 04/16/24 20:07 PM Extremity Venous Study 04/16/24 19:20 Exam(s): US VENOUS LEFT UPPER EXTREMITY EXAM: US Duplex Left Upper Extremity Veins CLINICAL HISTORY: Reason for exam: left arm swelling. TECHNIQUE: Real-time duplex ultrasound scan of the left upper extremity veins integrating B-mode two-dimensional vascular structure, Doppler spectral analysis, color flow Doppler imaging and compression. COMPARISON: No relevant prior studies available. FINDINGS: Deep veins: Unremarkable. No DVT in the internal jugular, subclavian, axillary, or brachial veins. The veins demonstrate normal color flow, are normally compressible, with normal phasic flow and/or augmentation response. Superficial veins: No thrombus. Soft tissues: No acute findings. IMPRESSION: 1. No DVT. Electronically signed by: Gregoria Diaz M.D. 04/16/24 22:05 PM ECG Additional Comments: ECG. Normal sinus rhythm with a rate of 86. No significant change was found. Code Status & VTE Plan VTE Prophylaxis Plan VTE Prophylaxis will be ordered: Yes
--- OUTSIDE RECORDS SUMMARY | 2024-04-17 01:45 | External Medical Summary | Summary of Care ---
Author Name Unknown Organization [facility] Address [address] [place] [address] Phone [phone] Care Team Providers [facility] Worker Name Role Phone Nayeli Gutierrez MD Primary Care Provid er Reason for Visit * Reason Onset Date Comments Hospital Follow-Up 04/10/2024 [facility] for [facility] Encounter Details Date Type Department Care Team ([facility] st Contact Info) Description 04/10/2024 Telephone Ancillary Department, [address] [address] Skylar Novak RN Hospital Follow-Up ([facility] for [facility]) Allergies No known active allergiesdocumented as of this encounter (statuses as of 04/11/2024) Medications Medication Sig Dispensed Refills Start Date [...] NOTES). 01/12/2023 Active Colchicine 0.6 MG Oral TabletIndications: [...] MG Oral Capsule (Neurontin)Indicat ions:Paresthesia Take 1 capsule by mouth in the morning 90 Capsule 3 02/15/2024 Active documented as of this encounter (statuses as of 04/11/2024) Active Problems Problem Noted Date Diagnosed Date Alcohol abuse, in remission 10/22/2023 Gastroesophageal reflux disease 02/12/2023 Gout 02/12/2023 DDD (degenerative disc disease), cervical 2022 Acute pain of right shoulder 02/06/2023 Severe episode of recurrent major depressive disorder, without psychotic features 12/14/2020 PTSD (post-traumatic stress disorder) 12/14/2020 Anxiety 12/14/2020 documented as of this encounter (statuses as of 04/11/2024) Resolved Problems Problem Noted Date Diagnosed Date Resolved Date Opioid abuse, in remission 12/14/2020 0 02/20/2022 documented as of this encounter (statuses as of 04/11/2024) Immunizations Name Administration Dates Next Due TDAP [...] money to get more. Never true 11/19/2023 Childcare Answer Date Recorded Do you feel overwhelmed with taking care of a child, family member or friend? No 11/19/2023 Does your family need help f inding childcare? (Household - for ages 0-17 years) Not on file 11/19/2023 Clothing Answer Date Recorded Have you been unable to get clothing when it was really needed? No 11/19/2023 Is your family able to get c lothes or diapers when needed? (Household - for ages 0-17 years) Not on file 11/19/2023 Personal Safety Answer Date Recorded Do you feel unsafe or have concerns for your saf ety? No 11/19/2023 Do you have concerns for you r family's safety? (Household - for ages 0-17 years) Not on file 11/19/2023 Utilities Answer Date Recorded Do you have trouble paying y our heating, water, or electric bill? Yes 11/19/2023 Is your family able to pay t he heat, water, or electric bill? (Household - for ages 0-17 years) Not on file 11/19/2023 Does your family have access to good internet? (Household - for ages 0-17 years) Not on file 11/19/2023 Employment Status Answer Date Recorded Are you unemployed or without regular income? No 11/19/2023 Does the household have a re lar source of income? (Household - for ages 0-17 years) Not on file 11/19/2023 Social Connections Answer Date Recorded How often do you feel lonely or isolated from th ose around you? Never 11/19/2023 Financial Resource Strain Answer Date R ecorded Do you have any trouble payi ng for your medications, or do you think you might in the future? No 11/19/2023 Does your family have troubl e paying for medicine? (Household - for ages 0-17 years) Not on file 11/19/2023 Transportation Needs Answer Date Record ed READ ONLY Do you have troubl e getting a ride to medical visits or work? Often True 11/19/2023 Does your family have a hard time getting a ride to doctors visits? (Household - for ages 0-17 years) Not on file 11/19/2023 Has lack of transportation k ept you from medical appointments, meetings, work, or from getting things needed for daily living? Check all that apply. (Adult - for ages 18 years and over) Not on file 11/19/2023 Do you (or your family) have trouble finding or paying for a ride (transportation)? (Household - for ages 0-17 years) Not on file 11/19/2023 Housing Stability Answer Date Recorded Do you currently live in a s helter or have no steady place to sleep at night? Yes 11/19/2023 READ ONLY Do you think you a re at risk of becoming homeless? Yes 11/19/2023 Does your family worry about paying for your home or becoming homeless? (Household - for ages 0-17 years) Not on file 0 11/19/2023 Are you homeless or worried that you might be in the future? (Adult - for ages 18 years and over) Not on file Are you (or your family) doyle eless or worried that you might be in the future? (Household - for ages 0-17 years) Not on file Food Insecurity Answer Date Recorded Do you need food for this week? No 11/19/2023 Are you able to get enough f ood for your family? (Household - for ages 0-17 years) Not on file 11/19/2023 Does your family need food t his week? (Household - for ages 0-17 years) Not on file 11/19/2023 Do you always have enough fo od for your family? (Household - for ages 0-17 years) Not on file 11/19/2023 Sex and Gender Information Value Date Recorded Sex Assigned at Male 02/19/2022 11:36 PM EDT Gender Identity Male 02/19/2022 11:36 PM EDT Sexual Orientation Straight 02/19/2022 11 :36 PM EDT Job Start Date Occupation Industry Not on file Not on file Not on file documented as of this encounter Miscellaneous Notes * Telephone Encounter - Skylar Novak RN - 04/11/2024 4:21 PM EDT Attempted Phone Call Second Attempt Call Outcome myG * Telephone Encounter - Skylar Novak RN - 04/11/2024 8:56 AM EDT MYG was Last read by Faye Cotton at 8:44 AM on 04/11/2024. Im unsure who Faye is, but I will try toreach patient again today. * Telephone Encounter - Skylar Novak RN - 04/10/2024 2:16 PM EDT Transitions of Care Note Reason for Referral:Recent Admission Phone visit for follow up: andreia Admitted to:[facility], Date: 04.02.24 Discharged to: home, Date: 04.09.24 Diagnosis driving hospitalization: Alcohol withdrawal Gout flare, left knee Acute on chronic anemia Medications: per hospital discharge New cyanocobalamin (vitamin B-12) [Vitamin B-12] 100 mcg Tablet 100 mcg PO QAM 30 Days Qty: 30 0RF prednisone 20 mg Tablet 20 mg PO QAM 4 Days Qty: 4 0RF thiamine HCl (vitamin B1) 100 mg Tablet 100 mg PO QAM 30 Days Qty: 30 0RF folic acid 1 mg Tablet 1 mg PO QAM 30 Days Qty: 30 0RF multivitamin with folic acid [Daily-Mark (with folic acid)] 400 mcg Tablet 1 tab PO QAM 30 Days Qty: 30 0RF oxycodone 5 mg tablet 5 mg PO TID PRN (Reason: pain, severe) Qty: 12 0RF Discontinued ibuprofen 200 mg Tablet 600 mg PO Q8 PRN (Reason: Pain) methocarbamol 500 mg tablet 500 mg PO Q8H PRN (Reason: pain) Qty: 20 0RF Rx Instructions: UNKNOWN WHEN LAST FILLED Per hospital discharge : Resources provided for outpatient rehab Patient reports drinking 1 L of gin or radha daily along with 12 pack of beer. Last drink was 04/02/2024 AM. Hb stable in 10s Possible LILIANA: Get sleep study Attempted Phone Call First Attempt Home phone had restrictions and would not accept my call. 2nd Attempt I will send a [employer] message. Call Outcome Left Voicemail/Message Skylar Novak RN documented in this encounter Plan of Treatment Upcoming Encounters Date Type Department Care Team (Late st Contact Info) Description 04/15/2024 2:00 PM EDT Office Visit [facility] [address] [place] [address] Nayeli Gutierrez MD [address] [address] Health Maintenance Due Date Last Done Comments Lipid Panel 1981 Pneumococcal Vaccine: Pediat rics (0 to 5 Years) and At-Risk Patients (6 to 64 Years) (1 of 2 - PCV) 1987 Hepatitis B Vaccine (1 of 3 - 19+ 3-dose series) 2000 COVID-19 Vaccine (1 - 2022-2 4 season) 2023 Influenza Vaccine (FLU shot) (#1) 2024 Depression Monitoring 12/31/2024 01/01/2024 DTaP,Tdap,and Td Vaccines (2 - Td or Tdap) 09/30/2031 09/30/2021 HPV (Gardasil) Vaccine Aged Out No lo nger eligible based on patient's age to complete this topic MENINGOCOCCAL (MENACTRA/MENVEO) Aged Out No longer eligible based on patient's age to complete this topic documented as of this encounter Medical Devices Not on filedocumented as of this encounter Care Teams [facility] Worker Relationship Specialty Start Date End Date Nayeli Gutierrez MD [address] [address] PCP - General Family Medicine 12/14/20 documented as of this encounter
[2024-04-17] MEDS ORDERED: LORazepam 2 MG in SYRINGE 1 ML IV PRN (01:54)
[2024-04-17] MEDS ORDERED: NITROGLYCERIN SL 0.4 MG/TAB TAB SL PRN (01:54)
[2024-04-17] MEDS ORDERED: ONDANSETRON INJ 2 MG/ML 2 ML VIAL IV PRN (01:54)
[2024-04-17] MEDS ORDERED: LIDOCAINE 5% 1 PATCH TD PRN (01:54)
[2024-04-17] MEDS ORDERED: GABAPENTIN 1200MG ALCOHOL WITHDRAWAL LOAD PO STA (01:54)
[2024-04-17] MEDS ORDERED: LORazepam 3 MG in SYRINGE 1.5 ML IV PRN (01:54)
[2024-04-17] MEDS ORDERED: Ativan IV Alcohol Withdrawal--Active Protocol IV PRN (01:54)
[2024-04-17] MEDS ORDERED: LORazepam 1 MG in SYRINGE 0.5 ML IV PRN (01:54)
[2024-04-17] MEDS: KETOROLAC TROMETHAMINE 15 MG/ML VIAL IV PRN (02:20)
[2024-04-17] MEDS: SODIUM CHLORIDE 0.9% 1,000 ML IV SCH (02:22)
[2024-04-17] MEDS: THIAMINE HCL 100 MG in SYRINGE 9 ML IV STA (02:23)
[2024-04-17] MEDS: GABAPENTIN 600 MG TAB PO ONE (02:23)
[2024-04-17] MEDS: HYDROmorphone INJ 0.5 MG/0.5 ML SYR IV PRN (03:06)
--- NOTE | 2024-04-17 06:52 | XRay Report ---
XR wrist LT min 3V routine, XR hand LT min 3V routine CLINICAL HISTORY: pain and swelling TECHNIQUE: 4 views of the left wrist and 3 views of left hand were obtained. Comparison: None available at the time of this dictation. FINDINGS: There is no evidence of an acute fracture. Mild degenerative changes are seen most prominent at the m etacarpal bases. No soft tissue abnormality is seen. IMPRESSION: No evidence of acute osseous injury. ACT 112: Negative or not required by law. Electronically signed by: Ryne Valerio M.D. 04/17/2024 6:50 AM
[2024-04-17 07:24] LABS: Basophils # (auto) 0.05 K/uL (0.00-0.20); Basophils % (auto) 0.2 %; Hemoglobin 11.1 g/dl (14.0-18.0); Immature Granulocytes # (auto) 0.28 K/uL (0.01-0.20); Immature Granulocytes % (auto) 1.2 %; Lymphocytes # (auto) 1.79 K/uL (1.20-3.40); Lymphocytes % (auto) 7.8 %; Mean Corpuscular Hemoglobin 32.9 pg (25.0-34.0); Mean Corpuscular Hgb Conc 32.6 g/dL (32.0-36.0); Mean Corpuscular Volume 100.9 fL (80.0-100.0); Mean Platelet Volume 11.3 fL (9.4-12.4); Monocytes # (auto) 1.24 K/uL (0.11-0.59); Monocytes % (auto) 5.4 %; Neutrophils # (auto) 19.53 K/uL (1.40-6.50); Neutrophils % (auto) 85.4 %; Platelet Count 404 K/uL (130-400); RDW Coefficient of Variation 13.7 % (11.5-14.5); RDW Standard Deviation 51.2 fL (36.4-46.3); Red Blood Count 3.37 M/uL (4.70-6.10); White Blood Count 22.89 K/ul (4.8-10.8)
[2024-04-17 07:41] LABS: Calcium 8.6 mg/dl (8.6-10.3); Creatinine Clr Calc Pharmacy 173.2 ml/min; Est GFR (African American) 142.8 ml/min; Est GFR (Non-African American) 123.2 ml/min; Magnesium 2.2 mg/dl (1.7-2.4)
[2024-04-17] MEDS: MULTIVITAMIN TAB PO SCH (08:17)
[2024-04-17] MEDS: FOLIC ACID 1 MG TAB PO SCH (08:18)
[2024-04-17] MEDS: CYANOCOBALAMIN (B-12) 100 MCG TABLET PO SCH (08:18)
[2024-04-17] MEDS: THIAMINE HCL 100 MG TAB PO SCH (08:18)
[2024-04-17] MEDS: GABAPENTIN 600 MG TAB PO SCH ×2 (09:07→20:48)
--- NOTE | 2024-04-17 11:44 | Electrocardiogram Report ---
Test Reason : Blood Pressure : */* mmHG Vent. Rate : 86 BPM Atrial Rate : 86 BPM P-R Int : 150 ms QRS Dur : 76 ms QT Int : 358 ms P-R-T Axes : 33 -18 2 degrees QTcB Int : 428 ms Normal sinus rhythm Normal ECG When compared with ECG of 02-Apr-2024 17:15, No significant change was found Confirmed by Turner Wilson ([id number]) on 04/17/2024 11:44:51 AM Referred By: REFERRED SELF Confirmed By: Turner Wilson
--- NOTE | 2024-04-17 13:42 | Communication Note ---
Date of Service: April 17, 2024 Patient was seen and examined at bedside. 43-year-old male with PMH of gout, GERD, depression, PTSD, anxiety, alcohol abuse and tobacco abuse presented to the ED 04/16 with complaint of left wrist pain. At presentation, he was somewhat hypotensive and tachycardic which got resolved with use of a Decadron/morphine/Toradol/fluids/antibiotics [daptomycin and Rocephin] in the ED. He was also noted to be drowsy at ED. He reported his last drink was 2 weeks ago [employer]. Patient denies any febrile illness, sore throat or chest pain or cough. Reports he had been eating okay and moving bowels okay prior to presentation. Denied any pain or burning with passing urine. He is being managed for the following: Joint pain Left hand/wrist pain Possible gout attack Patient was recently treated for left knee gout. Patient presented with left wrist swelling/pain along with other left elbow/ankle/knee pain but no swelling/erythema appreciated Patient is supposed to take allopurinol at home, does not take. Per outpatient chart review 04/17, he takes allopurinol 100 mg daily. Left upper extremity imaging reviewed. Will continue with steroids and Toradol, follow clinically improvement.Famotidine while on a steroid Continue with empiric antibiotics daptomycin and Rocephin until blood culture negative for 48 hours. Orthopedics consulted, await recommendation. Possible metabolic encephalopathy Alcohol abuse: pt is a heavy drinker, denies alc use since 2 wks ago [employer]. Patient noted to be drowsy at presentation, was hypotensive and tachycardic as well. Follow blood culture, send urine tox screen. CT head with no acute finding Patient with improved mentation currently. Patient has alcohol history, denies drinking any alcohol 2 weeks [employer]. Currently maintain ERICA S protocol, continue to monitor. SIRS positive: Leukocytosis and tachycardia at presentation. leukocytosis can be due to recent steroid use. Procalcitonin was negative. Patient denied any febrile illness or cough or acute changes in his bowel or bladder habits at presentation. Follow blood culture. Closely monitor. Possible sleep apnea: Sleep study as an outpatient. Depression, PTSD, Anxiety: stable, not on medications. DVT prophylaxis: SCDs for now Disposition: Med/telemetry Full code. For detailed information on the patient, reported today's H&P note.
[2024-04-17] MEDS: FAMOTIDINE 20 MG TAB PO SCH (14:55)
[2024-04-17] MEDS: predniSONE 20 MG TAB PO SCH (14:55)
--- NOTE | 2024-04-17 15:02 | Orthopedic Consultation ---
Date of Consultation April 17, 2024 Assessment & Plan (1) Swelling of left hand: I suspect the patient has a gouty flare of the left wrist. Would recommend ice and elevation. I applied an Darshan bandage to the left hand and wrist for compression. Encouraged him to do gentle range of motion of the fingers and wrist as tolerated. He is on prednisone and Toradol which I believe is appropriate. Continue gout treatment as well. There is no evidence of any type of septic joint or tenosynovitis or cellulitis. Will continue to follow and reevaluate tomorrow. Findings were discussed with Dr. Mathew. If symptoms persist or worsen may consider aspiration of the joint or even an MRI of the left wrist. In the meantime if symptoms continue to improve with gout treatment and NSAIDs then benefits outweigh the risks of the joint aspiration. No plans for surgical intervention at this time. May have a regular diet. Patient is in agreement with the current treatment plan. He may use his hand as tolerated for light daily activities. Darshan bandage for comfort. All questions were answered today. Supervising Physician Co-Signing Physician Notes I saw and examined the patient, reviewed his chart and imaging, formulated the plan and agree with the note. Low suspicion for septic wrist. Appears to be gout. Risks of aspiration outweight benefits. Recommend medical treatment for gout. Follow-up as needed. History of Present Illness Reason for Consultation: Left wrist pain and swelling times a few days Attending Physician: Rose Mary Mane MD History of Present Illness Patient was readmitted to [facility] last evening after presenting to the emergency room complaining of "his whole body hurting, Especially his left wrist". He was admitted recently approximately [address] [facility] for left knee pain and possible sepsis. He had an aspiration of his left knee which was negative for any bacteria growth and positive for mono urate sodium crystals suggestive of gout. He was placed on gout treatment. He was discharged on steroids. He states 2 days ago he stopped the steroids and his "whole body blew up". He states that this has happened before when he stopped prednisone. He states that prior to that a few days before he had some sinus stuff and "felt like his head was hollow". He did develop some tingling and numbness in his right hand but that has since resolved. He also states about a month ago he had bilateral swelling of his elbows which is also resolved. He states that the right shoulder and wrist have improved significantly. The left wrist continues to be swollen and the left shoulder is sore. He states that since yesterday he is actually noticing a lot of improvement with regards to diminished pain and resolution of swelling although is hand continues to be swollen. He denies any injury. He is left- hand dominant. He has been elevating his hand. He has been using it for daily activities as he has been able. He states he still has trouble with trying to " open things". He denies any skin abrasions or open wounds. He states the swelling is less but he still continues to have pain. He has been on IV antibiotics, blood cultures have been obtained. He is also restarted on prednisone and Toradol. He states that he does know that he gets gout flares. He does feel similar to that in his left wrist. He did have allopurinol to take but has not been taking it as the last time he took it he could got a "gout attack". Allergies Allergy/AdvReac Type Severity Reaction Status Date / Time No Known Allergies Allergy Verified 04/16/24 21:06 Home Medications Medication Instructions Recorded Confirmed Type acetaminophen 500 mg tablet 1,000 mg PO Q6H PRN Pain 01/12/23 04/16/24 History (Tylenol Extra Strength) omeprazole 20 mg capsule,delayed 20 mg PO DAILY PRN Acid Reflux 01/12/23 04/16/24 History release lidocaine 5 % topical patch 1 patch topical DAILY PRN Pain 02/07/23 04/16/24 History (Lidoderm) gabapentin 100 mg capsule 100 mg PO QAM 04/02/24 04/16/24 History gabapentin 600 mg tablet 600 mg PO HS 04/02/24 04/16/24 History cyanocobalamin (vitamin B-12) 100 100 mcg PO QAM 30 days #30 tabs 04/09/24 04/16/24 Rx mcg tablet (Vitamin B-12) folic acid 1 mg tablet 1 mg PO QAM 30 days #30 tabs 04/09/24 04/16/24 Rx multivitamin with folic acid 400 1 tab PO QAM 30 days #30 tabs 04/09/24 04/16/24 Rx mcg tablet (Daily-Mark (with folic acid)) thiamine HCl (vitamin B1) 100 mg 100 mg PO QAM 30 days #30 tabs 04/09/24 04/16/24 Rx tablet Patient History Medical History Alcoholism Gout Spinal stenosis GERD (gastroesophageal reflux disease) Surgical History Hx of knee surgery Family History Other No significant family history Social History Smoking Status: Current every day smoker Tobacco Type: Cigarettes Cigarettes Per Day: 20; Second Hand Exposure: Yes; Do You Dip or Chew Tobacco: No; Hx Alcohol Use: Yes Alcohol type: beer and hard liquor Hx Substance Use: No (No per patient) Preferred Language: Portuguese 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 No erythema or warmth. Full passive range of motion of the left shoulder reveals some mild discomfort with overhead type activity. His strength is maintained. He has full elbow and forearm range of motion without discomfort. He has noticeable soft tissue edema on the dorsum of his left hand into his fingers. He is able to fully extend his fingers and hold against resistance. There is no increased discomfort with passive extension or flexion of his fingers. He can flex his fingers but is unable to make a full fist due to the edema in the MCPs. He has no fluctuance or fluid collection. There is no erythema. Mild warmth to the dorsum of his left hand. He may have a trace effusion to the left wrist joint but that is a little hard to appreciate with the overlying edema. He is nontender with palpation of the DRUJ. He has tenderness with palpation of the wrist joint but tolerates passive flexion, extension radial and ulnar deviation. He has normal sensation throughout the left hand. Capillary fill is brisk. Distal pulses are 1+. He is able to approximate his thumb to all of his fingers. Has discomfort with active extension and flexion of his wrist. Results & Data Vital Signs (Past 12 Hours) Vital Signs Temp Pulse Pulse Resp BP Pulse Ox O2 Del Method 04/17/24 11:47 36.7 C 69 18 107/59 L 97 Room Air 04/17/24 07:50 36.4 C 56 L 18 110/63 96 Room Air 04/17/24 07:10 58 L 04/17/24 03:15 Room Air 04/17/24 03:13 76 Laboratory Results 04/17/24 04/16/24 Range/Units 06:44 19:25 WBC 22.89 H 21.18 H (4.8-10.8) K/ul RBC 3.37 L 3.72 L (4.70-6.10) M/uL Hgb 11.1 L 12.2 L (14.0-18.0) g/dl Hct 34.0 L 37.4 L (42.0-52.0) % MCV 100.9 H 100.5 H (80.0-100.0) fL MCH 32.9 32.8 (25.0-34.0) pg MCHC 32.6 32.6 (32.0-36.0) g/dL RDW Std Deviation 51.2 H 51.6 H (36.4-46.3) fL RDW Coeff of Dhiraj 13.7 13.9 (11.5-14.5) % Plt Count 404 H 430 H (130-400) K/uL MPV 11.3 10.9 (9.4-12.4) fL Immature Gran % (Auto) 1.2 1.9 % Neut % (Auto) 85.4 76.5 % Lymph % (Auto) 7.8 10.0 % Ida % (Auto) 5.4 10.9 % Eos % (Auto) 0.0 0.3 % Baso % (Auto) 0.2 0.4 % Neut # (Auto) 19.53 H 16.19 H (1.40-6.50) K/uL Lymph # (Auto) 1.79 2.12 (1.20-3.40) K/uL Ida # (Auto) 1.24 H 2.31 H (0.11-0.59) K/uL Eos # (Auto) 0.00 0.06 (0.00-0.50) K/uL Baso # (Auto) 0.05 0.09 (0.00-0.20) K/uL Immature Gran # (Auto) 0.28 H 0.41 H (0.01-0.20) K/uL PT 11.2 (9.0-12.0) Seconds INR 1.0 (0.9-1.1) Sodium 139 139 (136-145) mmol/L Potassium 4.0 3.7 (3.5-5.1) mmol/L Chloride 108 H 104 (98-107) mmol/L Carbon Dioxide 24 25 (21-32) mmol/L Anion Gap 7 10 (3-11) BUN 11 13 (6-23) mg/dl Creatinine 0.61 0.77 (0.6-1.4) mg/dl Est Cr Clr Drug Dosing 173.2 Not Reportable Est GFR ( Amer) 142.8 129.7 ml/min Est GFR (Non-Af Amer) 123.2 111.9 ml/min BUN/Creatinine Ratio 18.0 16.9 (10-20) Glucose 140 H 101 H (70-99(Fasting)) mg/dl Lactate 1.2 (0.4-2.0) mmol/L Uric Acid 8.4 H (2.6-7.2) mg/dl Calcium 8.6 9.2 (8.6-10.3) mg/dl Magnesium 2.2 2.0 (1.7-2.4) mg/dl Total Bilirubin 1.2 H (0.2-1.0) mg/dl AST 26 (13-39) U/L ALT 27 (7-52) U/L Alkaline Phosphatase 87 (34-104) U/L Total Protein 7.0 (6.0-8.3) gm/dl Albumin 3.9 (3.4-5.0) gm/dl Globulin 3.1 (2.5-4.0) gm/dl Albumin/Globulin Ratio 1.3 (0.9-2) Procalcitonin 0.14 (0-0.5) ng/ml TSH 1.426 (0.300-4.500) uIu/ml Micro: Blood cultures obtained and currently pending. Diagnostic Findings Exam(s): US VENOUS LEFT UPPER EXTREMITY EXAM: US Duplex Left Upper Extremity Veins CLINICAL HISTORY: Reason for exam: left arm swelling. TECHNIQUE: Real-time duplex ultrasound scan of the left upper extremity veins integrating B-mode two-dimensional vascular structure, Doppler spectral analysis, color flow Doppler imaging and compression. COMPARISON: No relevant prior studies available. FINDINGS: Deep veins: Unremarkable. No DVT in the internal jugular, subclavian, axillary, or brachial veins. The veins demonstrate normal color flow, are normally compressible, with normal phasic flow and/or augmentation response. Superficial veins: No thrombus. Soft tissues: No acute findings. IMPRESSION: 1. No DVT. XR wrist LT min 3V routine, XR hand LT min 3V routine CLINICAL HISTORY: pain and swelling TECHNIQUE: 4 views of the left wrist and 3 views of left hand were obtained. Comparison: None available at the time of this dictation. FINDINGS: There is no evidence of an acute fracture. Mild degenerative changes are seen most prominent at the metacarpal bases. No soft tissue abnormality is seen. IMPRESSION: No evidence of acute osseous injury. XR wrist LT min 3V routine, XR hand LT min 3V routine CLINICAL HISTORY: pain and swelling TECHNIQUE: 4 views of the left wrist and 3 views of left hand were obtained. Comparison: None available at the time of this dictation. FINDINGS: There is no evidence of an acute fracture. Mild degenerative changes are seen most prominent at the metacarpal bases. No soft tissue abnormality is seen.
[2024-04-17 15:49] LABS: Amphetamines+Metham, Urine Neg (Neg); Barbiturates, Urine Neg (Neg); Benzodiazepine, Urine Pos (Neg); Cocaine, Urine Neg (Neg); Fentanyl, Urine Neg (Neg); MDMA (Ecstacy), Urine Neg (Neg); Marijuana, Urine Pos (Neg); Methadone, Urine Neg (Neg); Opiate, Urine Neg (Neg); Phencyclidine, Urine Neg (Neg)
[2024-04-17] MEDS: HYDROmorphone HCL 2 MG TAB PO PRN (19:18)
[2024-04-17] MEDS: cefTRIAXone SODIUM 2,000 MG/50 ML BAG IV SCH (20:42)
[2024-04-18 06:20] LABS: Hematocrit (blood only) 31.5 % (42.0-52.0); Hemoglobin 10.2 g/dl (14.0-18.0); Mean Corpuscular Hemoglobin 32.8 pg (25.0-34.0); Mean Corpuscular Hgb Conc 32.4 g/dL (32.0-36.0); Mean Corpuscular Volume 101.3 fL (80.0-100.0); Mean Platelet Volume 11.7 fL (9.4-12.4); Platelet Count 415 K/uL (130-400); RDW Standard Deviation 51.6 fL (36.4-46.3); Red Blood Count 3.11 M/uL (4.70-6.10); White Blood Count 21.16 K/ul (4.8-10.8)
[2024-04-18 06:33] LABS: BUN Creatinine Ratio 16.2 (10-20); Calcium 8.6 mg/dl (8.6-10.3); Creatinine Clr Calc Pharmacy 142.7 ml/min; Est GFR (African American) 131.9 ml/min; Est GFR (Non-African American) 113.8 ml/min; Magnesium 2.3 mg/dl (1.7-2.4); Phosphorus 3.3 mg/dl (2.5-4.9); Potassium 4.2 mmol/L (3.5-5.1)
--- NOTE | 2024-04-18 09:42 | Orthopedic Progress Note ---
Date of Service April 18, 2024 Assessment & Plan (1) Swelling of left hand: Plan: Edema of his left hand is improved. He should continue the Darshan bandage as needed for compression. He can loosen or rewrap as needed for comfort. He can do active range of motion of his fingers, wrist and forearm of the left upper extremity. May do activities as tolerated. I suspect that this is gout flare as it is improving each day. Encouraged elevation and ice as needed. Orthopedics will sign off for now. He can follow-up on an as-needed basis. Would recommend continuation of NSAIDs and gout treatment. Discussed findings with Dr. Mathew. Patient understands and agrees with the plan. Admission and Anticipated Discharge Date Admission Date: April 17, 2024 Subjective Patient states that he is doing better today. His hand is moving more freely. He still has some swelling and discomfort but it is improved. He thinks that the Darshan bandages helped. Physical Exam Musculoskeletal: Exam of the left hand: The Darshan bandage was removed. He still has some dorsal edema but it is much less tender today. He has the ability to almost fully flex his hand which she was unable to do yesterday. He still has a little tenderness at the wrist joint as well as the dorsum of his hand. There is no edema into his forearm he has full pronation supination. He can do active flexion and extension much better today than yesterday. Stable to approximate the thumb to all of his fingers. Distal pulses are 1+. Mild warmth but no erythema. No fluid collections or fluctuance. No effusion to the wrist joint. Results & Data Vital Signs (Past 12 Hours) Vital Signs Temp Pulse Pulse Pulse Resp BP Pulse Ox 04/18/24 07:56 36.4 C L 63 18 124/75 97 04/18/24 07:15 65 04/18/24 02:59 36.4 C L 66 18 129/82 94 04/18/24 00:53 36.5 C 71 18 113/65 96 04/17/24 22:15 80 O2 Del Method 04/18/24 07:56 Room Air 04/18/24 07:15 04/18/24 02:59 Room Air 04/18/24 00:53 Room Air 04/17/24 22:15 Laboratory Results 04/18/24 04/17/24 Range/Units 05:50 15:00 WBC 21.16 H (4.8-10.8) K/ul RBC 3.11 L (4.70-6.10) M/uL Hgb 10.2 L (14.0-18.0) g/dl Hct 31.5 L (42.0-52.0) % MCV 101.3 H (80.0-100.0) fL MCH 32.8 (25.0-34.0) pg MCHC 32.4 (32.0-36.0) g/dL RDW Std Deviation 51.6 H (36.4-46.3) fL RDW Coeff of Dhiraj 14.0 (11.5-14.5) % Plt Count 415 H (130-400) K/uL MPV 11.7 (9.4-12.4) fL Sodium 140 (136-145) mmol/L Potassium 4.2 (3.5-5.1) mmol/L Chloride 109 H (98-107) mmol/L Carbon Dioxide 23 (21-32) mmol/L Anion Gap 8 (3-11) BUN 12 (6-23) mg/dl Creatinine 0.74 (0.6-1.4) mg/dl Est Cr Clr Drug Dosing 142.7 ml/min Est GFR ( Amer) 131.9 ml/min Est GFR (Non-Af Amer) 113.8 ml/min BUN/Creatinine Ratio 16.2 (10-20) Glucose 179 H (70-99(Fasting)) mg/dl Calcium 8.6 (8.6-10.3) mg/dl Phosphorus 3.3 (2.5-4.9) mg/dl Magnesium 2.3 (1.7-2.4) mg/dl Urine Opiates Screen Neg (Neg) Ur Methadone, Qual Neg (Neg) Urine Fentanyl Screen Neg (Neg) Urine Barbiturates Neg (Neg) Ur Phencyclidine (PCP) Neg (Neg) U Amphetamin/Meth Scrn Neg (Neg) MDMA (Ecstasy) Screen Neg (Neg) U OH-Alprazolam Confrm Pending U Benzodiazepines Scrn Pos H (Neg) 7-Amino Clonazepam Pending Ur Nordiazepam Confirm Pending U OH-ethylflurazepam Pending U Lorazepam Cnf GC/MS Pending U Oxazepam Confm GC/MS Pending Ur Temazepam Confirm Pending U OH-Triazolam Confirm Pending U OH-Midazolam Confirm Pending Ur Cocaine Metabolite Neg (Neg) U Marijuana (THC) Screen Pos H (Neg) U Marijuana THC Carboxy Pending Drug Screen Comment Pending
--- NOTE | 2024-04-18 14:13 | Hospitalist Progress Note ---
Date of Service April 18, 2024 Assessment & Plan (1) Hand pain, left: Plan 43-year-old male with PMH of gout, GERD, depression, PTSD, anxiety, alcohol abuse and tobacco abuse presented to the ED 04/16 with complaint of left wrist pain. At presentation, he was somewhat hypotensive and tachycardic which got resolved with use of a Decadron/morphine/Toradol/fluids/antibiotics [daptomycin and Rocephin] in the ED. He was also noted to be drowsy at ED. 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 Patient denies any febrile illness, sore throat or chest pain or cough. Reports he had been eating okay and moving bowels okay prior to presentation. Denied any pain or burning with passing urine. He is being managed for the following: Joint pain Left hand/wrist pain Possible gout attack Patient was recently treated for left knee gout. Patient presented with left wrist swelling/pain along with other left elbow/ankle/knee pain but no swelling/erythema appreciated Patient is supposed to take allopurinol at home, does not take. Per outpatient chart review 04/17, he takes allopurinol 100 mg daily. Left upper extremity imaging reviewed. Will continue with steroids and Toradol, gradual improvement w/ swelling/rom/tenderness noted. Famotidine while on a steroid Continue with empiric antibiotics daptomycin and Rocephin until blood culture negative for 48 hours. Orthopedics consulted, appreciate recommendation. 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 Patient noted to be drowsy at presentation, was hypotensive and tachycardic as well. Follow blood culture, follow urine tox screen. CT head with no acute finding Patient with improved mentation now. Patient has alcohol history, denies drinking any alcohol 2 weeks [employer]IOR [employer] ARCHITECT. Currently maintain ERICA S protocol, continue to monitor. SIRS positive: Leukocytosis and tachycardia at presentation. leukocytosis can be due to recent steroid use. Procalcitonin was negative. Patient denied any febrile illness or cough or acute changes in his bowel or bladder habits at presentation. Follow blood culture. Closely monitor. Possible sleep apnea: Sleep study as an outpatient. Depression, PTSD, Anxiety: stable, not on medications. DVT prophylaxis: SCDs for now Disposition: Med/telemetry Full code. Admission and Anticipated Discharge Date Admission Date: April 17, 2024 Subjective Patient was seen and examined at bedside. Patient was lying in bed, on room air, NAD, resting comfortably. Patient reports feeling better today, reports improvement in his swelling and pain at the left wrist. He reports eating okay and moving bowels okay, denies other review of symptoms. Physical Exam Physical Exam: General- Not in distress Head- atraumatic Eyes- PERRL. ENT- oropharynx clear Neck- supple, no JVD. Lungs- clear to auscultation no wheezing or crackles Heart- regular rhythm; no murmur, no gallop. Abdomen- normal bowel sounds, soft, nontender, no distension Extremities- no pretibial edema, left wrist somewhat swollen and tender to palpation --improving Neuro-somewhat drowsy ; PERRL, ; no facial palsy; no dysarthria; moves extremities. obeys simple commands Results & Data Results & Data Vital Signs (Past 12 Hours) Vital Signs Temp Pulse Pulse Pulse Resp BP Pulse Ox 04/18/24 07:56 36.4 C L 63 18 124/75 97 04/18/24 07:15 65 04/18/24 02:59 36.4 C L 66 18 129/82 94 O2 Del Method 04/18/24 07:56 Room Air 04/18/24 07:15 04/18/24 02:59 Room Air
[2024-04-18] MEDS: LIDOCAINE 5% 1 PATCH TD SCH (20:05)
[2024-04-18] MEDS: GABAPENTIN 600 MG TAB PO SCH (23:00)
[2024-04-19 03:35] VITALS: RESP 18
[2024-04-19 06:27] LABS: Hematocrit (blood only) 33.5 % (42.0-52.0); Hemoglobin 10.5 g/dl (14.0-18.0); Mean Corpuscular Hemoglobin 32.6 pg (25.0-34.0); Mean Corpuscular Hgb Conc 31.3 g/dL (32.0-36.0); Mean Platelet Volume 12.1 fL (9.4-12.4); Platelet Count 464 K/uL (130-400); RDW Coefficient of Variation 14.2 % (11.5-14.5); RDW Standard Deviation 54.4 fL (36.4-46.3); Red Blood Count 3.22 M/uL (4.70-6.10); White Blood Count 19.98 K/ul (4.8-10.8)
[2024-04-19 06:30] LABS: BUN Creatinine Ratio 17.7 (10-20); Calcium 8.7 mg/dl (8.6-10.3); Creatinine Clr Calc Pharmacy 133.7 ml/min; Est GFR (African American) 128.4 ml/min; Est GFR (Non-African American) 110.8 ml/min
[2024-04-19 08:24] VITALS: TEMP 98.1
[2024-04-19] MEDS: PANTOprazole 40 MG TAB PO PRN (08:35)
[2024-04-19 11:17] VITALS: BP 143/85; O2SAT 98
--- NOTE | 2024-04-19 11:18 | Discharge Summary ---
Date of Service April 19, 2024 Admission HPI Per Admitting Provider 43-year-old male with past medical history significant for gout, GERD, depression, PTSD, anxiety, alcohol abuse and tobacco abuse comes because of left wrist pain. Initially also was somewhat hypotensive and tachycardic. In the ER received Decadron morphine and Toradol and fluids and antibiotics Dapto and Rocephin. Patient is somewhat drowsy now. Patient states last time he drank alcohol was 2 weeks ago. States he used to drink 12 pack of beer and also bottle seems radha daily. But when asked whether we should put him on alcohol withdrawal protocol he agreed to put him on alcohol withdrawal protocol. Denies any fevers. No chest pain or shortness of breath. Has some headache. Has cough. No runny nose. No sore throat. Yesterday had some chest discomfort that resolved. No shortness of breath. No nausea or abdominal pain. Normal bowel and bladder movements. Hemodynamics are okay. Past medical history. As mentioned above Past surgical history. No surgical history on file Social history. Smokes 1 pack a day for 22 years. Drinks alcohol. Medical marijuana. Family history. Father had sleep apnea. Admission Exam Per Admitting Provider General- Not in distress Head- atraumatic Eyes- PERRL. ENT- oropharynx clear Neck- supple, no JVD. Lungs- clear to auscultation no wheezing or crackles Heart- regular rhythm; no murmur, no gallop. Abdomen- normal bowel sounds, soft, nontender, no distension Extremities- no pretibial edema, left wrist somewhat swollen and tender to palpation Neuro-somewhat drowsy ; PERRL, ; no facial palsy; no dysarthria; moves extremities. obeys simple commands Principal Diagnosis Joint pain Left hand/wrist pain Possible gout attack Discharge Exam General- Not in distress Head- atraumatic Eyes- PERRL. ENT- oropharynx clear Neck- supple, no JVD. Lungs- clear to auscultation no wheezing or crackles Heart- regular rhythm; no murmur, no gallop. Abdomen- normal bowel sounds, soft, nontender, no distension Extremities- no pretibial edema, left wrist swelling and tenderness improved. ROM improved. Neuro-somewhat drowsy ; PERRL, ; no facial palsy; no dysarthria; moves extremities. obeys simple commands Discharge Data Allergies Allergy/AdvReac Type Severity Reaction Status Date / Time No Known Allergies Allergy Verified 04/16/24 21:06 Consultations 04/16/24 21:44 ED Decision to Admit Stat 04/17/24 08:00 Consult Orthopedic Surgery Routine Ordered Studies 04/16/24 19:10 CT head/brain wo con Stat 04/16/24 19:20 US venous doppler UE LT Stat Hospital Course (1) Hand pain, left: Plan 43-year-old male with PMH of gout, GERD, depression, PTSD, anxiety, alcohol abuse and tobacco abuse presented to the ED 04/16 with complaint of left wrist pain. At presentation, he was somewhat hypotensive and tachycardic which got resolved with use of a Decadron/morphine/Toradol/fluids/antibiotics [daptomycin and Rocephin] in the ED. He was also noted to be drowsy at ED. 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 Patient denies any febrile illness, sore throat or chest pain or cough. Reports he had been eating okay and moving bowels okay prior to presentation. Denied any pain or burning with passing urine. He was managed for the following: Joint pain Left hand/wrist pain Possible gout attack Patient was recently treated for left knee gout. Patient presented with left wrist swelling/pain along with other left elbow/ankle/knee pain but no swelling/erythema appreciated Patient is supposed to take allopurinol at home, does not take. Per outpatient chart review 04/17, he takes allopurinol 100 mg daily. Left upper extremity imaging reviewed. Was Rx w/ with steroids and Toradol, gradual improvement w/ swelling/rom/te nderness noted. Famotidine while on a steroid Continue with empiric antibiotics daptomycin and Rocephin until blood culture negative for 48 hours --> dc as blood cx neg for 48 hrs. Orthopedics consulted, appreciate recommendation. Pt feels better, pain better controlled, states he has diclofenac gel at home, advised to utilize it over the left wrist every 4-6 hours. Pt will be discharged on steroid and diclo-gel. pt has been advised to resume his allopurinol once wrist pain is resolved. 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 Patient noted to be drowsy at presentation, was hypotensive and tachycardic as well. Follow blood culture, follow urine tox screen. CT head with no acute finding Patient with improved mentation now. 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 Stable. SIRS positive: Leukocytosis and tachycardia at presentation. leukocytosis can be due to recent steroid use. Procalcitonin was negative. Patient denied any febrile illness or cough or acute changes in his bowel or bladder habits at presentation. Neg blood culture x 48 hours. Closely monitor. Possible sleep apnea: Sleep study as an outpatient. Depression, PTSD, Anxiety: stable, not on medications. DVT prophylaxis: SCDs for now Disposition: Med/telemetry Full code. Patient is being discharged with following instructions at the point of discharge: Follow-up with your primary care physician within a week time and likely you will need labs CBC/CMP/magnesium/phosphorus. You were treated for acute gout attack, continue to take your prednisone as prescribed. Continue to utilize diclofenac gel over the left wrist every 4-6 hours until pain is resolved. Continue with left wrist elevation and ice and compression bandage. Continue to take famotidine while on the steroid. Highly appreciate that you have quit drinking since last few weeks, continue to maintain abstinence from alcohol. You would likely benefit from a sleep study as an outpatient, coordinate with your PCP office to set up the test. After the wrist pain is resolved, you can take your prior allopurinol doses. Take your medication as prescribed. Please make sure that you are able to get your medications today by calling your pharmacy before you leave the hospital so that your treatment continuity is not broken. Home Health Attestation I certify that this patient is under my care and that I, or a physicians program support assistant working with me, had a face to-face encounter that meets the home health [id number] encounter requirements with this patient. The encounter with the patient was in whole, or in part, for the following medical condition, which is the primary reason for home health care (list medical condition): I certify that, based on my findings, the following services are medically necessary home health services: My clinical findings support the need for the above services because: Further, I certify that my clinical findings support that this patient is homebound (i.e. absences from home require considerable and taxing effort and are for medical reasons or evangelical services or infrequently or of short duration when for other reasons) because: Certification for Home Health Services: Based on the above findings, I certify that this patient is confined to the home and needs intermittent nursing home care, physical therapy and/or speech therapy or continues to need occupational therapy. The patient is under my care, and I have initiated the establishment of the plan of care. This patient will be followed by a physician who will periodically review the plan of care. Total Time Total Time Spent Total Time Spent (In Minutes): 45 Discharge Plan Discharge Items Patient Disposition: Home - Self-Care Reason For Visit: SIRS, GOUT FLARE? ALCOHOLISM Discharge Diagnosis: left wrist gout flare Activity: Resume your previous activity Non-emergency contact: Primary Care Provider Call non-emergency contact if: you have any medication questions and your symptoms worsen Follow-up/Referrals: Nayeli Gutierrez MD [Primary Care Provider] - Diet: Regular Addtl Attending Provider Instructions: Follow-up with your primary care physician within a week time and likely you will need labs CBC/CMP/magnesium/phosphorus. You were treated for acute gout attack, continue to take your prednisone as prescribed. Continue to utilize diclofenac gel over the left wrist every 4-6 hours until pain is resolved. Continue with left wrist elevation and ice and compression bandage. Continue to take famotidine while on the steroid. Highly appreciate that you have quit drinking since last few weeks, continue to maintain abstinence from alcohol. You would likely benefit from a sleep study as an outpatient, coordinate with your PCP office to set up the test. After the wrist pain is resolved, you can take your prior allopurinol doses. Take your medication as prescribed. Please make sure that you are able to get your medications today by calling your pharmacy before you leave the hospital so that your treatment continuity is not broken. Pending Studies at Discharge: Yes Stand-Alone Forms[facility], Sm[facility] Cess[facility] Medications and DC Order Prescriptions: New oxycodone 5 mg tablet 5 mg PO Q8H PRN (Reason: pain (scale score 7-10)) Qty: 9 0RF famotidine 20 mg Tablet 20 mg PO QAM 10 Days Qty: 10 0RF prednisone 20 mg Tablet 40 mg PO UD Qty: 13 0RF Rx Instructions: 2 tabs daily x 4 days, then 1 tab daily x 3 days, then 1/2 tab daily x 3 days, then stop. allopurinol 100 mg tablet 100 mg PO DAILY Qty: 30 0RF Continued acetaminophen [Tylenol Extra Strength] 500 mg Tablet 1,000 mg PO Q6H PRN (Reason: Pain) omeprazole 20 mg Capsule,Delayed Release(Dr/Ec) 20 mg PO DAILY PRN (Reason: Acid Reflux) lidocaine [Lidoderm] 5 % adhesive patch,medicated 1 patch topical DAILY PRN (Reason: Pain) Rx Instructions: leave on most painful area for up to 12 hrs gabapentin 600 mg tablet 600 mg PO HS Rx Instructions: LAST FILLED 11/19/23 FOR 90 CAPS/90 DAYS gabapentin 100 mg capsule 100 mg PO QAM Rx Instructions: LAST FILLED 11/19/23 FOR 90 CAPS/90 DAYS cyanocobalamin (vitamin B-12) [Vitamin B-12] 100 mcg Tablet 100 mcg PO QAM 30 Days Qty: 30 0RF thiamine HCl (vitamin B1) 100 mg Tablet 100 mg PO QAM 30 Days Qty: 30 0RF folic acid 1 mg Tablet 1 mg PO QAM 30 Days Qty: 30 0RF multivitamin with folic acid [Daily-Mark (with folic acid)] 400 mcg Tablet 1 tab PO QAM 30 Days Qty: 30 0RF Discharge Orders: Discharge Order (Routine); Ordered 04/19/24 Ordered By: Rose Mary Mane Admission Data Admit Date/Time: 04/17/24 01:01 Attending Provider: Rose Mary Mane Admit Provider: Edward Eugene Primary Care Provider: Nayeli Gutierrez Other Providers: Edward Eugene; Reynold Dumont; [facility]
[2024-04-19 14:13] VITALS: PULSE 66
[2024-04-19] MEDS ORDERED: GABAPENTIN 600 MG TAB PO SCH (23:30)
[2024-04-20] MEDS ORDERED: GABAPENTIN 600 MG TAB PO SCH (11:30)
[2024-04-20 12:28] LABS: 7-Aminoclonaz, Confirm NEGATIVE ng/mL (<25); Hydro-Alp Ur, GC/MS NEGATIVE ng/mL (<25); Hydroxyethylflurazepam, Conf NEGATIVE ng/mL (<50); Hydroxymidazolam Ur, GC/MS NEGATIVE ng/mL (<50); Hydroxytriazolam NEGATIVE ng/mL (<50); Lorazepam, Ur GC/MS NEGATIVE ng/mL (<50); Marijuana Quant, GCMS Urine >5000 ng/mL (<5); Nordiazepam, Confirm NEGATIVE ng/mL (<50); Oxazepam Ur, GC/MS 118 ng/mL (<50); Temazepam, Confirm NEGATIVE ng/mL (<50)
== END 2024-04-19 17:31 | disposition home or self-care (01) | DRG 553 ==
LOC: ED 18:25 → 2W 04-17 01:01

== ENCOUNTER 2024-07-26 12:09 | Inpatient (IN) ==
--- NOTE | 2024-07-26 12:39 | Emergency Department Note ---
Impression & Plan Alcohol withdrawal syndrome, Hip pain, acute ED Provider Note NAME: ASTRID PEREZ AGE: 43 SEX: M : 1980 ARRIVES VIA: Walk-In INFORMANT: Patient] ED PROVIDER(S): JOSTIN Lee, Shawnee Garcia MD CHIEF COMPLAINT: Leg pain HISTORY OF PRESENT ILLNESS: This 43-year-old male patient presents to the emergency department via private vehicle for evaluation of right leg pain. He reports he is unable to put pressure on it due to severe pain. He reports he fell 4 times last night due to pain. He reports no known injury to the right leg, however has chronic issues due to an injury in 2002. He reports he feels the pain begins deep in his groin and extends into the right upper hip and thigh. He reports no scrotal pain. He reports no abdominal pain, nausea, or vomiting. He states inability to lift the right leg, or bear weight due to severe pain. He reports full sensation, and no weakness. He reports no dysuria, constipation, or diarrhea. REVIEW OF SYSTEMS: A review of systems was performed with positives and pertinent negatives listed in the history of present illness. All other systems were reviewed and are negative. ALLERGIES: See below MEDICATIONS: See below PMH: See below PHYSICAL EXAM: VITALS: Vitals are noted on the nurse's note and reviewed by myself. Vital signs stable. GENERAL: 43-year-old male, in no acute distress, nondiaphoretic, well-developed well-nourished. SKIN: The skin was without rashes, erythema, edema, or bruising. HEAD: Normocephalic atraumatic. NECK: Supple without nuchal rigidity. No lymphadenopathy. No thyromegaly. Cervical spine is nontender. No JVD. HEART: Tachycardia, without murmurs gallops or rubs. LUNGS: Clear to auscultation bilaterally without wheezes, rales or rhonchi. No retractions or accessory muscle use. ABDOMEN: Positive bowel sounds x 4. Soft, nontender, without masses or organomegaly. Pugh sign negative. No guarding or rebound tenderness. MUSCULOSKELETAL: Limited ROM right hip, secondary to pain. Full sensation intact BLE, to dull and sharp. DP pulse intact bilaterally. NEURO: Patient was alert and oriented to person place and time. No focal neurological deficits. MEDICAL DECISION MAKING: The patient is a pleasant 43-year-old male who arrives to the emergency department for evaluation of the above-stated complaint. A saline lock was established, CBC, CMP, urinalysis were obtained. Lab work shows leukocytosis, with a stable anemia. CMP shows no significant findings. Urinalysis CT imaging of the abdomen and pelvis with IV contrast with recon CT lumbar spine was obtained which shows no significant findings in the lumbar spine, with a chronic appearing right acetabular fracture involving the superolateral aspect with no displacement. The patient was placed on the monitor and storage bin tender due to tachycardia. EKG was obtained which per my initial interpretation shows sinus tachycardia at a rate of 128bpm with no ST elevation, depression, or ischemic findings. The patient was provided 4 mg of IV morphine for pain control. Upon reevaluation he reports no reduction in his symptoms. We discussed the persistent tachycardia, which initially appeared to be from pain, however, after reviewing the patient's chart, it was found he has a history of alcohol withdrawal. I spoke with the patient regarding his last drink, which he stated was yesterday. He said the pain was so severe, he needed something to help. He reported prior to yesterday, he was alcohol free for 2 months. Alcohol withdrawal scale was performed with lorazepam dosing according to scale. Thiamine, multivitamin, and drug profile orders were placed for assistance with admission. I informed him he would need to be admitted for alcohol withdrawal, and we could further evaluated the findings of his CT report. I spoke with Dr. Howe, from orthopedics, who stated he did not believe the findings were the cause of his pain and ambulatory dysfunction, however, he would be happy to consult during the patient's admission. Dr. Silva, from the [facility] service was contacted for admission, who agreed to accept the patient. Please refer to his documentation for further patient workup and care. DIFFERENTIAL DIAGNOSIS: Fracture, subluxation, dislocation, contusion, ligamentous injury, neurovascular, compartment syndrome, as well as other pathologies. Continuous monitor and storage bin tender: Order was placed for continuous monitor and storage bin tender. Patient was placed on the monitor and storage bin tender. Patient was noted to be in normal sinus tachycardia at an initial rate of 127 bpm. The chart was completed utilizing [employer] voice recognition software. Grammatical errors, random word insertions, pronoun errors, and incomplete sentences are an occasional consequence of this system due to software limitations, ambient noise, and hardware issues. Any formal questions or concerns about the content, text, or information contained within the body of this dictation should be directly addressed to the physician for clarification. Past Med/Surg History Problem List (Updated 08/02/24 @ 23:34 by JOSTIN Stone) Hip pain, acute (Acute) Knee effusion, right Tachycardia Right hip pain Intractable neuropathic pain of right lower extremity Elevated white blood cell count, unspecified Acute bilateral knee pain (Acute) Gout of left wrist Hand pain, left (Acute) Swelling of left hand (Acute) Gout of left knee Knee effusion, left Alcoholic intoxication (Acute) Alcohol withdrawal syndrome (Acute) Pain, dental (Acute) Pain of left great toe (Acute) Pain, dental (Acute) Medical History Acute bilateral knee pain Alcoholism Gout Spinal stenosis GERD (gastroesophageal reflux disease) Surgical History Hx of knee surgery Family History Other No significant family history Social History Smoking Status: Current every day smoker Tobacco Type: Cigarettes Cigarettes Per Day: 20; Second Hand Exposure: No; Do You Dip or Chew Tobacco: No; Hx Alcohol Use: Yes Alcohol type: beer Hx Substance Use: Yes Last Used Substance: Days (ago) Substance Use Type Other:: benzodiazepam Preferred Language: Estonian Communication Ability: Effective 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 Beliefs That Will Affect Care: None marital status: Single Current Living Situation: Alone Current Living Situation Comment: apartment current occupational status: unemployed Feels Safe at Home: Yes Assistive Devices: Cane Allergies Allergies Allergy/AdvReac Type Severity Reaction Status Date / Time No Known Allergies Allergy Verified 07/26/24 18:15 Home Meds Home Medications Medication Instructions Recorded Confirmed acetaminophen 500 mg tablet 1,000 mg PO Q6H PRN Pain 01/12/23 07/26/24 (Tylenol Extra Strength) lidocaine 5 % topical patch 1 patch topical DAILY PRN Pain 02/07/23 07/26/24 (Lidoderm) gabapentin 100 mg capsule 100 mg PO QAM 07/24/24 11/16/24 gabapentin 600 mg tablet 600 mg PO HS 04/02/24 07/26/24 Previous Rx's Medication Instructions Recorded allopurinol 100 mg tablet 100 mg PO DAILY #30 tabs 04/19/24 escitalopram oxalate 10 mg tablet 5 mg (1/2 x 10 mg) PO QAM #30 tabs 07/31/24 folic acid 1 mg tablet 1 mg PO QAM #10 tabs 07/31/24 hydroxyzine HCl 25 mg tablet 25 mg PO TID PRN anxiety #10 tabs 07/31/24 multivitamin with folic acid 400 1 tab PO QAM #30 tabs 07/31/24 mcg tablet (Daily-Mark (with folic acid)) omeprazole 20 mg capsule,delayed 20 mg PO DAILY Acid Reflux #0 caps 07/31/24 release oxycodone 5 mg tablet 5 mg PO QID PRN pain #14 tabs 07/31/24 prednisone 20 mg tablet 20 mg PO DAILY #4 tabs 07/31/24 thiamine HCl (vitamin B1) 100 mg 100 mg PO QAM #10 tabs 07/31/24 tablet Results & Data (ED) Vital Signs Vital Signs - 24 hr 07/26/24 12:26 Temperature 37.1 C Temperature Source Temporal Artery Scan Pulse Rate 137 H Pulse Rhythm Regular Pulse Strength Normal Respiratory Rate 18 Respiratory Effort / Characteristics Non-Labored Spontaneous Respiratory Depth Normal Respiratory Pattern Regular Blood Pressure 128/81 Blood Pressure Mean 96 Pulse Oximetry 100 Oxygen Delivery Method Room Air Sepsis Recent Fever Within 48 Hours No Sepsis New/Unexplained Change in Mental Status N/A Sepsis Action Taken by Nursing No Action Required Home Medications Current Medication List: was personally reviewed by me Laboratory Data Attestation: I reviewed the patient's lab results. 07/30/24 05:43 07/30/24 05:43 Lab Results 07/26/24 07/26/24 Range/Units 13:44 14:27 WBC 18.55 H (4.8-10.8) K/ul RBC 4.70 (4.70-6.10) M/uL Hgb 14.1 (14.0-18.0) g/dl Hct 43.6 (42.0-52.0) % MCV 92.8 (80.0-100.0) fL MCH 30.0 (25.0-34.0) pg MCHC 32.3 (32.0-36.0) g/dL RDW Std Deviation 47.9 H (36.4-46.3) fL RDW Coeff of Dhiraj 14.1 (11.5-14.5) % Plt Count 274 (130-400) K/uL MPV 10.7 (9.4-12.4) fL Immature Gran % (Auto) 0.8 % Neut % (Auto) 70.8 % Lymph % (Auto) 14.2 % [place] % (Auto) 13.8 % Eos % (Auto) 0.1 % Baso % (Auto) 0.3 % Neut # (Auto) 13.13 H (1.40-6.50) K/uL Lymph # (Auto) 2.64 (1.20-3.40) K/uL [place] # (Auto) 2.56 H (0.11-0.59) K/uL Eos # (Auto) 0.02 (0.00-0.50) K/uL Baso # (Auto) 0.06 (0.00-0.20) K/uL Immature Gran # (Auto) 0.14 (0.01-0.20) K/uL Sodium 136 (136-145) mmol/L Potassium 3.5 (3.5-5.1) mmol/L Chloride 100 (98-107) mmol/L Carbon Dioxide 24 (21-32) mmol/L Anion Gap 12 H (3-11) BUN 8 (6-23) mg/dl Creatinine 0.81 (0.6-1.4) mg/dl Est Cr Clr Drug Dosing 130.4 ml/min eGFR 112.89 BUN/Creatinine Ratio 9.9 L (10-20) Glucose 127 H (70-99(Fasting)) mg/dl Calcium 9.5 (8.6-10.3) mg/dl Total Bilirubin 0.6 (0.2-1.0) mg/dl AST 17 (13-39) U/L ALT 14 (7-52) U/L Alkaline Phosphatase 141 H (34-104) U/L Total Protein 7.3 (6.0-8.3) gm/dl Albumin 4.3 (3.4-5.0) gm/dl Globulin 3.0 (2.5-4.0) gm/dl Albumin/Globulin Ratio 1.4 (0.9-2) Urine Color Yellow Urine Appearance Clear (Clear) Urine pH 6.0 (4.5-7.5) Ur Specific [place] 1.011 (1.000-1.030) Urine Protein Negative (Negative) Urine Glucose (UA) Negative (Negative) Urine Ketones Negative (Negative) Urine Blood Negative (Negative) Urine Nitrite Negative (Negative) Urine Bilirubin Negative (Negative) Urine Urobilinogen Negative (Negative) Ur Leukocyte Esterase Negative (Negative) Urine Opiates Screen Pos H (Neg) U Codeine Confrm GC/MS NEGATIVE (<50) ng/mL Ur Morphine (GC/MS) 774 H (<50) ng/mL Ur Hydrocodone (GC/MS) NEGATIVE (<50) ng/mL Ur Norhydrocodone NEGATIVE (<50) ng/mL Ur Noroxycodone NEGATIVE (<50) ng/mL Urine Oxycodone (GC/MS) NEGATIVE (<50) ng/mL U Oxymorphone GC/MS NEGATIVE (<50) ng/mL Ur Methadone, Qual Neg (Neg) Ur Hydromorphone (GC/MS) NEGATIVE (<50) ng/mL Urine Fentanyl Screen Neg (Neg) Urine Barbiturates Neg (Neg) Ur Phencyclidine (PCP) Neg (Neg) U Amphetamin/Meth Scrn Neg (Neg) MDMA (Ecstasy) Screen Neg (Neg) U OH-Alprazolam Confrm NEGATIVE (<25) ng/mL U Benzodiazepines Scrn Pos H (Neg) 7-Amino Clonazepam NEGATIVE (<25) ng/mL Ur Nordiazepam Confirm 565 H (<50) ng/mL U OH-ethylflurazepam NEGATIVE (<50) ng/mL U Lorazepam Cnf GC/MS NEGATIVE (<50) ng/mL U Oxazepam Confm GC/MS 594 H (<50) ng/mL Ur Temazepam Confirm 1280 H (<50) ng/mL U OH-Triazolam Confirm NEGATIVE (<50) ng/mL U OH-Midazolam Confirm NEGATIVE (<50) ng/mL Ur Cocaine Metabolite Neg (Neg) U Marijuana (THC) Screen Pos H (Neg) U Marijuana THC Carboxy 327 H (<5) ng/mL Drug Screen Comment SEE NOTE Administered Medications Discontinued Medications Acetaminophen (Acetaminophen 500 Mg Tab) 1,000 mg PO Q6H PRN PRN Reason: Pain Stop: 08/25/24 20:44 Last Admin: 07/31/24 04:05 Dose: 1,000 mg Documented By: Admin: 07/30/24 21:13 Dose: 1,000 mg Documented By: Admin: 07/28/24 21:51 Dose: 1,000 mg Documented By: Admin: 07/28/24 06:36 Dose: 1,000 mg Documented By: Admin: 07/27/24 21:10 Dose: 1,000 mg Documented By: Admin: 07/27/24 15:11 Dose: 1,000 mg Documented By: Admin: 07/27/24 07:39 Dose: 1,000 mg Documented By: Admin: 07/26/24 22:45 Dose: 1,000 mg Documented By: CHAPITO Al Hydrox/Mg Hydrox/Simethicone (Aluminum/Magnesium Susp 30 Ml Udc) 15 ml PO NOW STA Stop: 07/31/24 09:02 Last Admin: 07/31/24 09:11 Dose: 15 ml Documented By: EDWARD Allopurinol (Allopurinol 100 Mg Tab) 100 mg PO DAILY [place] Stop: 08/26/24 08:59 Last Admin: 07/31/24 08:32 Dose: 100 mg Documented By: Admin: 07/30/24 09:24 Dose: 100 mg Documented By: Admin: 07/29/24 09:00 Dose: 100 mg Documented By: Admin: 07/28/24 08:34 Dose: 100 mg Documented By: Admin: 07/27/24 08:06 Dose: 100 mg Documented By: RENATA Chlordiazepoxide HCl (Chlordiazepoxide Hcl 25 Mg Cap) 50 mg PO Q8H [place] Stop: 07/29/24 02:01 Last Admin: 07/29/24 01:27 Dose: 50 mg Documented By: Admin: 07/28/24 18:13 Dose: 50 mg Documented By: Admin: 07/28/24 10:36 Dose: 50 mg Documented By: NICK Chlordiazepoxide HCl (Chlordiazepoxide Hcl 25 Mg Cap) 50 mg PO Q6H [place] Stop: 07/28/24 02:01 Last Admin: 07/28/24 01:51 Dose: 50 mg Documented By: Admin: 07/27/24 19:59 Dose: 50 mg Documented By: Admin: 07/27/24 15:11 Dose: 50 mg Documented By: Admin: 07/27/24 08:05 Dose: 50 mg Documented By: OO Chlordiazepoxide HCl (Chlordiazepoxide Hcl 25 Mg Cap) 25 mg PO Q8H [place] Stop: 07/30/24 02:01 Last Admin: 07/30/24 01:21 Dose: 25 mg Documented By: Admin: 07/29/24 17:24 Dose: 25 mg Documented By: Admin: 07/29/24 09:03 Dose: 25 mg Documented By: OO Chlordiazepoxide HCl (Chlordiazepoxide Hcl 10 Mg Cap) 10 mg PO Q12H [place] Stop: 07/31/24 02:01 Last Admin: 07/31/24 01:45 Dose: 10 mg Documented By: Admin: 07/30/24 13:23 Dose: 10 mg Documented By: ONatalya Docusate Sodium (Docusate Sodium 100 Mg Cap) 100 mg PO BID [place] Stop: 08/28/24 15:54 Last Admin: 07/31/24 08:37 Dose: 100 mg Documented By: Admin: 07/30/24 21:12 Dose: Not Given Documented By: Admin: 07/30/24 09:27 Dose: 100 mg Documented By: Admin: 07/29/24 16:55 Dose: 100 mg Documented By: ONatalya Doxycycline Hyclate (Doxycycline Hyclate 100 Mg Cap) 100 mg PO BID [place] Stop: 08/01/24 20:59 Last Admin: 07/31/24 08:31 Dose: 100 mg Documented By: Admin: 07/30/24 21:12 Dose: 100 mg Documented By: Admin: 07/30/24 09:23 Dose: 100 mg Documented By: Admin: 07/29/24 20:43 Dose: 100 mg Documented By: Admin: 07/29/24 08:59 Dose: 100 mg Documented By: Admin: 07/28/24 20:09 Dose: 100 mg Documented By: Admin: 07/28/24 10:39 Dose: 100 mg Documented By: Admin: 07/27/24 21:08 Dose: 100 mg Documented By: REYNALDO Escitalopram Oxalate (Escitalopram Oxalate 10 Mg Tab) 5 mg PO QAM [place] Stop: 12/20/24 08:59 Last Admin: 07/31/24 08:34 Dose: 5 mg Documented By: Admin: 07/30/24 09:27 Dose: 5 mg Documented By: OO Famotidine (Famotidine 20 Mg Tab) 20 mg PO QAM [place] Stop: 08/30/24 08:59 Last Admin: 07/31/24 11:14 Dose: 20 mg Documented By: GRISELDA Folic Acid (Folic Acid 1 Mg Tab) 1 mg PO QA [place] Stop: 08/26/24 08:59 Last Admin: 07/31/24 08:33 Dose: 1 mg Documented By: Admin: 07/30/24 09:25 Dose: 1 mg Documented By: Admin: 07/29/24 09:00 Dose: 1 mg Documented By: Admin: 07/28/24 08:34 Dose: 1 mg Documented By: Admin: 07/27/24 08:06 Dose: 1 mg Documented By: RENATA Gabapentin (Gab[facility] 100 Mg Cap) [facility] [place] Stop: 08/26/24 08:59 Last Admin: 07/31/24 08:31 Dose: 100 mg Documented By: Admin: 07/30/24 09:23 Dose: 100 mg Documented By: Admin: 07/29/24 09:01 Dose: 100 mg Documented By: Admin: 07/28/24 08:34 Dose: 100 mg Documented By: Admin: 07/27/24 08:07 Dose: 100 mg Documented By: ONatalya Gabapentin (Gabapentin 600 Mg Tab) 600 mg PO HS [place] Stop: 08/25/24 20:59 Last Admin: 07/30/24 21:12 Dose: 600 mg Documented By: Admin: 07/29/24 20:43 Dose: 600 mg Documented By: Admin: 07/28/24 20:09 Dose: 600 mg Documented By: Admin: 07/27/24 21:08 Dose: 600 mg Documented By: Admin: 07/26/24 22:44 Dose: 600 mg Documented By: CHAPITO Heparin Sodium (Porcine) (Heparin Sod 5,000 Unit/0.5 Ml Vial) 5,000 units SQ Q12 [place] Stop: 08/26/24 20:59 Last Admin: 07/31/24 08:38 Dose: 5,000 units Documented By: Admin: 07/30/24 21:12 Dose: 5,000 units Documented By: Admin: 07/30/24 09:30 Dose: 5,000 units Documented By: Admin: 07/29/24 20:42 Dose: 5,000 units Documented By: Admin: 07/29/24 08:59 Dose: 5,000 units Documented By: Admin: 07/28/24 20:09 Dose: 5,000 units Documented By: Admin: 07/28/24 08:44 Dose: 5,000 units Documented By: Admin: 07/27/24 21:07 Dose: 5,000 units Documented By: REYNALDO Hydromorphone HCl (Hydromorphone Inj 0.5 Mg/0.5 Ml Syr) 0.5 mg IV Q6H PRN PRN Reason: Pain Stop: 08/09/24 19:36 Last Admin: 07/29/24 20:43 Dose: 0.5 mg Documented By: Admin: 07/29/24 11:08 Dose: 0.5 mg Documented By: Admin: 07/29/24 04:26 Dose: 0.5 mg Documented By: Admin: 07/28/24 22:26 Dose: 0.5 mg Documented By: Admin: 07/28/24 16:17 Dose: 0.5 mg Documented By: Admin: 07/28/24 10:36 Dose: 0.5 mg Documented By: Admin: 07/28/24 04:34 Dose: 0.5 mg Documented By: Admin: 07/27/24 22:16 Dose: 0.5 mg Documented By: Admin: 07/27/24 16:05 Dose: 0.5 mg Documented By: Admin: 07/27/24 09:39 Dose: 0.5 mg Documented By: Admin: 07/27/24 02:47 Dose: 0.5 mg Documented By: Admin: 07/26/24 21:13 Dose: 0.5 mg Documented By: CHAPITO Hydroxyzine HCl (Hydroxyzine Hcl 25 Mg Tab) 50 mg PO TID PRN PRN Reason: Anxiety/Insomnia Stop: 08/28/24 09:04 Last Admin: 07/31/24 08:43 Dose: 50 mg Documented By: Admin: 07/30/24 21:12 Dose: 50 mg Documented By: Admin: 07/30/24 09:26 Dose: 50 mg Documented By: Admin: 07/29/24 23:56 Dose: 50 mg Documented By: Admin: 07/29/24 11:07 Dose: 50 mg Documented By: OO Sodium Chloride (Nss) 1,000 mls @ 999 mls/hr IV .Q1H1M ONE Stop: 07/26/24 15:42 Last Infusion: 07/26/24 16:47 Dose: Infused Documented By: Admin: 07/26/24 15:04 Dose: 999 mls/hr Documented By: OMERO Thiamine HCl 100 mg/ Syringe 10 mls @ 2 mls/min IV NOW STA Stop: 07/26/24 18:35 Last Admin: 07/26/24 21:26 Dose: 2 mls/min Documented By: CHAPITO Sodium Chloride (1/2 Nss) 1,000 mls @ 125 mls/hr IV .Q8H [place] Stop: 07/27/24 19:59 Last Infusion: 07/28/24 02:30 Dose: Infused Documented By: Admin: 07/27/24 17:38 Dose: 125 mls/hr Documented By: Infusion: 07/27/24 17:38 Dose: Infused Documented By: Admin: 07/27/24 09:41 Dose: 125 mls/hr Documented By: Infusion: 07/27/24 05:12 Dose: Infused Documented By: Admin: 07/26/24 21:12 Dose: 125 mls/hr Documented By: CHAPITO Ceftriaxone Sodium (Rocephin) 1,000 mg in 50 mls @ 100 mls/hr IV Q24H [place] Stop: 07/28/24 19:59 Last Infusion: 07/27/24 20:28 Dose: Infused Documented By: Admin: 07/27/24 19:58 Dose: 100 mls/hr Documented By: Infusion: 07/26/24 22:21 Dose: Infused Documented By: Admin: 07/26/24 21:51 Dose: 100 mls/hr Documented By: CHAPITO Ioversol (Optiray 320 100ml) 94 ml IV ONCE ONE Stop: 07/26/24 15:25 Last Admin: 07/26/24 15:24 Dose: 94 ml Documented By: DANIELA Ioversol (Optiray 320 125ml) 70 ml IV ONCE ONE Stop: 07/28/24 11:09 Last Admin: 07/28/24 11:09 Dose: 70 ml Documented By: EFREM Ketorolac Tromethamine (Ketorolac Tromethamine 15 Mg/Ml Vial) 15 mg IV Q6H PRN PRN Reason: Moderate Pain (Scale 4, 5, 6) Stop: 08/01/24 16:01 Last Admin: 07/31/24 11:15 Dose: 15 mg Documented By: Admin: 07/30/24 23:55 Dose: 15 mg Documented By: Admin: 07/30/24 17:38 Dose: 15 mg Documented By: Admin: 07/30/24 06:42 Dose: 15 mg Documented By: Admin: 07/29/24 16:55 Dose: 15 mg Documented By: Admin: 07/29/24 08:59 Dose: 15 mg Documented By: Admin: 07/29/24 01:31 Dose: 15 mg Documented By: Admin: 07/28/24 19:35 Dose: 15 mg Documented By: Admin: 07/28/24 08:44 Dose: 15 mg Documented By: Admin: 07/28/24 01:50 Dose: 15 mg Documented By: Admin: 07/27/24 19:30 Dose: 15 mg Documented By: RENATA Lidocaine (Lidocaine 5% 1 Patch) 1 patch TD DAILY PRN PRN Reason: Pain Stop: 08/25/24 20:44 Last Admin: 07/28/24 21:51 Dose: 1 patch Documented By: Admin: 07/27/24 21:09 Dose: 1 patch Documented By: REYNALDO Lorazepam (Lorazepam 2 Mg/1 Ml Vial) 1 mg IV NOW STA Stop: 07/26/24 17:50 Last Admin: 07/26/24 18:07 Dose: 1 mg Documented By: OMERO Lorazepam (Lorazepam 2 Mg/1 Ml Vial) 1 mg IV ONE PRN; Protocol PRN Reason: EtoH Withdrawal AWSS 6-10 Last Admin: 07/26/24 19:22 Dose: 1 mg Documented By: NUHA Lorazepam (Lorazepam 2 Mg/1 Ml Vial) 1 mg IV ONE PRN; Protocol PRN Reason: EtoH Withdrawal AWSS 6-10 Last Admin: 07/26/24 21:26 Dose: 1 mg Documented By: CHAPITO Lorazepam (Lorazepam 2 Mg/1 Ml Vial) 1 mg IV UD PRN; Protocol PRN Reason: EtOH Withdrawal AWSS Score 6,7 Stop: 08/26/24 07:51 Last Admin: 07/28/24 20:15 Dose: 1 mg Documented By: Admin: 07/28/24 18:13 Dose: 1 mg Documented By: Admin: 07/28/24 16:18 Dose: 1 mg Documented By: Admin: 07/28/24 08:41 Dose: 1 mg Documented By: Admin: 07/27/24 19:30 Dose: 1 mg Documented By: Admin: 07/27/24 15:10 Dose: 1 mg Documented By: OO Lorazepam (Lorazepam 2 Mg/1 Ml Vial) 2 mg IV UD PRN; Protocol PRN Reason: EtOH Withdrawal AWSS Score 8,9 Stop: 08/26/24 07:51 Last Admin: 07/27/24 08:05 Dose: 2 mg Documented By: ONatalya Miscellaneous (Remove Lidoderm Patch) 1 each N/A DAILY@2100 [place] Stop: 08/25/24 20:59 Last Admin: 07/30/24 21:13 Dose: Not Given Documented By: Admin: 07/29/24 20:43 Dose: 1 each Documented By: Admin: 07/28/24 20:10 Dose: 1 each Documented By: Admin: 07/27/24 21:08 Dose: Not Given Documented By: Admin: 07/26/24 21:38 Dose: Not Given Documented By: CHAPITO Miscellaneous (Remove Nicoderm Patch) 1 each N/A DAILY@0859 [facility] Stop: 08/27/24 08:58 Last Admin: 07/31/24 08:34 Dose: 1 each Documented By: Admin: 07/30/24 09:29 Dose: 1 each Documented By: Admin: 07/29/24 09:02 Dose: 1 each Documented By: Admin: 07/28/24 08:29 Dose: 1 each Documented By: NICK Morphine Sulfate (Morphine Sulfate 4 Mg/Ml 1 Ml Carp\Vial) 4 mg IV NOW STA Stop: 07/26/24 13:16 Last Admin: 07/26/24 13:54 Dose: 4 mg Documented By: MONIKA Morphine Sulfate (Morphine Sulfate 4 Mg/Ml 1 Ml Carp\Vial) 4 mg IV NOW STA Stop: 07/26/24 16:00 Last Admin: 07/26/24 16:07 Dose: 4 mg Documented By: CHAO Multivitamins (Multivitamin Tab) 1 tab PO NOW STA Stop: 07/26/24 18:32 Last Admin: 07/26/24 19:22 Dose: 1 tab Documented By: NUHA Multivitamins (Multivitamin Tab) [facility] [place] Stop: 08/26/24 08:59 Last Admin: 07/31/24 08:32 Dose: 1 tab Documented By: Admin: 07/30/24 09:24 Dose: 1 tab Documented By: Admin: 07/29/24 09:00 Dose: 1 tab Documented By: Admin: 07/28/24 08:34 Dose: 1 tab Documented By: Admin: 07/27/24 08:06 Dose: 1 tab Documented By: RENATA Nicotine (Nicotine 14 Mg/24 Hr Patch) 1 patch TD [facility] Stop: 08/26/24 16:29 Last Admin: 07/31/24 08:32 Dose: 1 patch Documented By: Admin: 07/30/24 09:29 Dose: 1 patch Documented By: Admin: 07/29/24 09:02 Dose: 1 patch Documented By: Admin: 07/28/24 08:29 Dose: 1 patch Documented By: Admin: 07/27/24 17:39 Dose: 1 patch Documented By: RENATA Oxycodone HCl (Oxycodone Hcl Ir 5 Mg Tab (Immediate Release)) 5 - 10 mg PO QID PRN PRN Reason: Pain Stop: 08/12/24 02:14 Last Admin: 07/31/24 08:19 Dose: 10 mg Documented By: Admin: 07/30/24 23:56 Dose: 10 mg Documented By: Admin: 07/30/24 17:00 Dose: 5 mg Documented By: Admin: 07/30/24 16:41 Dose: 5 mg Documented By: Admin: 07/30/24 09:25 Dose: 10 mg Documented By: Admin: 07/29/24 23:55 Dose: 10 mg Documented By: Admin: 07/29/24 15:27 Dose: 10 mg Documented By: Admin: 07/29/24 06:35 Dose: 10 mg Documented By: REYNALDO Pantoprazole Sodium (Pantoprazole 40 Mg Tab) 40 mg PO DAILY PRN PRN Reason: Acid Reflux Stop: 08/25/24 21:03 Last Admin: 07/31/24 09:09 Dose: 40 mg Documented By: Admin: 07/30/24 23:55 Dose: 40 mg Documented By: MLYash Potassium Chloride (Potassium Chloride Crtab 20 Meq Tabcr) 20 meq PO NOW STA Stop: 07/29/24 09:09 Last Admin: 07/29/24 11:08 Dose: 20 meq Documented By: OO Prednisone (Prednisone 20 Mg Tab) 40 mg PO DAILY [place] Stop: 08/26/24 08:59 Last Admin: 07/31/24 08:32 Dose: 40 mg Documented By: Admin: 07/30/24 09:24 Dose: 40 mg Documented By: Admin: 07/29/24 09:00 Dose: 40 mg Documented By: Admin: 07/28/24 08:34 Dose: 40 mg Documented By: Admin: 07/27/24 10:45 Dose: 40 mg Documented By: ONatalya Thiamine HCl (Thiamine Hcl 100 Mg Tab) 100 mg PO QAM [place] Stop: 08/26/24 08:59 Last Admin: 07/31/24 08:32 Dose: 100 mg Documented By: Admin: 07/30/24 09:25 Dose: 100 mg Documented By: Admin: 07/29/24 09:01 Dose: 100 mg Documented By: Admin: 07/28/24 08:34 Dose: 100 mg Documented By: Admin: 07/27/24 08:06 Dose: 100 mg Documented By: OO Imaging Data Attestation: I personally reviewed and interpreted this imaging study as follows: Discharge Plan Visit Data Chief Complaint: Leg Injury/Pain Stated Complaint: RT LEG THIGH AND LEG PAIN, AND NO USE ED Provider: Shawnee Garcia ED Midlevel Provider: Ame Jimenez Discharge Problem: Alcohol withdrawal syndrome, Hip pain, acute Patient Disposition: Admitted As Inpatient Discharge Instructions Interventions: ED Discharge Assessment Last Done: 07/26/24 20:57
[2024-07-26] MEDS: MoRPHine SULFATE 4 MG/ML 1 ML CARP\\VIAL IV STA ×2 (13:54→16:07)
[2024-07-26 14:04] LABS: Basophils # (auto) 0.06 K/uL (0.00-0.20); Basophils % (auto) 0.3 %; Eosinophils # (auto) 0.02 K/uL (0.00-0.50); Eosinophils % (auto) 0.1 %; Hematocrit (blood only) 43.6 % (42.0-52.0); Hemoglobin 14.1 g/dl (14.0-18.0); Immature Granulocytes # (auto) 0.14 K/uL (0.01-0.20); Immature Granulocytes % (auto) 0.8 %; Lymphocytes # (auto) 2.64 K/uL (1.20-3.40); Lymphocytes % (auto) 14.2 %; Mean Corpuscular Hgb Conc 32.3 g/dL (32.0-36.0); Mean Corpuscular Volume 92.8 fL (80.0-100.0); Mean Platelet Volume 10.7 fL (9.4-12.4); Monocytes # (auto) 2.56 K/uL (0.11-0.59); Monocytes % (auto) 13.8 %; Neutrophils # (auto) 13.13 K/uL (1.40-6.50); Neutrophils % (auto) 70.8 %; Platelet Count 274 K/uL (130-400); RDW Coefficient of Variation 14.1 % (11.5-14.5); RDW Standard Deviation 47.9 fL (36.4-46.3); White Blood Count 18.55 K/ul (4.8-10.8)
[2024-07-26 14:24] LABS: Albumin Globulin Ratio 1.4 (0.9-2); Albumin Level 4.3 gm/dl (3.4-5.0); BUN Creatinine Ratio 9.9 (10-20); Bilirubin,Total 0.6 mg/dl (0.2-1.0); Calcium 9.5 mg/dl (8.6-10.3); Creatinine Clr Calc Pharmacy 130.4 ml/min; Potassium 3.5 mmol/L (3.5-5.1); Total Protein 7.3 gm/dl (6.0-8.3)
[2024-07-26 14:40] LABS: Appearance Urine Clear (Clear); Bilirubin Urine Negative (Negative); Blood Urine Negative (Negative); Color Urine Yellow; Glucose Urine UA Negative (Negative); Ketones Urine Negative (Negative); Leukocyte Esterase Urine Negative (Negative); Nitrite Urine Negative (Negative); Protein Urine Negative (Negative); Specific Gravity Urine 1.011 (1.000-1.030); Urobilinogen Urine Negative (Negative)
[2024-07-26] MEDS: SODIUM CHLORIDE 0.9% 1,000 ML IV ONE (15:04)
[2024-07-26] MEDS: OPTIRAY 320 100ml IV ONE (15:24)
--- NOTE | 2024-07-26 15:52 | CT Scan Report ---
EXAMINATION: CT lumbar spine W/O con CLINICAL HISTORY: Cannot use whole right leg, putting pressure causes pain, fell 4 times. PRIORS: Plain film 01/12/2023 TECHNIQUE: Contiguous axial images were obtained through the lumbar spine without the use of intravenous contrast. Sagittal and coronal reformations are supplied. FINDINGS: Bone stock appears preserved. Grade 1 anterolisthesis of L4 on L5, unchanged. Vertebral body heights are well-maintained. No compression fracture. Moderate facet hypertrophic changes at L4-L5. Moderate to advanced facet hypertrophic changes at L5-S1, right greater than left. No paraspinal hematoma or soft tissue swelling. No transverse or spinous process fracture. Muscle bulk is normal. Sacroiliac joints are patent. Aorta is normal caliber. IMPRESSION: 1. Grade 1 anterolisthesis of L4 at L5, unchanged. 2. No acute fracture or paravertebral soft tissue swelling. 3. Moderate to advanced facet degenerative change at L4-L5 and L5-S1. Electronically signed by Gayatri Peterson 07-26-2024 3:46 PM
--- NOTE | 2024-07-26 15:52 | CT Scan Report ---
EXAMINATION: Abdomen and pelvis CT with CLINICAL HISTORY: Patient reports cannot use his whole leg, putting pressure on it causes pain, patient fell 4 times last night, not on blood thinners. PRIORS: None TECHNIQUE: Contiguous axial images were obtained through the abdomen and pelvis with the use of intravenous contrast. Sagittal and coronal reformations are supplied. FINDINGS: Lung bases unremarkable. The liver is enlarged measuring 21 cm. The gallbladder, portal vein, pancreas, spleen, stomach, adrenals, aorta and IVC are morphologically unremarkable. Kidneys enhance symmetrically. No obstructing renal calculus or hydronephrosis. No ascites or extraluminal gas. Appendix is normal in the right lower quadrant. Urinary bladder distended and morphologically unremarkable. A small amount of formed stool present in the colon. No dilated loops of bowel. No pericolonic inflammatory change or small bowel obstruction. No adenopathy. Prostate normal in size. A chronic appearing acetabular fracture is present, superior lateral aspect, image 63, series 300 and image 3013, series 3. IMPRESSION: 1. No CT evidence of an acute abdominal or pelvic abnormality. 1. Chronic appearing right acetabular fracture involving the superolateral aspect with no displacement. Please correlate with history of trauma. Electronically signed by Gayatri Peterson 07-26-2024 3:51 PM
[2024-07-26] MEDS: LORazepam 2 MG/1 ML VIAL IV STA (18:07)
[2024-07-26 19:22] LABS: Amphetamines+Metham, Urine Neg (Neg); Barbiturates, Urine Neg (Neg); Benzodiazepine, Urine Pos (Neg); Cocaine, Urine Neg (Neg); Fentanyl, Urine Neg (Neg); MDMA (Ecstacy), Urine Neg (Neg); Marijuana, Urine Pos (Neg); Methadone, Urine Neg (Neg); Opiate, Urine Pos (Neg); Phencyclidine, Urine Neg (Neg)
[2024-07-26] MEDS: MULTIVITAMIN TAB PO STA (19:22)
[2024-07-26] MEDS: LORazepam 2 MG/1 ML VIAL IV PRN ×2 (19:22→21:26)
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
[2024-07-26] MEDS ORDERED: ACETAMINOPHEN 325 MG TAB PO PRN (20:45)
[2024-07-26] MEDS ORDERED: MAGNESIUM HYDROXIDE SUSP 30 ML UDC PO PRN (20:45)
[2024-07-26] MEDS ORDERED: ONDANSETRON INJ 2 MG/ML 2 ML VIAL IV PRN (20:45)
[2024-07-26] MEDS ORDERED: POLYETHYLENE (MIRALAX) 17 GM PACK PO PRN (20:45)
[2024-07-26] MEDS: SODIUM CHLORIDE 0.45 % 1,000 ML IV SCH (21:12)
[2024-07-26] MEDS: HYDROmorphone INJ 0.5 MG/0.5 ML SYR IV PRN (21:13)
[2024-07-26] MEDS: THIAMINE HCL 100 MG in SYRINGE 9 ML IV STA (21:26)
[2024-07-26 21:30] LABS: BUN Creatinine Ratio 9.7 (10-20); Creatinine Clr Calc Pharmacy 113.6 ml/min; Potassium 3.7 mmol/L (3.5-5.1)
[2024-07-26 21:37] LABS: Hematocrit (blood only) 38.4 % (42.0-52.0); Mean Corpuscular Hemoglobin 30.8 pg (25.0-34.0); Mean Corpuscular Hgb Conc 33.9 g/dL (32.0-36.0); Platelet Count 261 K/uL (130-400); RDW Standard Deviation 46.6 fL (36.4-46.3); Red Blood Count 4.22 M/uL (4.70-6.10)
[2024-07-26] MEDS: cefTRIAXone SODIUM 1,000 MG/50 ML BAG IV SCH (21:51)
[2024-07-26] MEDS: GABAPENTIN 600 MG TAB PO SCH (22:44)
[2024-07-26] MEDS: ACETAMINOPHEN 500 MG TAB PO PRN (22:45)
--- NOTE | 2024-07-27 02:23 | XRay Report ---
Exam(s): XR CXR 2 VIEWS EXAM: XR Chest, 2 Views CLINICAL HISTORY: Reason for exam: fever, elevated WBC. TECHNIQUE: Frontal and lateral views of the chest. COMPARISON: Chest radiograph on 01/13/2023 FINDINGS: Hardware: None. Lungs/pleura: Questionable minimal opacity in the right lower lung. No other focal consolidation. No pleural effusion or pneumothorax. Heart/mediastinum: Normal. No cardiomegaly. Soft tissues: Unremarkable. Bones: No acute fracture. Upper abdomen: Normal. IMPRESSION: Questionable minimal opacity in the right lower lung which may represent atelectasis versus minimal infectious/inflammatory process. No other focal consolidation. Electronically signed by: Sadaf Candelaria M.D. 07/27/24 02:23 AM
[2024-07-27 04:37] LABS: Hematocrit (blood only) 37.4 % (42.0-52.0); Hemoglobin 12.5 g/dl (14.0-18.0); Mean Corpuscular Hemoglobin 30.9 pg (25.0-34.0); Mean Corpuscular Hgb Conc 33.4 g/dL (32.0-36.0); Mean Corpuscular Volume 92.3 fL (80.0-100.0); Mean Platelet Volume 10.8 fL (9.4-12.4); Platelet Count 247 K/uL (130-400); RDW Standard Deviation 47.5 fL (36.4-46.3); Red Blood Count 4.05 M/uL (4.70-6.10); White Blood Count 17.76 K/ul (4.8-10.8)
[2024-07-27 04:52] LABS: BUN Creatinine Ratio 8.5 (10-20); Calcium 9.1 mg/dl (8.6-10.3); Creatinine Clr Calc Pharmacy 112.4 ml/min; Potassium 3.7 mmol/L (3.5-5.1)
[2024-07-27] MEDS ORDERED: Ativan IV Alcohol Withdrawal--Active Protocol IV PRN (07:51)
[2024-07-27] MEDS ORDERED: chlordiazePOXIDE ALCOHOL WITHDRAWL 50MG PO STA (07:51)
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
[2024-07-27] MEDS ORDERED: LORazepam 2 MG/1 ML VIAL IV PRN (07:52)
[2024-07-27] MEDS: LORazepam 2 MG/1 ML VIAL IV PRN ×2 (08:05→15:10)
[2024-07-27] MEDS: chlordiazePOXIDE HCl 25 MG CAP PO SCH (08:05)
[2024-07-27] MEDS: FOLIC ACID 1 MG TAB PO SCH (08:06)
[2024-07-27] MEDS: MULTIVITAMIN TAB PO SCH (08:06)
[2024-07-27] MEDS: allopurinoL 100 MG TAB PO SCH (08:06)
[2024-07-27] MEDS: THIAMINE HCL 100 MG TAB PO SCH (08:06)
[2024-07-27] MEDS: GABAPENTIN 100 MG CAP PO SCH (08:07)
--- NOTE | 2024-07-27 08:07 | XRay Report ---
EXAM: XR femur RT 2V routine CLINICAL HISTORY: Stabbing pain in right femur, patient states that gout in his foot is flaring up TECHNIQUE: X-ray images of the right femur were obtained in anteroposterior (AP) and lateral projections. COMPARISON: No prior studies are available for comparison. FINDINGS: Bone Structure: The femoral shaft, neck, and proximal and distal regions are normal in structure and alignment. No evidence of acute fractures or dislocations. Bone density is within normal limits, and no osseous lesions or abnormalities are identified. The cortical bone is intact without evidence of periosteal reaction, cortical thinning, or irregularities. The medullary canal is normal in appearance, with no lytic or sclerotic lesions noted. Joint and Articular Surfaces: Joint spaces in the visualized knee regions are preserved, with no significant narrowing, osteophyte formation, or subchondral sclerosis. Visualized articular surfaces of the femur are smooth and regular, without any signs of irregularity, osteophyte formation, or erosion. Soft Tissues: Periarticular and surrounding soft tissues appear normal. No signs of soft tissue swelling, calcifications, or masses. IMPRESSION: No evidence of acute fractures, dislocations, or degenerative changes. Disclaimer: A subtle bone abnormality or fracture may not be readily apparent on X-rays. Clinical correlation and further imaging, including CT, MRI, or follow-up X-rays, are advised if clinically warranted. Electronically signed by Jes Carlos 07-27-2024 08:06 AM
--- NOTE | 2024-07-27 08:19 | Electrocardiogram Report ---
Test Reason : Blood Pressure : */* mmHG Vent. Rate : 128 BPM Atrial Rate : 128 BPM P-R Int : 144 ms QRS Dur : 76 ms QT Int : 304 ms P-R-T Axes : 47 -14 50 degrees QTcB Int : 443 ms Sinus tachycardia Otherwise normal ECG When compared with ECG of 03-Jul-2024 12:34, No significant change Confirmed by Lex Gant ([id number]) on 07/27/2024 8:19:41 AM Referred By: REFERRED SELF Confirmed By: Lex Gant
--- NOTE | 2024-07-27 08:21 | XRay Report ---
EXAM: XR pelvis 1-2V routine CLINICAL HISTORY: Stabbing pain in right femur, patient states that gout in his foot is flaring up TECHNIQUE: X-ray images of the pelvis were obtained in anteroposterior (AP) projection. COMPARISON: 07/26/2024 CT was reviewed. FINDINGS: Bone Structure: Pelvic bones, including the iliac wings, ischium, pubis, and sacrum, are normal and intact. No evidence of fractures, dislocations, or significant osseous lesions. Hip Joints: The right superior acetabular rim is seen (with well-corticated margins). Tiny marginal femoral spurs noted in both sides. Slightly reduced hip joint spaces. No evidence of hip dislocation or subluxation. Acetabulum: No signs of acetabular fracture or dysplasia. Symphysis Pubis: Symphysis pubis is normal and intact. No evidence of separation or widening. Sacroiliac Joints: Sacroiliac joints appear normal and unremarkable. No evidence of sacroiliitis or significant degenerative changes. Soft Tissues: Visualized soft tissues are normal and unremarkable. Additional Findings: No other significant abnormalities noted. IMPRESSION: 1. No acute osseous abnormality. 2. Right superior acetabular rim is seen with well-corticated margins and increased sclerosis (could represent chronic avulsive injury or non-fused ossification center). 3. Right mild to moderate hip joint effusion. MRI is advised for further evaluation if clinically warranted. 4. Mild degenerative changes of both hip joints. Disclaimer: A subtle bone abnormality or fracture may not be readily apparent on X-rays, thus clinical correlation and further imaging including follow-up CT, MRI, or follow-up X-rays are advised as needed. Electronically signed by Jes Carlos 07-27-2024 08:21 AM
[2024-07-27 08:42] LABS: Appearance Synovial Fluid Cloudy; Color Synovial Fluid Yellow; Mononuclear WBC Synovial 6.4 %; Polynuclear WBC Synovial 93.6 %; RBC Synovial Fluid Auto < 2000 /uL; Source Synovial Fluid Right Knee; WBC Synovial Fluid Auto 28495 /ul (0-200)
--- NOTE | 2024-07-27 09:40 | Ultrasound Report ---
US venous doppler LE RT HISTORY: 43 years-old Male r/o DVT acute pain and swelling of the lower legs COMPARISON: 04/02/2012 TECHNIQUE: Multiple real-time sonographic images of the right lower extremity deep venous structures were obtained assessing grayscale appearance, color and spectral flow. FINDINGS: Normal flow, compressibility, phasicity and augmentation. IMPRESSION: No sonographic evidence of deep venous thrombosis. ACT 112: Negative or not required by law. The above report was generated using voice recognition software. It may contain grammatical, syntax o r spelling errors. Electronically signed by: Basim Avelar M.D. 07/27/2024 9:38 AM
[2024-07-27] MEDS: predniSONE 20 MG TAB PO SCH (10:45)
--- NOTE | 2024-07-27 15:59 | Hospitalist Progress Note ---
Date of Service July 27, 2024 Assessment & Plan (1) Alcohol withdrawal syndrome: (2) Elevated white blood cell count, unspecified: (3) Intractable neuropathic pain of right lower extremity: (4) Right hip pain: (5) Tachycardia: Plan The patient is a 43-year-old gentleman with a known significant history of alcohol use in the past who presents with a 3-day history of severe right leg pain. R Leg Pain Gout Patient presenting with severe pain of his right lower extremity x-ray femur noting "No evidence of acute fractures, dislocations, or degenerative changes." lumbar spine CT noting chronic changes pelvic x-ray noting "Right mild to moderate hip joint effusion" and chronic fracture changes CT abdomen pelvis noting "Chronic appearing right acetabular fracture involving the superolateral aspect with no displacement.", follow venous Doppler of right lower extremity with no noted DVT Orthopedics consulted, appreciate recs. Noted or stated the following: "Plan: I am going to aspirate his knee joint today. Will send it off for analysis. I do think it probably be worth giving him a high dose of prednisone for this presumed gout. Will send the fluid off for culture and crystal analysis as well as Lyme testing. I do not think we need need any further imaging at this point. I do not suspect any fracture. He could be developing AVN of his femoral head which could cause some of the groin pain but most likely this is a gouty episode based on exam today. He can weight-bear as tolerated." Uric acid in June was elevated, repeat on 07/27/2024 was within normal limits Follow-up right knee joint fluid aspiration culture Blood cultures x 2 sets also pending pain control with p.o. Tylenol as needed, IV Toradol and IV Dilaudid Also started on p.o. prednisone for gouty presentation per orthopedics Continue to monitor Alcohol withdrawal Sinus tachycardia Possible pneumonia Patient with history of chronic alcohol use, but states for the past 2 months he has been abstinent, before drinking once more for the last 2 days due to pain urine tox positive for opiates, benzos and marijuana Noted sinus tachycardia to the 120s to 140s on EKG on admission and telemetry patient appears to be in acute alcohol withdrawal as well as uncontrolled pain which are likely the cause of his sinus tachycardia repeat EKG Troponin pending consider echo chest x-ray noting possible pneumonia CTA chest pending, rule out possible PE versus questionable aspiration pneumonia in setting of alcohol use Will continue with empiric Rocephin and doxycycline for possible pneumonia continue on IV fluids at this time AWSS protocol with Librium and as needed IV Ativan for withdrawal continue to monitor on telemetry Leukocytosis patient with significantly elevated white blood cell count Does note that he was recently on steroids which could be a cause Low suspicion for severe infection, lactate normal, procalcitonin and blood cultures currently pending Continue on empiric Rocephin and doxycycline as noted above for possible pneumonia, CTA chest pending to confirm Continue to monitor white blood cell count with a.m. labs Diet: Regular DVT prophylaxis: Subcu heparin Dispo: Home once medically stable Admission and Anticipated Discharge Date Admission Date: July 26, 2024 Subjective patient was seen in the a.m. Sitting up in bed Notes that he is in severe pain with his right lower extremity States he was just seen by orthopedics and had the knee drained. States that he has been free from alcohol for the past 2 months after drinking a case of beer and a bottle of radha daily for the last 2 years. States that the pain in his leg was so severe that for the last 2 days he has been using alcohol once more to help. Denied any chest pain or shortness of breath. Review of Systems Review of Systems: All systems reviewed & are unremarkable except as noted in Subjective Physical Exam Physical Exam: General: Alert, oriented Skin: No noted erythema to the knee or foot Psych: Appropriate mood and affect Neuro:tremulous HEENT: NC/AT CV: tachycardic Resp: Breath sounds clear bilaterally, no increased effort of breathing Abdomen: Soft, nontender Extremities: No noted erythema to the knee or foot Results & Data Results & Data Vital Signs (Past 12 Hours) Vital Signs Temp Pulse Pulse Resp BP Pulse Ox Pulse Ox 07/27/24 08:00 37.9 C H 147 H 22 140/86 97 07/27/24 04:16 36.7 C 124 H 18 129/81 100 07/27/24 00:00 96 07/26/24 22:49 37.3 C 132 H 18 145/83 H 99 07/26/24 22:18 127 H 07/26/24 21:00 07/26/24 20:47 134 H 07/26/24 20:45 37.2 C 128 H 18 149/74 H 96 11/16/24 20:45 96 07/26/24 20:45 37.2 C 128 H 18 149/74 H 96 O2 Del Method O2 Del Method 07/27/24 08:00 Room Air 07/27/24 04:16 Room Air 07/27/24 00:00 Room Air 07/26/24 22:49 Room Air 07/26/24 22:18 07/26/24 21:00 Room Air 07/26/24 20:47 07/26/24 20:45 Room Air 07/26/24 20:45 Room Air 07/26/24 20:45 Room Air Diagnostic Findings Abdomen/Pelvis CT 07/26/24 13:13 EXAMINATION: Abdomen and pelvis CT with CLINICAL HISTORY: Patient reports cannot use his whole leg, putting pressure on it causes pain, patient fell 4 times last night, not on blood thinners. PRIORS: None TECHNIQUE: Contiguous axial images were obtained through the abdomen and pelvis with the use of intravenous contrast. Sagittal and coronal reformations are supplied. FINDINGS: Lung bases unremarkable. The liver is enlarged measuring 21 cm. The gallbladder, portal vein, pancreas, spleen, stomach, adrenals, aorta and IVC are morphologically unremarkable. Kidneys enhance symmetrically. No obstructing renal calculus or hydronephrosis. No ascites or extraluminal gas. Appendix is normal in the right lower quadrant. Urinary bladder distended and morphologically unremarkable. A small amount of formed stool present in the colon. No dilated loops of bowel. No pericolonic inflammatory change or small bowel obstruction. No adenopathy. Prostate normal in size. A chronic appearing acetabular fracture is present, superior lateral aspect, image 63, series 300 and image 3013, series 3. IMPRESSION: 1. No CT evidence of an acute abdominal or pelvic abnormality. 1. Chronic appearing right acetabular fracture involving the superolateral aspect with no displacement. Please correlate with history of trauma. Electronically signed by Gayatri Peterson 07-26-2024 3:[address] 07/26/24 13:13 EXAMINATION: CT lumbar spine W/O con CLINICAL HISTORY: Cannot use whole right leg, putting pressure causes pain, fell 4 times. PRIORS: Plain film 01/12/2023 TECHNIQUE: Contiguous axial images were obtained through the lumbar spine without the use of intravenous contrast. Sagittal and coronal reformations are supplied. FINDINGS: Bone stock appears preserved. Grade 1 anterolisthesis of L4 on L5, unchanged. Vertebral body heights are well-maintained. No compression fracture. Moderate facet hypertrophic changes at L4-L5. Moderate to advanced facet hypertrophic changes at L5-S1, right greater than left. No paraspinal hematoma or soft tissue swelling. No transverse or spinous process fracture. Muscle bulk is normal. Sacroiliac joints are patent. Aorta is normal caliber. IMPRESSION: 1. Grade 1 anterolisthesis of L4 at L5, unchanged. 2. No acute fracture or paravertebral soft tissue swelling. 3. Moderate to advanced facet degenerative change at L4-L5 and L5-S1. Electronically signed by Gayatri Peterson 07-26-2024 3:46 PM Chest X-Ray 07/26/24 19:47 Exam(s): XR CXR 2 VIEWS EXAM: XR Chest, 2 Views CLINICAL HISTORY: Reason for exam: fever, elevated WBC. TECHNIQUE: Frontal and lateral views of the chest. COMPARISON: Chest radiograph on 01/13/2023 FINDINGS: Hardware: None. Lungs/pleura: Questionable minimal opacity in the right lower lung. No other focal consolidation. No pleural effusion or pneumothorax. Heart/mediastinum: Normal. No cardiomegaly. Soft tissues: Unremarkable. Bones: No acute fracture. Upper abdomen: Normal. IMPRESSION: Questionable minimal opacity in the right lower lung which may represent atelectasis versus minimal infectious/inflammatory process. No other focal consolidation. Electronically signed by: Sadaf Candelaria M.D. 07/27/24 02:23 AM Pelvis X-Ray 07/27/24 06:39 EXAM: XR pelvis 1-2V routine CLINICAL HISTORY: Stabbing pain in right femur, patient states that gout in his foot is flaring up TECHNIQUE: X-ray images of the pelvis were obtained in anteroposterior (AP) projection. COMPARISON: 07/26/2024 CT was reviewed. FINDINGS: Bone Structure: Pelvic bones, including the iliac wings, ischium, pubis, and sacrum, are normal and intact. No evidence of fractures, dislocations, or significant osseous lesions. Hip Joints: The right superior acetabular rim is seen (with well-corticated margins). Tiny marginal femoral spurs noted in both sides. Slightly reduced hip joint spaces. No evidence of hip dislocation or subluxation. Acetabulum: No signs of acetabular fracture or dysplasia. Symphysis Pubis: Symphysis pubis is normal and intact. No evidence of separation or widening. Sacroiliac Joints: Sacroiliac joints appear normal and unremarkable. No evidence of sacroiliitis or significant degenerative changes. Soft Tissues: Visualized soft tissues are normal and unremarkable. Additional Findings: No other significant abnormalities noted. IMPRESSION: 1. No acute osseous abnormality. 2. Right superior acetabular rim is seen with well-corticated margins and increased sclerosis (could represent chronic avulsive injury or non-fused ossification center). 3. Right mild to moderate hip joint effusion. MRI is advised for further evaluation if clinically warranted. 4. Mild degenerative changes of both hip joints. Disclaimer: A subtle bone abnormality or fracture may not be readily apparent on X-rays, thus clinical correlation and further imaging including follow-up CT, MRI, or follow-up X-rays are advised as needed. Electronically signed by Jes Carlos 07-27-2024 08:21 AM Femur X-Ray 07/27/24 06:40 EXAM: XR femur RT 2V routine CLINICAL HISTORY: Stabbing pain in right femur, patient states that gout in his foot is flaring up TECHNIQUE: X-ray images of the right femur were obtained in anteroposterior (AP) and lateral projections. COMPARISON: No prior studies are available for comparison. FINDINGS: Bone Structure: The femoral shaft, neck, and proximal and distal regions are normal in structure and alignment. No evidence of acute fractures or dislocations. Bone density is within normal limits, and no osseous lesions or abnormalities are identified. The cortical bone is intact without evidence of periosteal reaction, cortical thinning, or irregularities. The medullary canal is normal in appearance, with no lytic or sclerotic lesions noted. Joint and Articular Surfaces: Joint spaces in the visualized knee regions are preserved, with no significant narrowing, osteophyte formation, or subchondral sclerosis. Visualized articular surfaces of the femur are smooth and regular, without any signs of irregularity, osteophyte formation, or erosion. Soft Tissues: Periarticular and surrounding soft tissues appear normal. No signs of soft tissue swelling, calcifications, or masses. IMPRESSION: No evidence of acute fractures, dislocations, or degenerative changes. Disclaimer: A subtle bone abnormality or fracture may not be readily apparent on X-rays. Clinical correlation and further imaging, including CT, MRI, or follow-up X-rays, are advised if clinically warranted. Electronically signed by Jes Carlos 07-27-2024 08:06 AM Venous Doppler Study 07/27/24 08:03 US venous doppler LE RT HISTORY: 43 years-old Male r/o DVT acute pain and swelling of the lower legs COMPARISON: 04/02/2012 TECHNIQUE: Multiple real-time sonographic images of the right lower extremity deep venous structures were obtained assessing grayscale appearance, color and spectral flow. FINDINGS: Normal flow, compressibility, phasicity and augmentation. IMPRESSION: No sonographic evidence of deep venous thrombosis. ACT 112: Negative or not required by law. The above report was generated using voice recognition software. It may contain grammatical, syntax or spelling errors. Electronically signed by: Basim Avelar M.D. 07/27/2024 9:38 AM
[2024-07-27] MEDS: NICOTINE 14 MG/24 HR PATCH TD SCH (17:39)
[2024-07-27] MEDS: KETOROLAC TROMETHAMINE 15 MG/ML VIAL IV PRN (19:30)
[2024-07-27] MEDS: HEPARIN SOD 5,000 UNIT/0.5 ML VIAL SQ SCH (21:07)
[2024-07-27] MEDS: DOXYCYCLINE HYCLATE 100 MG CAP PO SCH (21:08)
[2024-07-27] MEDS: LIDOCAINE 5% 1 PATCH TD PRN (21:09)
[2024-07-28 06:09] LABS: Basophils # (auto) 0.03 K/uL (0.00-0.20); Basophils % (auto) 0.2 %; Eosinophils # (auto) 0.04 K/uL (0.00-0.50); Eosinophils % (auto) 0.2 %; Hematocrit (blood only) 34.8 % (42.0-52.0); Hemoglobin 11.7 g/dl (14.0-18.0); Immature Granulocytes # (auto) 0.17 K/uL (0.01-0.20); Immature Granulocytes % (auto) 0.9 %; Lymphocytes # (auto) 2.89 K/uL (1.20-3.40); Lymphocytes % (auto) 14.6 %; Mean Corpuscular Hemoglobin 30.7 pg (25.0-34.0); Mean Corpuscular Hgb Conc 33.6 g/dL (32.0-36.0); Mean Corpuscular Volume 91.3 fL (80.0-100.0); Mean Platelet Volume 11.1 fL (9.4-12.4); Monocytes # (auto) 1.89 K/uL (0.11-0.59); Monocytes % (auto) 9.5 %; Neutrophils # (auto) 14.78 K/uL (1.40-6.50); Neutrophils % (auto) 74.6 %; Platelet Count 234 K/uL (130-400); RDW Coefficient of Variation 13.5 % (11.5-14.5); RDW Standard Deviation 45.2 fL (36.4-46.3); Red Blood Count 3.81 M/uL (4.70-6.10)
[2024-07-28 06:22] LABS: Albumin Level 3.5 gm/dl (3.4-5.0); Bilirubin,Total 0.5 mg/dl (0.2-1.0); Calcium 9.5 mg/dl (8.6-10.3); Creatinine Clr Calc Pharmacy 105.6 ml/min; Globulin 3.5 gm/dl (2.5-4.0); Magnesium 2.1 mg/dl (1.7-2.4); Potassium 3.5 mmol/L (3.5-5.1)
--- NOTE | 2024-07-28 06:32 | Electrocardiogram Report ---
Test Reason : Blood Pressure : */* mmHG Vent. Rate : 139 BPM Atrial Rate : 139 BPM P-R Int : 138 ms QRS Dur : 72 ms QT Int : 286 ms P-R-T Axes : 37 -9 14 degrees QTcB Int : 435 ms Sinus tachycardia Otherwise normal ECG When compared with ECG of 26-Jul-2024 13:50, No significant change was found Confirmed by Lex Gant ([id number]) on 07/28/2024 6:32:48 AM Referred By: REFERRED SELF Confirmed By: Lex Gant
[2024-07-28] MEDS: chlordiazePOXIDE HCl 25 MG CAP PO SCH (10:36)
[2024-07-28] MEDS: OPTIRAY 320 125ml IV ONE (11:09)
--- NOTE | 2024-07-28 11:54 | CT Scan Report ---
CT angio chest PE protocol CT DOSE: 753.29 mGy.cm HISTORY: 43 years-old Male with PE. Acute shortness of breath with tachycardia TECHNIQUE: Multiple CTA images of the chest were obtained after the intravenous administration of 70 ml Optiray. Coronal and sagittal MIPS were obtained from the axial data set and were submitted for r eview. All measurements were obtained according to NASCET criteria. A dose lowering technique was ut ilized adhering to the principles of ALARA. COMPARISON: Duplex venous Doppler study 07/27/2024, chest radiographs 07/26/2024 FINDINGS: CTA: Heart is normal in size. Trace pericardial effusion. Unremarkable thoracic aorta. No pulmonary emboli identified. CT CHEST: No thyroid nodule or pathologically enlarged lymph nodes. Mild subsegmental bibasilar atelectasis antonia sis scarring. No pneumothorax, pleural effusion, airspace consolidation or pulmonary edema. There are no suspicious pulmonary nodules or masses. Central airways are patent. No acute upper abdominal abnormality. Hepatomegaly with hepatic steatosis. No acute fracture. IMPRESSION: 1. No pulmonary emboli. 2. No airspace consolidation typical for pneumonia. 3. Hepatomegaly with hepatic steatosis. ACT 112: Negative or not required by law. The above report was generated using voice recognition software. It may contain grammatical, syntax o r spelling errors. Electronically signed by: Basim Avelar M.D. 07/28/2024 11:52 AM
--- NOTE | 2024-07-28 16:28 | Hospitalist Progress Note ---
Date of Service July 28, 2024 Assessment & Plan (1) Alcohol withdrawal syndrome: (2) Elevated white blood cell count, unspecified: (3) Intractable neuropathic pain of right lower extremity: (4) Right hip pain: (5) Tachycardia: Plan The patient is a 43-year-old gentleman with a known significant history of alcohol use in the past who presents with a 3-day history of severe right leg pain. R Leg Pain Gout Patient presenting with severe pain of his right lower extremity x-ray femur noting "No evidence of acute fractures, dislocations, or degenerative changes." lumbar spine CT noting chronic changes pelvic x-ray noting "Right mild to moderate hip joint effusion" and chronic fracture changes CT abdomen pelvis noting "Chronic appearing right acetabular fracture involving the superolateral aspect with no displacement.", follow venous Doppler of right lower extremity with no noted DVT Orthopedics consulted, appreciate recs. Noted or stated the following: "Plan: I am going to aspirate his knee joint today. Will send it off for analysis. I do think it probably be worth giving him a high dose of prednisone for this presumed gout. Will send the fluid off for culture and crystal analysis as well as Lyme testing. I do not think we need need any further imaging at this point. I do not suspect any fracture. He could be developing AVN of his femoral head which could cause some of the groin pain but most likely this is a gouty episode based on exam today. He can weight-bear as tolerated." Uric acid in June was elevated, repeat on 07/27/2024 was within normal limits Follow-up right knee joint fluid aspiration culture Blood cultures x 2 sets NGTD pain control with p.o. Tylenol as needed, IV Toradol and IV Dilaudid Also started on p.o. prednisone for gouty presentation per orthopedics Lyme pending Continue to monitor Alcohol withdrawal Sinus tachycardia Patient with history of chronic alcohol use, but states for the past 2 months he has been abstinent, before drinking once more for the last 2 days due to pain urine tox positive for opiates, benzos and marijuana Noted sinus tachycardia to the 120s to 140s on EKG on admission and telemetry patient appears to be in acute alcohol withdrawal as well as uncontrolled pain which are likely the cause of his sinus tachycardia repeat EKG with once again noted sinus tachycardia Troponin wnl consider echo chest x-ray noting possible pneumonia CTA chest with no PE or pneumonia Will continue with empiric Rocephin and doxycycline, 48hr stop continue on IV fluids at this time AWSS protocol with Librium and as needed IV Ativan for withdrawal continue to monitor on telemetry Leukocytosis Possible pneumonia patient with significantly elevated white blood cell count Does note that he was recently on steroids which could be a cause chest x-ray noting possible pneumonia CTA chest with no PE or pneumonia Low suspicion for severe infection, lactate normal, procalcitonin elevated and blood cultures NGTD Continue on empiric Rocephin and doxycycline as noted above Continue to monitor white blood cell count with a.m. labs- noted pt n steroids once more Diet: Regular DVT prophylaxis: Subcu heparin Dispo: Home once medically stable Admission and Anticipated Discharge Date Admission Date: July 26, 2024 Subjective Patient was seen sitting up in bed No longer tremulous at the time of exam Stated that he still had persistent pain in his right lower extremity Asking about why he was made n.p.o. Review of Systems Review of Systems: All systems reviewed & are unremarkable except as noted in Subjective Physical Exam Physical Exam: General: Alert, oriented Skin: No noted erythema to the knee or foot Psych: Appropriate mood and affect Neuro:no longer tremulous, unable to move right leg HEENT: NC/AT CV: tachycardic Resp: Breath sounds clear bilaterally, no increased effort of breathing Abdomen: Soft, nontender Extremities: No noted erythema to the knee or foot Results & Data Results & Data Vital Signs (Past 12 Hours) Vital Signs Temp Pulse Pulse Resp BP Pulse Ox Pulse Ox 07/28/24 16:00 97 07/28/24 15:14 36.4 C L 115 H 16 116/69 99 07/28/24 13:00 97 07/28/24 11:11 36.5 C 99 H 17 128/87 97 07/28/24 08:00 97 07/28/24 07:43 81 07/28/24 07:19 36.3 C L 91 H 19 112/71 99 O2 Del Method O2 Del Method 07/28/24 16:00 Room Air 07/28/24 15:14 Room Air 07/28/24 13:00 Room Air 07/28/24 11:11 Room Air 07/28/24 08:00 Room Air 07/28/24 07:43 07/28/24 07:19 Room Air
--- NOTE | 2024-07-28 17:32 | Orthopedic Progress Note ---
Date of Service July 28, 2024 Assessment & Plan (1) Knee effusion, right: Plan: 43-year-old gentleman with multiple medical comorbidities of intractable right leg pain and tachycardia. Differential includes gout. His knee joint fluid did not show any crystals but still high suspicion for gout. Other consideration would be Lyme disease versus a bacterial infection. I think bacterial infection is unlikely based on his exam and the look of the fluid but always a concern. Plan: He is being treated with some prednisone which I think is appropriate and would assist with any gout management. Awaiting final results from the knee fluid aspirate. Cultures no growth to date. Organ to get an MRI of his hip to see if there is any hip joint fluid. He can continue to weight-bear as tolerated. Continue the prednisone. (2) Tachycardia: (3) Right hip pain: (4) Elevated white blood cell count, unspecified: (5) Gout of left wrist: Admission and Anticipated Discharge Date Admission Date: July 26, 2024 Subjective 43-year-old gentleman admitted with intractable right leg pain and tachycardia. He says he is continue to have the right leg pain and having difficulty walking. His knees feel little bit better since we aspirated yesterday. He is complaining of some rib discomfort now. Physical Exam Physical Exam: Physical examination reveals a pleasant middle-age male. He is sitting up in bed. He looks more comfortable today. He is less shaky and looks more comfortable. Examination of the right leg reveals leg to be well aligned. He continues to have a knee effusion which is somewhat improved. His range of mot ion of his knee is 0 to 90 degrees. He does not have much pain with hip motion. He is neurologically intact. Results & Data Vital Signs (Past 12 Hours) Vital Signs Temp Pulse Pulse Resp BP Pulse Ox Pulse Ox 07/28/24 16:00 97 07/28/24 15:14 36.4 C L 115 H 16 116/69 99 07/28/24 13:00 101 H 07/28/24 13:00 97 07/28/24 11:11 36.5 C 99 H 17 128/87 97 07/28/24 08:00 97 07/28/24 07:43 81 07/28/24 07:19 36.3 C L 91 H 19 112/71 99 O2 Del Method O2 Del Method 07/28/24 16:00 Room Air 07/28/24 15:14 Room Air 07/28/24 13:00 07/28/24 13:00 Room Air 07/28/24 11:11 Room Air 07/28/24 08:00 Room Air 07/28/24 07:43 07/28/24 07:19 Room Air Laboratory Results White cell count continues to be elevated. Hemoglobin 11.7. Macro 34.8. Electrolytes are stable. Gram stain shows no organisms. Cultures no growth. Crystal analysis of the fluid is no crystals.
--- NOTE | 2024-07-29 00:24 | Magnetic Resonance Report ---
Exam(s): MRI RIGHT HIP Without Contrast EXAM: MR Right Lower Extremity Without Intravenous Contrast, Hip CLINICAL HISTORY: Reason for exam: Hip Pain - rule out infection, effusion. TECHNIQUE: Multiplanar magnetic resonance images of the right hip without intravenous contrast. COMPARISON: No relevant prior studies available. FINDINGS: There is a joint effusion. There is soft tissue swelling and edema. There is signal abnormality in the vastus intermedius muscle in the rectus femoris muscle. Bony structures are intact. No evidence of acute fracture or dislocation. No bone marrow edema is noted. No evidence of avascular necrosis. IMPRESSION: There is a joint effusion. There is soft tissue swelling and edema. There is signal abnormality in the vastus intermedius muscle in the rectus femoris muscle. This may be related to myositis and/or partial tear. Electronically signed by: Josemanuel Yousif MD 07/29/24 00:23 AM
[2024-07-29 06:20] LABS: Basophils # (auto) 0.03 K/uL (0.00-0.20); Basophils % (auto) 0.2 %; Eosinophils # (auto) 0.07 K/uL (0.00-0.50); Eosinophils % (auto) 0.5 %; Hematocrit (blood only) 33.3 % (42.0-52.0); Immature Granulocytes # (auto) 0.13 K/uL (0.01-0.20); Immature Granulocytes % (auto) 0.9 %; Lymphocytes # (auto) 3.43 K/uL (1.20-3.40); Lymphocytes % (auto) 22.6 %; Mean Corpuscular Hemoglobin 30.2 pg (25.0-34.0); Mean Corpuscular Volume 91.5 fL (80.0-100.0); Mean Platelet Volume 11.3 fL (9.4-12.4); Monocytes # (auto) 1.17 K/uL (0.11-0.59); Monocytes % (auto) 7.7 %; Neutrophils # (auto) 10.34 K/uL (1.40-6.50); Neutrophils % (auto) 68.1 %; Platelet Count 331 K/uL (130-400); RDW Coefficient of Variation 13.7 % (11.5-14.5); RDW Standard Deviation 46.1 fL (36.4-46.3); Red Blood Count 3.64 M/uL (4.70-6.10); White Blood Count 15.17 K/ul (4.8-10.8)
[2024-07-29 06:32] LABS: Albumin Globulin Ratio 0.9 (0.9-2); Albumin Level 3.3 gm/dl (3.4-5.0); BUN Creatinine Ratio 22.2 (10-20); Bilirubin,Total 0.2 mg/dl (0.2-1.0); Calcium 9.4 mg/dl (8.6-10.3); Creatinine Clr Calc Pharmacy 117.4 ml/min; Globulin 3.5 gm/dl (2.5-4.0); Magnesium 2.3 mg/dl (1.7-2.4); Phosphorus 5.4 mg/dl (2.5-4.9); Potassium 3.4 mmol/L (3.5-5.1); Total Protein 6.8 gm/dl (6.0-8.3)
[2024-07-29] MEDS: oxyCODONE HCL IR 5 MG TAB (IMMEDIATE RELEASE) PO PRN (06:35)
[2024-07-29] MEDS: chlordiazePOXIDE HCl 25 MG CAP PO SCH (09:03)
[2024-07-29] MEDS: hydrOXYzine HCl 25 MG TAB PO PRN (11:07)
[2024-07-29] MEDS: POTASSIUM CHLORIDE CRTAB 20 MEQ TABCR PO STA (11:08)
--- NOTE | 2024-07-29 12:35 | Hospitalist Progress Note ---
Date of Service July 29, 2024 Assessment & Plan (1) Alcohol withdrawal syndrome: (2) Elevated white blood cell count, unspecified: (3) Intractable neuropathic pain of right lower extremity: (4) Right hip pain: (5) Tachycardia: Plan The patient is a 43-year-old gentleman with a known significant history of alcohol use in the past who presents with a 3-day history of severe right leg pain. R Leg Pain Gout Patient presenting with severe pain of his right lower extremity x-ray femur noting "No evidence of acute fractures, dislocations, or degenerative changes." lumbar spine CT noting chronic changes pelvic x-ray noting "Right mild to moderate hip joint effusion" and chronic fracture changes CT abdomen pelvis noting "Chronic appearing right acetabular fracture involving the superolateral aspect with no displacement.", follow venous Doppler of right lower extremity with no noted DVT MRI R hip noting joint effusion, soft tissue swelling and edema, possible myositis and/or partial tear. Orthopedics consulted, appreciate recs. Noted or stated the following: "Plan: I am going to aspirate his knee joint today. Will send it off for analysis. I do think it probably be worth giving him a high dose of prednisone for this presumed gout. Will send the fluid off for culture and crystal analysis as well as Lyme testing. I do not think we need need any further imaging at this point. I do not suspect any fracture. He could be developing AVN of his femoral head which could cause some of the groin pain but most likely this is a gouty episode based on exam today. He can weight-bear as tolerated." Uric acid in June was elevated, repeat on 07/27/2024 was within normal limits Follow-up right knee joint fluid aspiration culture Blood cultures x 2 sets NGTD pain control with p.o. Tylenol as needed, IV Toradol and IV Dilaudid Also started on p.o. prednisone for gouty presentation per orthopedics Lyme pending Continue to monitor Alcohol withdrawal Sinus tachycardia Patient with history of chronic alcohol use, but states for the past 2 months he has been abstinent, before drinking once more for the last 2 days due to pain urine tox positive for opiates, benzos and marijuana Noted sinus tachycardia to the 120s to 140s on EKG on admission and telemetry patient appears to be in acute alcohol withdrawal as well as uncontrolled pain which are likely the cause of his sinus tachycardia repeat EKG with once again noted sinus tachycardia Troponin wnl consider echo chest x-ray noting possible pneumonia CTA chest with no PE or pneumonia Will continue with empiric Rocephin (48hr stop) and doxycycline continue on IV fluids at this time AWSS protocol with Librium and as needed IV Ativan for withdrawal continue to monitor on telemetry Leukocytosis Possible pneumonia patient with significantly elevated white blood cell count Does note that he was recently on steroids which could be a cause chest x-ray noting possible pneumonia CTA chest with no PE or pneumonia Low suspicion for severe infection, lactate normal, procalcitonin elevated and blood cultures NGTD Was on empiric Rocephin and doxycycline as noted above, continue with po doxycycline Continue to monitor white blood cell count with a.m. labs- noted pt on steroids once more Anxiety Discussion of anxiety, patient requesting Ativan to help Discussion of using Ativan as needed for his withdrawal symptoms but would hesitate to use in this setting for chronic anxiety along with his narcotics for pain. Discussion of alternative treatments for anxiety such as as needed hydroxyzine and starting a daily Lexapro. Patient agreeable Continue daily lexapro 5mg Continue prn hydroxyzine 50mg TID Consider psych followup Diet: Regular DVT prophylaxis: Subcu heparin Dispo: Home once medically stable Admission and Anticipated Discharge Date Admission Date: July 26, 2024 Subjective patient was seen laying in bed Looks much better not as tremulous States he is able to lift the right leg further today, pain has improved Denying any fevers chills or night sweats Discussion of anxiety, patient requesting Ativan to help Discussion of using Ativan as needed for his withdrawal symptoms but would hesitate to use in this setting along with his narcotics for pain. Discussion of alternative treatments for anxiety such as as needed hydroxyzine and starting a daily Lexapro. Patient agreeable Review of Systems Review of Systems: All systems reviewed & are unremarkable except as noted in Subjective Physical Exam Physical Exam: General: Alert, oriented Skin: No noted erythema to the knee or foot Psych: Appropriate mood and affect Neuro:no longer tremulous, improvement with moving right leg HEENT: NC/AT CV: tachycardic Resp: Breath sounds clear bilaterally, no increased effort of breathing Abdomen: Soft, nontender Extremities: No noted erythema to the knee or foot Results & Data Results & Data Vital Signs (Past 12 Hours) Vital Signs Temp Pulse Resp BP Pulse Ox Pulse Ox O2 Del Method 07/29/24 10:50 36.4 C L 97 H 20 120/75 95 Room Air 07/29/24 08:00 97 07/29/24 07:24 36.5 C 96 H 19 120/77 100 Room Air 07/29/24 03:48 36.5 C 99 H 18 114/72 96 Room Air O2 Del Method 07/29/24 10:50 07/29/24 08:00 Room Air 07/29/24 07:24 07/29/24 03:48 Diagnostic Findings Abdomen/Pelvis CT 07/26/24 13:13 EXAMINATION: Abdomen and pelvis CT with CLINICAL HISTORY: Patient reports cannot use his whole leg, putting pressure on it causes pain, patient fell 4 times last night, not on blood thinners. PRIORS: None TECHNIQUE: Contiguous axial images were obtained through the abdomen and pelvis with the use of intravenous contrast. Sagittal and coronal reformations are supplied. FINDINGS: Lung bases unremarkable. The liver is enlarged measuring 21 cm. The gallbladder, portal vein, pancreas, spleen, stomach, adrenals, aorta and IVC are morphologically unremarkable. Kidneys enhance symmetrically. No obstructing renal calculus or hydronephrosis. No ascites or extraluminal gas. Appendix is normal in the right lower quadrant. Urinary bladder distended and morphologically unremarkable. A small amount of formed stool present in the colon. No dilated loops of bowel. No pericolonic inflammatory change or small bowel obstruction. No adenopathy. Prostate normal in size. A chronic appearing acetabular fracture is present, superior lateral aspect, image 63, series 300 and image 3013, series 3. IMPRESSION: 1. No CT evidence of an acute abdominal or pelvic abnormality. 1. Chronic appearing right acetabular fracture involving the superolateral aspect with no displacement. Please correlate with history of trauma. Electronically signed by Gayatri Peterson 07-26-2024 3:[address] 07/26/24 13:13 EXAMINATION: CT lumbar spine W/O con CLINICAL HISTORY: Cannot use whole right leg, putting pressure causes pain, fell 4 times. PRIORS: Plain film 01/12/2023 TECHNIQUE: Contiguous axial images were obtained through the lumbar spine without the use of intravenous contrast. Sagittal and coronal reformations are supplied. FINDINGS: Bone stock appears preserved. Grade 1 anterolisthesis of L4 on L5, unchanged. Vertebral body heights are well-maintained. No compression fracture. Moderate facet hypertrophic changes at L4-L5. Moderate to advanced facet hypertrophic changes at L5-S1, right greater than left. No paraspinal hematoma or soft tissue swelling. No transverse or spinous process fracture. Muscle bulk is normal. Sacroiliac joints are patent. Aorta is normal caliber. IMPRESSION: 1. Grade 1 anterolisthesis of L4 at L5, unchanged. 2. No acute fracture or paravertebral soft tissue swelling. 3. Moderate to advanced facet degenerative change at L4-L5 and L5-S1. Electronically signed by Gayatri Peterson 07-26-2024 3:46 PM Chest X-Ray 07/26/24 19:47 Exam(s): XR CXR 2 VIEWS EXAM: XR Chest, 2 Views CLINICAL HISTORY: Reason for exam: fever, elevated WBC. TECHNIQUE: Frontal and lateral views of the chest. COMPARISON: Chest radiograph on 01/13/2023 FINDINGS: Hardware: None. Lungs/pleura: Questionable minimal opacity in the right lower lung. No other focal consolidation. No pleural effusion or pneumothorax. Heart/mediastinum: Normal. No cardiomegaly. Soft tissues: Unremarkable. Bones: No acute fracture. Upper abdomen: Normal. IMPRESSION: Questionable minimal opacity in the right lower lung which may represent atelectasis versus minimal infectious/inflammatory process. No other focal consolidation. Electronically signed by: Sadaf Candelaria M.D. 07/27/24 02:23 AM Pelvis X-Ray 07/27/24 06:39 EXAM: XR pelvis 1-2V routine CLINICAL HISTORY: Stabbing pain in right femur, patient states that gout in his foot is flaring up TECHNIQUE: X-ray images of the pelvis were obtained in anteroposterior (AP) projection. COMPARISON: 07/26/2024 CT was reviewed. FINDINGS: Bone Structure: Pelvic bones, including the iliac wings, ischium, pubis, and sacrum, are normal and intact. No evidence of fractures, dislocations, or significant osseous lesions. Hip Joints: The right superior acetabular rim is seen (with well-corticated margins). Tiny marginal femoral spurs noted in both sides. Slightly reduced hip joint spaces. No evidence of hip dislocation or subluxation. Acetabulum: No signs of acetabular fracture or dysplasia. Symphysis Pubis: Symphysis pubis is normal and intact. No evidence of separation or widening. Sacroiliac Joints: Sacroiliac joints appear normal and unremarkable. No evidence of sacroiliitis or significant degenerative changes. Soft Tissues: Visualized soft tissues are normal and unremarkable. Additional Findings: No other significant abnormalities noted. IMPRESSION: 1. No acute osseous abnormality. 2. Right superior acetabular rim is seen with well-corticated margins and increased sclerosis (could represent chronic avulsive injury or non-fused ossification center). 3. Right mild to moderate hip joint effusion. MRI is advised for further evaluation if clinically warranted. 4. Mild degenerative changes of both hip joints. Disclaimer: A subtle bone abnormality or fracture may not be readily apparent on X-rays, thus clinical correlation and further imaging including follow-up CT, MRI, or follow-up X-rays are advised as needed. Electronically signed by Jes Carlos 07-27-2024 08:21 AM Femur X-Ray 07/27/24 06:40 EXAM: XR femur RT 2V routine CLINICAL HISTORY: Stabbing pain in right femur, patient states that gout in his foot is flaring up TECHNIQUE: X-ray images of the right femur were obtained in anteroposterior (AP) and lateral projections. COMPARISON: No prior studies are available for comparison. FINDINGS: Bone Structure: The femoral shaft, neck, and proximal and distal regions are normal in structure and alignment. No evidence of acute fractures or dislocations. Bone density is within normal limits, and no osseous lesions or abnormalities are identified. The cortical bone is intact without evidence of periosteal reaction, cortical thinning, or irregularities. The medullary canal is normal in appearance, with no lytic or sclerotic lesions noted. Joint and Articular Surfaces: Joint spaces in the visualized knee regions are preserved, with no significant narrowing, osteophyte formation, or subchondral sclerosis. Visualized articular surfaces of the femur are smooth and regular, without any signs of irregularity, osteophyte formation, or erosion. Soft Tissues: Periarticular and surrounding soft tissues appear normal. No signs of soft tissue swelling, calcifications, or masses. IMPRESSION: No evidence of acute fractures, dislocations, or degenerative changes. Disclaimer: A subtle bone abnormality or fracture may not be readily apparent on X-rays. Clinical correlation and further imaging, including CT, MRI, or follow-up X-rays, are advised if clinically warranted. Electronically signed by Jes Carlos 07-27-2024 08:06 AM Venous Doppler Study 07/27/24 08:03 US venous doppler LE RT HISTORY: 43 years-old Male r/o DVT acute pain and swelling of the lower legs COMPARISON: 04/02/2012 TECHNIQUE: Multiple real-time sonographic images of the right lower extremity deep venous structures were obtained assessing grayscale appearance, color and spectral flow. FINDINGS: Normal flow, compressibility, phasicity and augmentation. IMPRESSION: No sonographic evidence of deep venous thrombosis. ACT 112: Negative or not required by law. The above report was generated using voice recognition software. It may contain grammatical, syntax or spelling errors. Electronically signed by: Basim Avelar M.D. 07/27/2024 9:38 AM Chest CTA 07/27/24 15:38 CT angio chest PE protocol CT DOSE: 753.29 mGy.cm HISTORY: 43 years-old Male with PE. Acute shortness of breath with tachycardia TECHNIQUE: Multiple CTA images of the chest were obtained after the intravenous administration of 70 ml Optiray. Coronal and sagittal MIPS were obtained from the axial data set and were submitted for review. All measurements were obtained according to NASCET criteria. A dose lowering technique was utilized adhering to the principles of ALARA. COMPARISON: Duplex venous Doppler study 07/27/2024, chest radiographs 07/26/2024 FINDINGS: CTA: Heart is normal in size. Trace pericardial effusion. Unremarkable thoracic aorta. No pulmonary emboli identified. CT CHEST: No thyroid nodule or pathologically enlarged lymph nodes. Mild subsegmental bibasilar atelectasis versus scarring. No pneumothorax, pleural effusion, airspace consolidation or pulmonary edema. There are no suspicious pulmonary nodules or masses. Central airways are patent. No acute upper abdominal abnormality. Hepatomegaly with hepatic steatosis. No acute fracture. IMPRESSION: 1. No pulmonary emboli. 2. No airspace consolidation typical for pneumonia. 3. Hepatomegaly with hepatic steatosis. ACT 112: Negative or not required by law. The above report was generated using voice recognition software. It may contain grammatical, syntax or spelling errors. Electronically signed by: Basim Avelar M.D. 07/28/2024 11:52 AM Hip MRI 07/28/24 17:32 Exam(s): MRI RIGHT HIP Without Contrast EXAM: MR Right Lower Extremity Without Intravenous Contrast, Hip CLINICAL HISTORY: Reason for exam: Hip Pain - rule out infection, effusion. TECHNIQUE: Multiplanar magnetic resonance images of the right hip without intravenous contrast. COMPARISON: No relevant prior studies available. FINDINGS: There is a joint effusion. There is soft tissue swelling and edema. There is signal abnormality in the vastus intermedius muscle in the rectus femoris muscle. Bony structures are intact. No evidence of acute fracture or dislocation. No bone marrow edema is noted. No evidence of avascular necrosis. IMPRESSION: There is a joint effusion. There is soft tissue swelling and edema. There is signal abnormality in the vastus intermedius muscle in the rectus femoris muscle. This may be related to myositis and/or partial tear. Electronically signed by: Josemanuel Yousif MD 07/29/24 00:23 AM
--- NOTE | 2024-07-29 13:28 | Orthopedic Progress Note ---
Date of Service July 29, 2024 Assessment & Plan (1) Right hip pain: Plan: 43-year-old gentleman admitted with proposed alcohol withdrawal, tachycardia, severe right leg pain. He seems to be improved. Exact etiology behind this is all a bit unclear. He is got multiple signs suggestive of systemic inflammation. The exact etiology of this is not clear to me. I do not think it is a bacterial infection. Considerations would be gout or some type of rheum atological elbow polymyositis. In any case he is clinically improving and will continue to follow with him. At this point is a little unclear what what is helping him improved. My suspicion is that it is probably the prednisone but he is on antibiotics as well. Will continue to follow the cultures. Any questions can be direct me at [phone]. (2) Knee effusion, right: (3) Tachycardia: Admission and Anticipated Discharge Date Admission Date: July 26, 2024 Subjective 43-year-old gentleman admitted with intractable leg pain and tachycardia. He has been through extensive evaluation so far which has not really shown too much. Is got inflammation in his right knee. He is significantly improved from admission. Still in some pain but markedly improved. Physical Exam Physical Exam: Physical examination was a pleasant middle-age male. He is sitting up in bed looks comfortable this morning. His tremors are gone. He looks much more comfortable. Examination of the right leg reveals right knee effusion. He is got better range of motion 0 to 90 degrees with fairly mild pain. No real pain with hip motion. He is neurologically intact. Results & Data Vital Signs (Past 12 Hours) Vital Signs Temp Pulse Resp BP Pulse Ox Pulse Ox O2 Del Method 07/29/24 10:50 36.4 C L 97 H 20 120/75 95 Room Air 07/29/24 08:00 97 07/29/24 07:24 36.5 C 96 H 19 120/77 100 Room Air 07/29/24 03:48 36.5 C 99 H 18 114/72 96 Room Air O2 Del Method 07/29/24 10:50 07/29/24 08:00 Room Air 07/29/24 07:24 07/29/24 03:48 Laboratory Results Culture results of the right knee reveal no growth. Diagnostic Findings MRI of the hip was reviewed. The bone marrow and the bone itself and the looks good. He does have a small hip joint effusion. He also has some inflammation and edema in the surrounding muscles consistent with myositis.
[2024-07-29] MEDS: DOCUSATE SODIUM 100 MG CAP PO SCH (16:55)
[2024-07-30 06:26] LABS: Basophils # (auto) 0.04 K/uL (0.00-0.20); Basophils % (auto) 0.3 %; Eosinophils # (auto) 0.08 K/uL (0.00-0.50); Eosinophils % (auto) 0.6 %; Hematocrit (blood only) 33.3 % (42.0-52.0); Hemoglobin 10.8 g/dl (14.0-18.0); Immature Granulocytes % (auto) 0.7 %; Lymphocytes # (auto) 3.71 K/uL (1.20-3.40); Lymphocytes % (auto) 27.4 %; Mean Corpuscular Hemoglobin 30.3 pg (25.0-34.0); Mean Corpuscular Hgb Conc 32.4 g/dL (32.0-36.0); Mean Corpuscular Volume 93.3 fL (80.0-100.0); Mean Platelet Volume 11.2 fL (9.4-12.4); Monocytes # (auto) 0.93 K/uL (0.11-0.59); Monocytes % (auto) 6.9 %; Neutrophils # (auto) 8.69 K/uL (1.40-6.50); Neutrophils % (auto) 64.1 %; Platelet Count 374 K/uL (130-400); RDW Coefficient of Variation 13.9 % (11.5-14.5); RDW Standard Deviation 47.2 fL (36.4-46.3); Red Blood Count 3.57 M/uL (4.70-6.10); White Blood Count 13.55 K/ul (4.8-10.8)
[2024-07-30 06:48] LABS: Albumin Level 3.4 gm/dl (3.4-5.0); BUN Creatinine Ratio 20.8 (10-20); Bilirubin,Total 0.2 mg/dl (0.2-1.0); Calcium 9.2 mg/dl (8.6-10.3); Creatinine Clr Calc Pharmacy 137.2 ml/min; Globulin 3.3 gm/dl (2.5-4.0); Magnesium 2.2 mg/dl (1.7-2.4); Potassium 3.8 mmol/L (3.5-5.1); Total Protein 6.7 gm/dl (6.0-8.3)
[2024-07-30] MEDS ORDERED: ESCITALOPRAM OXALATE 10 MG TAB PO SCH (09:00)
[2024-07-30] MEDS: ESCITALOPRAM OXALATE 10 MG TAB PO SCH (09:27)
[2024-07-30 15:31] LABS: 7-Aminoclonaz, Confirm NEGATIVE ng/mL (<25); Codeine Urine NEGATIVE ng/mL (<50); Hydro-Alp Ur, GC/MS NEGATIVE ng/mL (<25); Hydrocodone Urine NEGATIVE ng/mL (<50); Hydromor Urine NEGATIVE ng/mL (<50); Hydroxyethylflurazepam, Conf NEGATIVE ng/mL (<50); Hydroxymidazolam Ur, GC/MS NEGATIVE ng/mL (<50); Hydroxytriazolam NEGATIVE ng/mL (<50); Lorazepam, Ur GC/MS NEGATIVE ng/mL (<50); Marijuana Quant, GCMS Urine 327 ng/mL (<5); Morphine Urine 774 ng/mL (<50); Nordiazepam, Confirm 565 ng/mL (<50); Norhydrocodone Conf Ur NEGATIVE ng/mL (<50); Noroxycodone Urine NEGATIVE ng/mL (<50); Oxazepam Ur, GC/MS 594 ng/mL (<50); Oxycodone Urine NEGATIVE ng/mL (<50); Oxymorph Urine NEGATIVE ng/mL (<50); Temazepam, Confirm 1280 ng/mL (<50)
--- NOTE | 2024-07-30 19:51 | Hospitalist Progress Note ---
Date of Service July 30, 2024 Assessment & Plan (1) Alcohol withdrawal syndrome: (2) Elevated white blood cell count, unspecified: (3) Intractable neuropathic pain of right lower extremity: (4) Right hip pain: (5) Tachycardia: Plan The patient is a 43-year-old gentleman with a known significant history of alcohol use in the past who presents with a 3-day history of severe right leg pain. R Leg Pain Gout Patient presenting with severe pain of his right lower extremity x-ray femur noting "No evidence of acute fractures, dislocations, or degenerative changes." lumbar spine CT noting chronic changes pelvic x-ray noting "Right mild to moderate hip joint effusion" and chronic fracture changes CT abdomen pelvis noting "Chronic appearing right acetabular fracture involving the superolateral aspect with no displacement.", follow venous Doppler of right lower extremity with no noted DVT MRI R hip noting joint effusion, soft tissue swelling and edema, possible myositis and/or partial tear. Orthopedics consulted, appreciate recs. Noted or stated the following: "Plan: I am going to aspirate his knee joint today. Will send it off for analysis. I do think it probably be worth giving him a high dose of prednisone for this presumed gout. Will send the fluid off for culture and crystal analysis as well as Lyme testing. I do not think we need need any further imaging at this point. I do not suspect any fracture. He could be developing AVN of his femoral head which could cause some of the groin pain but most likely this is a gouty episode based on exam today. He can weight-bear as tolerated." Uric acid in June was elevated, repeat on 07/27/2024 was within normal limits Follow-up right knee joint fluid aspiration culture Blood cultures x 2 sets NGTD pain control with p.o. Tylenol as needed, IV Toradol and IV Dilaudid Also started on p.o. prednisone for gouty presentation per orthopedics Lyme pending Continue to monitor Alcohol withdrawal Sinus tachycardia Patient with history of chronic alcohol use, but states for the past 2 months he has been abstinent, before drinking once more for the last 2 days due to pain urine tox positive for opiates, benzos and marijuana Noted sinus tachycardia to the 120s to 140s on EKG on admission and telemetry patient appears to be in acute alcohol withdrawal as well as uncontrolled pain which are likely the cause of his sinus tachycardia repeat EKG with once again noted sinus tachycardia Troponin wnl consider echo chest x-ray noting possible pneumonia CTA chest with no PE or pneumonia Will continue with empiric Rocephin (48hr stop) and doxycycline continue on IV fluids at this time AWSS protocol with Librium and as needed IV Ativan for withdrawal continue to monitor on telemetry Leukocytosis Possible pneumonia patient with significantly elevated white blood cell count Does note that he was recently on steroids which could be a cause chest x-ray noting possible pneumonia CTA chest with no PE or pneumonia Low suspicion for severe infection, lactate normal, procalcitonin elevated and blood cultures NGTD Was on empiric Rocephin and doxycycline as noted above, continue with po doxycycline Continue to monitor white blood cell count with a.m. labs- noted pt on steroids once more Anxiety Discussion of anxiety, patient requesting Ativan to help Discussion of using Ativan as needed for his withdrawal symptoms but would hesitate to use in this setting for chronic anxiety along with his narcotics for pain. Discussion of alternative treatments for anxiety such as as needed hydroxyzine and starting a daily Lexapro. Patient agreeable Continue daily lexapro 5mg Continue prn hydroxyzine 50mg TID Consider psych followup Diet: Regular DVT prophylaxis: Subcu heparin Dispo: Home once medically stable Admission and Anticipated Discharge Date Admission Date: July 26, 2024 Subjective Patient was seen laying in bed in NAD overall feels improved Denies any fevers chills, chest pain, shortness of breath, abd. pain, n/v Inquiring about discharge tomorrow as he feels better and wants to attend a concert Per previous hospitalist - Discussion of alternative treatments for anxiety such as as needed hydroxyzine and starting a daily Lexapro. Patient agreeable Review of Systems Review of Systems: All systems reviewed & are unremarkable except as noted in Subjective Physical Exam Physical Exam: General: WD/WN M in NAD Skin: No noted erythema to the knee or foot Neuro:alert, oriented, no longer tremulous, improvement with moving right leg HEENT: NC/AT CV: rrr Resp: Breath sounds clear bilaterally, no increased effort of breathing Abdomen: Soft, nontender Extremities: No noted erythema to the knee or foot Results & Data Results & Data Vital Signs (Past 12 Hours) Vital Signs Temp Pulse Pulse Resp BP Pulse Ox Pulse Ox 07/30/24 16:24 86 07/30/24 14:59 36.5 C 79 17 128/76 98 07/30/24 11:03 36.3 C L 95 H 18 125/77 96 07/30/24 08:46 94 H 07/30/24 08:00 97 O2 Del Method O2 Del Method 07/30/24 16:24 07/30/24 14:59 Room Air 07/30/24 11:03 Room Air 07/30/24 08:46 07/30/24 08:00 Room Air Laboratory Results 07/30/24 07/26/24 Range/Units 05:43 14:27 WBC 13.55 H (4.8-10.8) K/ul RBC 3.57 L (4.70-6.10) M/uL Hgb 10.8 L (14.0-18.0) g/dl Hct 33.3 L (42.0-52.0) % MCV 93.3 (80.0-100.0) fL MCH 30.3 (25.0-34.0) pg MCHC 32.4 (32.0-36.0) g/dL RDW Std Deviation 47.2 H (36.4-46.3) fL RDW Coeff of Dhiraj 13.9 (11.5-14.5) % Plt Count 374 (130-400) K/uL MPV 11.2 (9.4-12.4) fL Immature Gran % (Auto) 0.7 % Neut % (Auto) 64.1 % Lymph % (Auto) 27.4 % Dooly % (Auto) 6.9 % Eos % (Auto) 0.6 % Baso % (Auto) 0.3 % Neut # (Auto) 8.69 H (1.40-6.50) K/uL Lymph # (Auto) 3.71 H (1.20-3.40) K/uL D[place]y # (Auto) 0.93 H (0.11-0.59) K/uL Eos # (Auto) 0.08 (0.00-0.50) K/uL Baso # (Auto) 0.04 (0.00-0.20) K/uL Immature Gran # (Auto) 0.10 (0.01-0.20) K/uL Sodium 141 (136-145) mmol/L Potassium 3.8 (3.5-5.1) mmol/L Chloride 108 H (98-107) mmol/L Carbon Dioxide 24 (21-32) mmol/L Anion Gap 9 (3-11) BUN 16 (6-23) mg/dl Creatinine 0.77 (0.6-1.4) mg/dl Est Cr Clr Drug Dosing 137.2 ml/min eGFR 114.63 BUN/Creatinine Ratio 20.8 H (10-20) Glucose 100 H (70-99(Fasting)) mg/dl Calcium 9.2 (8.6-10.3) mg/dl Phosphorus 5.0 H (2.5-4.9) mg/dl Magnesium 2.2 (1.7-2.4) mg/dl Total Bilirubin 0.2 (0.2-1.0) mg/dl AST 31 (13-39) U/L ALT 25 (7-52) U/L Alkaline Phosphatase 128 H (34-104) U/L Total Protein 6.7 (6.0-8.3) gm/dl Albumin 3.4 (3.4-5.0) gm/dl Globulin 3.3 (2.5-4.0) gm/dl Albumin/Globulin Ratio 1.0 (0.9-2) U Codeine Confrm GC/MS NEGATIVE (<50) ng/mL Ur Morphine (GC/MS) 774 H (<50) ng/mL Ur Hydrocodone (GC/MS) NEGATIVE (<50) ng/mL Ur Norhydrocodone NEGATIVE (<50) ng/mL Ur Noroxycodone NEGATIVE (<50) ng/mL Urine Oxycodone (GC/MS) NEGATIVE (<50) ng/mL U Oxymorphone GC/MS NEGATIVE (<50) ng/mL Ur Hydromorphone (GC/MS) NEGATIVE (<50) ng/mL U OH-Alprazolam Confrm NEGATIVE (<25) ng/mL 7-Amino Clonazepam NEGATIVE (<25) ng/mL Ur Nordiazepam Confirm 565 H (<50) ng/mL U OH-ethylflurazepam NEGATIVE (<50) ng/mL U Lorazepam Cnf GC/MS NEGATIVE (<50) ng/mL U Oxazepam Confm GC/MS 594 H (<50) ng/mL Ur Temazepam Confirm 1280 H (<50) ng/mL U OH-Triazolam Confirm NEGATIVE (<50) ng/mL U OH-Midazolam Confirm NEGATIVE (<50) ng/mL U Marijuana THC Carboxy 327 H (<5) ng/mL Drug Screen Comment SEE NOTE Medications Administered Current Inpatient Medications Acetaminophen (Acetaminophen 500 Mg Tab) 1,000 mg PO Q6H PRN PRN Reason: Pain Stop: 08/25/24 20:44 Last Admin: 07/28/24 21:51 Dose: 1,000 mg Allopurinol (Allopurinol 100 Mg Tab) 100 mg PO DAILY [place] Stop: 08/26/24 08:59 Last Admin: 07/30/24 09:24 Dose: 100 mg Chlordiazepoxide HCl (Chlordiazepoxide Hcl 10 Mg Cap) 10 mg PO Q12H [place] Stop: 07/31/24 02:01 Last Admin: 07/30/24 13:23 Dose: 10 mg Docusate Sodium (Docusate Sodium 100 Mg Cap) 100 mg PO BID [place] Stop: 08/28/24 15:54 Last Admin: 07/30/24 09:27 Dose: 100 mg Doxycycline Hyclate (Doxycycline Hyclate 100 Mg Cap) 100 mg PO BID [place] Stop: 08/01/24 20:59 Last Admin: 07/30/24 09:23 Dose: 100 mg Escitalopram Oxalate (Escitalopram Oxalate 10 Mg Tab) 5 mg PO QAM [place] Stop: 08/29/24 08:59 Last Admin: 07/30/24 09:27 Dose: 5 mg Folic Acid (Folic Acid 1 Mg Tab) 1 mg PO QAM [place] Stop: 08/26/24 08:59 Last Admin: 07/30/24 09:25 Dose: 1 mg Gabapentin (Gabapentin 100 Mg Cap) 100 mg PO QAM [place] Stop: 08/26/24 08:59 Last Admin: 07/30/24 09:23 Dose: 100 mg Gabapentin (Gabapentin 600 Mg Tab) 600 mg PO HS [place] Stop: 08/25/24 20:59 Last Admin: 07/29/24 20:43 Dose: 600 mg Heparin Sodium (Porcine) (Heparin Sod 5,000 Unit/0.5 Ml Vial) 5,000 units SQ Q12 [place] Stop: 08/26/24 20:59 Last Admin: 07/30/24 09:30 Dose: 5,000 units Hydromorphone HCl (Hydromorphone Inj 0.5 Mg/0.5 Ml Syr) 0.5 mg IV Q6H PRN PRN Reason: Pain Stop: 08/09/24 19:36 Last Admin: 07/29/24 20:43 Dose: 0.5 mg Hydroxyzine HCl (Hydroxyzine Hcl 25 Mg Tab) 50 mg PO TID PRN PRN Reason: Anxiety/Insomnia Stop: 08/28/24 09:04 Last Admin: 07/30/24 09:26 Dose: 50 mg Ketorolac Tromethamine (Ketorolac Tromethamine 15 Mg/Ml Vial) 15 mg IV Q6H PRN PRN Reason: Moderate Pain (Scale 4, 5, 6) Stop: 08/01/24 16:01 Last Admin: 07/30/24 17:38 Dose: 15 mg Lidocaine (Lidocaine 5% 1 Patch) 1 patch TD DAILY PRN PRN Reason: Pain Stop: 08/25/24 20:44 Last Admin: 07/28/24 21:51 Dose: 1 patch Lorazepam (Lorazepam 2 Mg/1 Ml Vial) 1 mg IV UD PRN; Protocol PRN Reason: EtOH Withdrawal AWSS Score 6,7 Stop: 08/26/24 07:51 Last Admin: 07/28/24 20:15 Dose: 1 mg Lorazepam (Lorazepam 2 Mg/1 Ml Vial) 2 mg IV UD PRN; Protocol PRN Reason: EtOH Withdrawal AWSS Score 8,9 Stop: 08/26/24 07:51 Last Admin: 07/27/24 08:05 Dose: 2 mg Lorazepam (Lorazepam 2 Mg/1 Ml Vial) 3 mg IV ONCE PRN; Protocol PRN Reason: EtOH Withdrawal AWSS Score 10+ Magnesium Hydroxide (Magnesium Hydroxide Susp 30 Ml Udc) 30 ml PO Q12H PRN PRN Reason: Constipation Stop: 08/25/24 20:44 Miscellaneous (Remove Lidoderm Patch) 1 each N/A DAILY@2100 [facility] Stop: 08/25/24 20:59 Last Admin: 07/29/24 20:43 Dose: 1 each Miscellaneous (Remove Nicoderm Patch) 1 each N/A DAILY@0859 [facility] Stop: 08/27/24 08:58 Last Admin: 07/30/24 09:29 Dose: 1 each Multivitamins (Multivitamin Tab) 1 tab PO QAM [facility] Stop: 08/26/24 08:59 Last Admin: 07/30/24 09:24 Dose: 1 tab Nicotine (Nicotine 14 Mg/24 Hr Patch) 1 patch TD QAM [facility] Stop: 08/26/24 16:29 Last Admin: 07/30/24 09:29 Dose: 1 patch Ondansetron HCl (Ondansetron Inj 2 Mg/Ml 2 Ml Vial) 4 mg IV Q6H PRN PRN Reason: Nausea Stop: 08/25/24 20:44 Oxycodone HCl (Oxycodone Hcl Ir 5 Mg Tab (Immediate Release)) 5 - 10 mg PO QID PRN PRN Reason: Pain Stop: 08/12/24 02:14 Last Admin: 07/30/24 17:00 Dose: 5 mg Pantoprazole Sodium (Pantoprazole 40 Mg Tab) 40 mg PO DAILY PRN PRN Reason: Acid Reflux Stop: 08/25/24 21:03 Polyethylene Glycol (Polyethylene (Miralax) 17 Gm Pack) 17 gm PO DAILY PRN PRN Reason: Constipation Stop: 08/25/24 20:44 Prednisone (Prednisone 20 Mg Tab) 40 mg PO DAILY [facility] Stop: 08/26/24 08:59 Last Admin: 07/30/24 09:24 Dose: 40 mg Thiamine HCl (Thiamine Hcl 100 Mg Tab) 100 mg PO QAM [facility] Stop: 08/26/24 08:59 Last Admin: 07/30/24 09:25 Dose: 100 mg
[2024-07-30] MEDS: PANTOprazole 40 MG TAB PO PRN (23:55)
[2024-07-31 07:29] VITALS: RESP 20
[2024-07-31] MEDS: ALUMINUM/MAGNESIUM SUSP 30 ML UDC PO STA (09:11)
--- NOTE | 2024-07-31 10:13 | Discharge Summary ---
Date of Service July 31, 2024 Admission HPI Per Admitting Provider Joaquim Reyes is a 43-year-old male patient with a medical history significant for alcohol abuse history, depression, posttraumatic stress disorder, JACKSON, GERD and gout who presents to the emergency department via private vehicle for evaluation of right leg pain. He reports he is unable to put pressure on it due to severe pain. He reports he fell 4 times last night due to pain. He reports no known injury to the right leg, however has chronic issues due to an injury in 2002. He reports he feels the pain begins deep in his groin and extends into the right upper hip and thigh. He reports no scrotal pain. He reports no abdominal pain, nausea, or vomiting. He states inability to lift the right leg, or bear weight due to severe pain. He reports full sensation, and no weakness. He reports no dysuria, constipation, or diarrhea. Patient states he has not drank alcohol for 2 months but the pain was so bad he was drinking yesterday. He states he only had 2 alcoholic beverages but appears to be in some withdrawal with some tachycardia. Patient is an [employer] . [facility] [place] ER provider reached out to orthopedics. They feel the CT scan shows an old acetabular fracture which is probably not contributing to his current pain. They will see the patient in consultation. Workup in the ED reveals an elevated white blood count. Patient also has a tachycardia which could be from some alcohol withdrawal or possible early sepsis. Urinalysis looks unremarkable. His urine drug screen is positive for opioids, benzos and cannabis. He says he uses medical marijuana. Admission Exam Per Admitting Provider General- adult male seen at bedside in the ED. He is in moderate distress from the hip pain Head- atraumatic Eyes- PERRL, EOMI, anicteric ENT- oropharynx clear Neck- supple, no JVD, no adenopathy, no thyromegaly; carotids +2/2, no bruits appreciated Lungs- clear to auscultation and percussion Heart- regular rhythm tacky at 112; no murmur, no gallop, no rub appreciated Abdomen- normal bowel sounds, soft, nontender, no masses or hepatosplenomegaly Extremities- no pretibial edema, no calf tenderness; peripheral pulses intact Neuro- alert, oriented x 3; PERRL, EOMI; no facial palsy; no dysarthria; motor 5/5 bilaterally; no cogwheel rigidity; patellar DTRs +2/2; Musculoskeletal: He has positive straight leg raising on the right at about 15 degrees. Can barely do internal or external rotation without eliciting severe pain in the right hip Skin- warm & dry Principal Diagnosis Knee effusion, knee pain, gout Tachycardia secondary to likely alcohol withdrawal, and anxiety Discharge Exam General: WD/WN M in NAD Skin: No noted erythema to the knee or foot Neuro:alert, oriented, no longer tremulous, improvement with moving right leg HEENT: NC/AT CV: rrr Resp: Breath sounds clear bilaterally, no increased effort of breathing Abdomen: Soft, nontender Extremities: No noted erythema to the knee or foot Discharge Data Allergies Allergy/AdvReac Type Severity Reaction Status Date / Time No Known Allergies Allergy Verified 07/26/24 18:15 Consultations 07/26/24 19:01 ED Decision to Admit Stat 07/26/24 19:36 Consult Orthopedic Surgery Stat Ordered Studies 07/26/24 13:13 CT Abd and Pelvis [CT abd pelvis IV con only] Stat IMPRESSION: 1. No CT evidence of an acute abdominal or pelvic abnormality. 1. Chronic appearing right acetabular fracture involving the superolateral aspect with no displacement. Please correlate with history of trauma. CT lumbar spine w con Stat IMPRESSION: 1. Grade 1 anterolisthesis of L4 at L5, unchanged. 2. No acute fracture or paravertebral soft tissue swelling. 3. Moderate to advanced facet degenerative change at L4-L5 and L5-S1. 07/27/24 08:03 US venous doppler LE RT Urgent FINDINGS: Normal flow, compressibility, phasicity and augmentation. IMPRESSION: No sonographic evidence of deep venous thrombosis. 07/27/24 15:38 CT angio chest PE protocol Urgent FINDINGS: CTA: Heart is normal in size. Trace pericardial effusion. Unremarkable thoracic aorta. No pulmonary emboli identified. CT CHEST: No thyroid nodule or pathologically enlarged lymph nodes. Mild subsegmental bibasilar atelectasis versus scarring. No pneumothorax, pleural effusion, airspace consolidation or pulmonary edema. There are no suspicious pulmonary nodules or masses. Central airways are patent. No acute upper abdominal abnormality. Hepatomegaly with hepatic steatosis. No acute fracture. IMPRESSION: 1. No pulmonary emboli. 2. No airspace consolidation typical for pneumonia. 3. Hepatomegaly with hepatic steatosis. 07/28/24 17:32 MRI Hip [MR hip RT wo con] Routine FINDINGS: There is a joint effusion. There is soft tissue swelling and edema. There is signal abnormality in the vastus intermedius muscle in the rectus femoris muscle. Bony structures are intact. No evidence of acute fracture or dislocation. No bone marrow edema is noted. No evidence of avascular necrosis. IMPRESSION: There is a joint effusion. There is soft tissue swelling and edema. There is signal abnormality in the vastus intermedius muscle in the rectus femoris muscle. This may be related to myositis and/or partial tear. Hospital Course (1) Right hip pain: (2) Knee effusion, right: Plan The patient is a 43-year-old gentleman with a known significant history of alcohol use in the past who presents with a 3-day history of severe right leg pain. R Leg Pain Gout Patient presenting with severe pain of his right lower extremity x-ray femur noting "No evidence of acute fractures, dislocations, or degenerative changes." lumbar spine CT noting chronic changes pelvic x-ray noting "Right mild to moderate hip joint effusion" and chronic fracture changes CT abdomen pelvis noting "Chronic appearing right acetabular fracture involving the superolateral aspect with no displacement.", follow venous Doppler of right lower extremity with no noted DVT MRI R hip noting joint effusion, soft tissue swelling and edema, possible myositis and/or partial tear. Orthopedics consulted, appreciate recs. Noted or stated the following: "Plan: I am going to aspirate his knee joint today. Will send it off for analysis. I do think it probably be worth giving him a high dose of prednisone for this presumed gout. Will send the fluid off for culture and crystal analysis as well as Lyme testing. I do not think we need need any further imaging at this point. I do not suspect any fracture. He could be developing AVN of his femoral head which could cause some of the groin pain but most likely this is a gouty episode based on exam today. He can weight-bear as tolerated." Uric acid in June was elevated, repeat on 07/27/2024 was within normal limits Follow-up right knee joint fluid aspiration culture Blood cultures x 2 sets NGTD pain control with p.o. Tylenol as needed, IV Toradol and IV Dilaudid while inpt - switched to Po oxycodone prn Also started on p.o. prednisone for gouty presentation per orthopedics Lyme pending Continue to monitor Alcohol withdrawal Sinus tachycardia Patient with history of chronic alcohol use, but states for the past 2 months he has been abstinent, before drinking once more for the last 2 days due to pain urine tox positive for opiates, benzos and marijuana Noted sinus tachycardia to the 120s to 140s on EKG on admission and telemetry patient appears to be in acute alcohol withdrawal as well as uncontrolled pain which are likely the cause of his sinus tachycardia repeat EKG with once again noted sinus tachycardia Troponin wnl consider echo chest x-ray noting possible pneumonia CTA chest with no PE or pneumonia Will continue with empiric Rocephin (48hr stop) and doxycycline continue on IV fluids at this time AWSS protocol with Librium and as needed IV Ativan for withdrawal no more signs of withdrawal, finished the taper monitored on telemetry Leukocytosis Possible pneumonia patient with significantly elevated white blood cell count Does note that he was recently on steroids which could be a cause chest x-ray noting possible pneumonia CTA chest with no PE or pneumonia Low suspicion for severe infection, lactate normal, procalcitonin elevated and blood cultures NGTD Was on empiric Rocephin and doxycycline as noted above, continue with po doxycycline Continue to monitor white blood cell count with a.m. labs- noted pt on steroids once more WBC trending down Anxiety Discussion of anxiety, patient requesting Ativan to help Discussion of using Ativan as needed for his withdrawal symptoms but would hesitate to use in this setting for chronic anxiety along with his narcotics for pain. Discussion of alternative treatments for anxiety such as as needed hydroxyzine and starting a daily Lexapro. Patient agreeable Continue daily lexapro 5mg Continue prn hydroxyzine Consider psych followup Total Time Total Time Spent Total Time Spent (In Minutes): 40 Discharge Plan Discharge Items Patient Disposition: Home - Self-Care Reason For Visit: INTRACTABLE RLE PAIN,AMBULATORY DYSFUNCTION,ETOH Discharge Diagnosis: Knee effusion, knee pain, gout Tachycardia secondary to likely alcohol withdrawal, and anxiety Activity: Per Instructions section Non-emergency contact: Primary Care Provider and Specialist Call non-emergency contact if: you have any medication questions and your symptoms worsen Follow-up/Referrals: Nayeli Gutierrez MD [Primary Care Provider] - Diet: Regular Addtl Attending Provider Instructions: Follow up with primary care doctor within 1 week , also make sure to follow up with orthopedic surgery. You were started on Lexapro 5 mg daily, make sure to take it as prescribed and follow up with your primary care doctor. You may need further referral to help with treatment of your anxiety. Take prednisone 20 mg for next several days, as prescribed. Make sure to take omeprazole daily while on prednisone. Finish course of antibiotics as prescribed. For pain, you can take tylenol 1,000 mg three times a day. For more severe pain, you can take oxycodone 5 mg as prescribed, as needed. Pending Studies at Discharge: Yes Studies:: final results of knee joint effusion cultx, Lyme Stand-Alone Forms: My [facility] [employer], Smoking Cessation Medications and DC Order Prescriptions: New escitalopram oxalate 10 mg Tablet 5 mg PO QAM Qty: 30 0RF doxycycline hyclate 100 mg Capsule 100 mg PO BID 2 Days Qty: 4 0RF oxycodone 5 mg Tablet 5 mg PO QID PRN (Reason: pain) Qty: 14 0RF hydroxyzine HCl 25 mg Tablet 25 mg PO TID PRN (Reason: anxiety) Qty: 10 0RF prednisone 20 mg Tablet 20 mg PO DAILY Qty: 4 0RF Continued acetaminophen [Tylenol Extra Strength] 500 mg Tablet 1,000 mg PO Q6H PRN (Reason: Pain) lidocaine [Lidoderm] 5 % adhesive patch,medicated 1 patch topical DAILY PRN (Reason: Pain) Rx Instructions: leave on most painful area for up to 12 hrs allopurinol 100 mg tablet 100 mg PO DAILY Qty: 30 0RF gabapentin 600 mg tablet 600 mg PO HS Rx Instructions: LAST FILLED 11/19/23 FOR 90 CAPS/90 DAYS gabapentin 100 mg capsule 100 mg PO QAM Rx Instructions: LAST FILLED 11/19/23 FOR 90 CAPS/90 DAYS Changed omeprazole 20 mg Capsule,Delayed Release(Dr/Ec) 20 mg PO DAILY Qty: 0 0RF Discharge Orders: Discharge Order (Routine); Ordered 07/31/24 Ordered By: Delbert Caban Admission Data Admit Date/Time: 07/26/24 19:36 Attending Provider: Delbert Caban Admit Provider: Manuel Silva Primary Care Provider: Nayeli Gutierrez Other Providers: [facility]; Mnauel Silva; Vega Diamond; Camille Crenshaw; Karen Markham; More Senior; Keny Renee; Stefano Cerda; Monet Castillo; Wagner Elliott; Francisco Howe; Niyah Vicente; Sanju Carr; Shanti Henson; Jose Luis Cooley; Radha Trejo; Mi Abreu; Kacie Gross; Josefa Reinoso
[2024-07-31] MEDS: FAMOTIDINE 20 MG TAB PO SCH (11:14)
[2024-07-31 11:18] VITALS: BP 124/81; PULSE 89; TEMP 97.7; O2SAT 98
== END 2024-07-31 13:30 | disposition home or self-care (01) | DRG 896 ==
LOC: ED 12:09 → SUATTDRO 19:36 → 4W 19:36